=== PATIENT | female | born 1950 | race Caucasian/White ===

== ENCOUNTER 2016-11-12 10:01 | Emergency (ER) | payer MEDICARE, OTHER ==
[2016-11-12] MEDS ORDERED: ACETAMINOPHEN IV (For NPO) 1,000 MG in EMPTY BAG 1 BAG IVPB STA (10:56)
[2016-11-12] MEDS ORDERED: METOCLOPRAMIDE 5 MG/ML 2 ML VIAL IVP STA (10:56)
[2016-11-12] MEDS ORDERED: diphenhydrAMINE 50 MG/ML 1 ML VIAL IVP STA (10:56)
[2016-11-12 12:14] VITALS: RESP 18; TEMP 97.3
[2016-11-12] MEDS ORDERED: FLUCONAZOLE 150 MG TAB PO STA (12:43)
--- NOTE | 2016-11-12 12:43 | ED ---
General Adult HPI - General Chief complaint: Headache Stated complaint: Congestion Time Seen by Provider: 11/12/16 10:36 Source: patient Mode of arrival: ambulatory Limitations: no limitations - History of Present Illness Initial comments: 66-year-old female presenting for evaluation of sinus congestion and headache. She states that her symptoms started about 6 days ago and she was seen in an urgent care yesterday where she was prescribed Augmentin and discharged home. She states since then her symptoms have continued to worsen with a headache and her congestion has not improved. She denies any fevers chills nausea vomiting or change in vision although she does have light sensitivity. There is no neck rigidity or decreased range of motion. She further denies ataxia. - Related Data Home Medications Medication Instructions Recorded Confirmed Aspirin 81 mg PO DAILY 11/12/16 11/12/16 Atorvastatin [Lipitor] 20 mg PO HS 11/12/16 11/12/16 Cetirizine HCl [Zyrtec] 10 mg PO DAILY 11/12/16 11/12/16 Cholecalciferol [Vitamin D3] 400 unit PO DAILY@1200 11/12/16 11/12/16 Diazepam [Valium] 2 mg PO HS 11/12/16 11/12/16 Levothyroxine Sodium [Synthroid] 137 mcg PO MOTUWETHFR 11/12/16 11/12/16 Levothyroxine Sodium [Synthroid] 150 mcg PO SUSA 11/12/16 11/12/16 Previous Rx's Medication Instructions Recorded Azithromycin [Zithromax Z-pack] 0 mg PO DIRECTED #6 tab 11/12/16 Allergies Allergy/AdvReac Type Severity Reaction Status Date / Time ibuprofen [From Motrin] Allergy Anaphylaxis Verified 11/12/16 12:54 Sulfa (Sulfonamide Allergy Swelling Verified 11/12/16 12:54 Antibiotics) Tetracyclines AdvReac Nausea & Verified 11/12/16 12:54 Vomiting Review of Systems ROS Statement: Those systems with pertinent positive or pertinent negative responses have been documented in the HPI. ROS Other: All systems not noted in ROS Statement are negative. Constitutional: Denies: fever, chills, weakness, weight change Eyes: Reports: other (Light sensitivity). Denies: eye discharge, vision change ENT: Denies: ear pain, throat pain Respiratory: Denies: cough, dyspnea, wheezes, hemoptysis Cardiovascular: Denies: chest pain, palpitations Endocrine: Reports: fatigue. Denies: polydipsia, polyuria Gastrointestinal: Denies: abdominal pain, nausea, vomiting Genitourinary: Denies: urgency, dysuria Musculoskeletal: Denies: back pain, myalgia Skin: Denies: rash, lesions Neurological: Reports: headache. Denies: weakness, numbness, paresthesias, confusion Psychiatric: Denies: anxiety, depression Past Medical History Past Medical History: Cancer, COPD, Thyroid Disorder Additional Past Medical History / Comment(s): breast cancer History of Any Multi-Drug Resistant Organisms: None Reported Past Surgical History: Breast Surgery, Ear Surgery, Hysterectomy, Orthopedic Surgery, Tonsillectomy Additional Past Surgical History / Comment(s): left lumpectomy Past Psychological History: No Psychological Hx Reported Smoking Status: Former smoker Past Alcohol Use History: None Reported Past Drug Use History: None Reported General Exam Limitations: no limitations General appearance: alert, in no apparent distress Head exam: Present: atraumatic, normocephalic, normal inspection Eye exam: Present: normal appearance, PERRL, EOMI Pupils: Present: normal accommodation. Absent: irregular, unequal ENT exam: Present: normal exam, normal oropharynx, mucous membranes moist Neck exam: Present: normal inspection. Absent: tenderness, meningismus Respiratory exam: Present: normal lung sounds bilaterally. Absent: respiratory distress, wheezes, rales Cardiovascular Exam: Present: regular rate, normal rhythm. Absent: bradycardia , tachycardia, irregular rhythm GI/Abdominal exam: Present: soft. Absent: distended, tenderness, guarding Rectal exam: Present: deferred Extremities exam: Present: normal inspection, full ROM, normal capillary refill. Absent: tenderness, pedal edema, joint swelling, calf tenderness Neurological exam: Present: alert, oriented X3, CN II-XII intact, normal gait, reflexes normal. Absent: altered, abnormal gait, motor sensory deficit Psychiatric exam: Present: normal affect, normal mood Skin exam: Present: warm, dry, intact, normal color. Absent: rash Course Vital Signs 11/12/16 11/12/16 11/12/16 10:06 12:13 13:02 Temperature 98.4 F 97.3 F L 97.3 F L Pulse Rate 97 72 68 Respiratory 20 18 18 Rate Blood Pressure 126/79 131/80 139/76 O2 Sat by Pulse 98 95 95 Oximetry Medical Decision Making - Medical Decision Making 66-year-old female presented for evaluation of sinus congestion and pressure with associated headache. On physical examination she is exhibiting sensitivity to light but cranial nerves II through XII are intact with no focal neurologic deficits and she has normal gait and ambulation. Tenderness to palpation over the frontal maxillary sinuses. Patient given a headache cocktail of IV Tylenol, Reglan, and Benadryl with marked improvement in headache. She states that the Augmentin was giving her GI distress and this will be discontinued and she'll be started on a new antibiotic. Patient was advised to follow-up with primary care physician but to return if her symptoms should worsen or persist. She acknowledged an understanding of this information and agreed with this plan of care. Disposition Clinical Impression: Sinusitis, Headache Disposition: HOME SELF-CARE Condition: Stable Instructions: Acute Headache (ED) Additional Instructions: Please use medication as discussed. Please follow up with family doctor if symptoms have not improved over the next two days. Please return to the emergency room if your symptoms increase or worsen or for any other concerns. Prescriptions: Azithromycin [Zithromax Z-pack] 0 mg PO DIRECTED #6 tab Referrals: Jaciel Mathias MD [Primary Care Provider] - 1-2 days Time of Disposition: 12:45
[2016-11-12 13:09] VITALS: BP 139/76; PULSE 68
[2016-11-12] MEDS ORDERED: ACET/COD 300 MG/30 MG STARTER PACK 6 TAB BTL PO STA (13:09)
== END 2016-11-12 13:12 | disposition home or self-care (01) ==
LOC: EC 10:01
DX: J32.9 Chronic sinusitis, unspecified (principal); E07.9 Disorder of thyroid, unspecified; Z79.82 Long term (current) use of aspirin; Z79.899 Other long term (current) drug therapy; Z88.2 Allergy status to sulfonamides; Z88.6 Allergy status to analgesic agent; Z87.891 Personal history of nicotine dependence
CPT/HCPCS: 99283; 96374; 96375 ×2; J1200; J2765; J0131

== ENCOUNTER → 2017-05-15 | Outpatient (CLI) | payer MEDICARE, OTHER ==
--- NOTE | 2017-05-22 13:21 | MM ---
Reason for exam: additional evaluation requested from prior study. Last mammogram was performed 1 year ago. History: Patient is postmenopausal, has history of breast cancer at age 53, and history of high-risk lesion on a previous biopsy. Family history of breast cancer in sister at age 57. Malignant stereotactic core biopsy of the left breast, January 02, 2004. Cyst aspiration of the left breast. Core biopsy of the left breast. Lumpectomy of the left breast. Radiation therapy of the left breast. Took hormonal contraceptives for 3 years beginning at age 24. Took estrogen for 8 years beginning at age 43. Took tamoxifen for 5 years beginning at age 54. Physical Findings: A clinical breast exam by your physician is recommended on an annual basis and results should be correlated with mammographic findings. MG 3D Diag Mammo W/Cad XENIA Bilateral CC and MLO view(s) were taken. Prior study comparison: May 13, 2016, bilateral MG 3d diag mammo w/cad XENIA. March 20, 2015, bilateral MG diagnostic mammo w CAD XENIA. The breast tissue is heterogeneously dense. This may lower the sensitivity of mammography. There is chronic nodularity bilaterally. Stable post operative changes in the left breast. No significant new findings when compared with previous films. These results were verbally communicated with the patient and result sheet given to the patient on 05/15/17. ASSESSMENT: Benign, BI-RAD 2 RECOMMENDATION: Follow-up diagnostic mammogram of both breasts in 1 year. Manage patient on a clinical basis.
== END | disposition home or self-care (01) ==
LOC: RADMAMWWP 09:23
PROVIDERS: ATTEND Internal Medicine Hematology & Oncology
DX: Z08 Encounter for follow-up examination after completed treatment for malignant neoplasm (principal); Z85.3 Personal history of malignant neoplasm of breast
CPT/HCPCS: G0204; G0279

== ENCOUNTER → 2018-01-16 | Outpatient (CLI) | payer MEDICARE, OTHER ==
[2018-01-16 17:00] LABS: Basophils # (A) 0.1 k/uL (0-0.2); Basophils % (A) 1 %; Eosinophils # (A) 0.2 k/uL (0-0.7); Eosinophils % (A) 3 %; HCT 45.1 % (34.0-46.0); HGB 14.7 gm/dL (11.4-16.0); Lymphocytes # (A) 1.8 k/uL (1.0-4.8); Lymphocytes % (A) 29 %; MCH 28.5 pg (25.0-35.0); MCHC 32.6 g/dL (31.0-37.0); MCV 87.6 fL (80.0-100.0); Mean Platelet Volume 8.2; Monocytes # (A) 0.4 k/uL (0-1.0); Monocytes % (A) 7 %; Neutrophils # (A) 3.7 k/uL (1.3-7.7); Neutrophils % (A) 58 %; Platelet Count 234 k/uL (150-450); RBC 5.15 m/uL (3.80-5.40); RDW 13.7 % (11.5-15.5); WBC 6.3 k/uL (3.8-10.6)
[2018-01-16 17:04] LABS: Appearance,Urine Clear (Clear); Bilirubin,Urine Negative (Negative); Blood,Urine Negative (Negative); Color,Urine Yellow; Glucose,Urine (UA) Negative (Negative); Ketones,Urine Negative (Negative); Leukocyte Esterase,Urine Trace (Negative); Mucus,Urine Rare /hpf; Nitrite,Urine Negative (Negative); PH, Urine 6.5 (5.0-8.0); Protein,Urine Negative (Negative); RBC,Urine <1 /hpf (0-5); Specific Gravity,Urine 1.017 (1.001-1.035); Squamous Epithelial Cell,Urine <1 /hpf (0-4); Urobilinogen,Urine <2.0 mg/dL (<2.0); WBC,Urine 1 /hpf (0-5)
[2018-01-16 17:24] LABS: ALT 36 U/L (9-52); AST 22 U/L (14-36); Albumin 4.3 g/dL (3.5-5.0); Alkaline Phosphatase 148 U/L (38-126); Anion Gap 13 mmol/L; Blood Urea Nitrogen 17 mg/dL (7-17); C Reactive Protein <5.0 mg/L (<10.0); Calcium 9.8 mg/dL (8.4-10.2); Carbon Dioxide 27 mmol/L (22-30); Chloride 102 mmol/L (98-107); Glucose 110 mg/dL (74-99); Potassium 4.4 mmol/L (3.5-5.1); Sodium 142 mmol/L (137-145); Total Bilirubin 0.2 mg/dL (0.2-1.3)
[2018-01-16 18:12] LABS: Creatine Kinase 64 U/L (30-135)
[2018-01-16 18:27] LABS: T4, Free (Free Thyroxine) 1.94 ng/dL (0.78-2.19)
[2018-01-16 19:11] LABS: Erythrocyte Sedimentation Rate 20 mm/hr (0-20)
[2018-01-17 01:30] LABS: Cyclic Citrullinated Pep IgG NEGATIVE (NEGATIVE)
[2018-01-17 01:53] LABS: Rheumatoid Factor 11 IU/mL (0-15); Streptolysin O Ab(ASO) 104 IU/mL (0-200)
[2018-01-17 02:02] LABS: Vitamin D 25 Hydroxy 53.7 ng/mL (30.0-100.0)
[2018-01-17 04:46] LABS: Angiotensin-1 Converting Enz. 65 U/L (8-52)
[2018-01-17 12:53] LABS: HLA B27 NEGATIVE
== END | disposition home or self-care (01) ==
LOC: LABWHC1 16:25
PROVIDERS: ATTEND Orthopaedic Surgery
DX: M17.12 Unilateral primary osteoarthritis, left knee (principal); M21.162 Varus deformity, not elsewhere classified, left knee; S83.242A Other tear of medial meniscus, current injury, left knee, initial encounter; M79.641 Pain in right hand
CPT/HCPCS: 36415; 80053; 81001; 82164; 82306; 82550; 84439; 84443; 84550; 85025; 85652; 86038; 86060; 86140; 86200; 86431; 86618; 86812

== ENCOUNTER → 2018-02-15 | Outpatient (CLI) | payer MEDICARE, OTHER ==
[2018-02-15 09:40] LABS: Basophils # (A) 0.1 k/uL (0-0.2); Basophils % (A) 1 %; Eosinophils # (A) 0.2 k/uL (0-0.7); Eosinophils % (A) 5 %; HCT 40.9 % (34.0-46.0); HGB 13.8 gm/dL (11.4-16.0); Lymphocytes # (A) 1.5 k/uL (1.0-4.8); Lymphocytes % (A) 35 %; MCH 29.4 pg (25.0-35.0); MCHC 33.7 g/dL (31.0-37.0); MCV 87.3 fL (80.0-100.0); Mean Platelet Volume 7.6; Monocytes # (A) 0.3 k/uL (0-1.0); Monocytes % (A) 8 %; Neutrophils # (A) 2.1 k/uL (1.3-7.7); Neutrophils % (A) 48 %; Platelet Count 199 k/uL (150-450); RBC 4.68 m/uL (3.80-5.40); RDW 13.9 % (11.5-15.5); WBC 4.4 k/uL (3.8-10.6)
[2018-02-15 10:00] LABS: ALT 34 U/L (9-52); AST 20 U/L (14-36); Alkaline Phosphatase 118 U/L (38-126); Anion Gap 9 mmol/L; Blood Urea Nitrogen 16 mg/dL (7-17); C Reactive Protein 7.9 mg/L (<10.0); Calcium 9.9 mg/dL (8.4-10.2); Carbon Dioxide 28 mmol/L (22-30); Chloride 103 mmol/L (98-107); Cholesterol 140 mg/dL (<200); Glucose 110 mg/dL (74-99); HDL Cholesterol 63 mg/dL (40-60); LDL Cholesterol,Calculated 45 mg/dL (0-99); Potassium 4.9 mmol/L (3.5-5.1); Sodium 140 mmol/L (137-145); Total Bilirubin 0.4 mg/dL (0.2-1.3); Total Protein 6.5 g/dL (6.3-8.2); Triglycerides 160 mg/dL (<150)
[2018-02-15 12:51] LABS: Erythrocyte Sedimentation Rate 23 mm/hr (0-20)
[2018-02-15 16:15] LABS: Rheumatoid Factor 10 IU/mL (0-15)
[2018-02-15 16:19] LABS: Vitamin D 25 Hydroxy 62.6 ng/mL (30.0-100.0)
[2018-02-15 16:39] LABS: Folate, Serum 18.8 ng/mL
[2018-02-15 16:57] LABS: Anti-DNA, DS unit <1.0 IU/mL; Cyclic Citrullinated Pep IgG NEGATIVE (NEGATIVE); DNA Double-Stranded NEGATIVE (NEGATIVE); RNP <0.2 AI
[2018-02-15 18:08] LABS: Hepatitis B Core IgM Non-Reactive (Non-Reactive); Hepatitis B Surface AB- Quant 3.5 mIU/mL; Hepatitis C IgG Antibody Non-Reactive (Non-Reactive)
== END | disposition home or self-care (01) ==
LOC: LABWHC1 08:58
PROVIDERS: ATTEND Internal Medicine Interventional Cardiology
DX: M25.50 Pain in unspecified joint (principal)
CPT/HCPCS: 36415; 80053; 80061; 82306; 82607; 82746; 84165; 85025; 85652; 86038; 86140; 86160; 86200; 86225; 86235; 86431; 86705; 86706; 86803; 87340

== ENCOUNTER → 2018-05-10 | Outpatient (CLI) | payer MEDICARE, OTHER ==
[2018-05-10 09:53] LABS: ALT 24 U/L (9-52); AST 23 U/L (14-36); Cholesterol 170 mg/dL (<200); HDL Cholesterol 68 mg/dL (40-60); LDL Cholesterol,Calculated 71 mg/dL (0-99); Triglycerides 154 mg/dL (<150)
== END | disposition home or self-care (01) ==
LOC: LABWHC1 08:37
PROVIDERS: ATTEND Internal Medicine Interventional Cardiology
DX: E78.2 Mixed hyperlipidemia (principal)
CPT/HCPCS: 36415; 80061; 84450; 84460

== ENCOUNTER → 2018-06-11 | Outpatient (CLI) | payer MEDICARE, OTHER ==
--- NOTE | 2018-06-11 14:32 | MM ---
Reason for exam: additional evaluation requested from prior study. Last mammogram was performed 1 year and 1 month ago. History: Patient is postmenopausal, has history of breast cancer at age 53, and history of high-risk lesion on a previous biopsy. Family history of breast cancer in sister at age 57. Malignant stereotactic core biopsy of the left breast, January 02, 2004. Cyst aspiration of the left breast. Core biopsy of the left breast. Lumpectomy of the left breast. Radiation therapy of the left breast. Took hormonal contraceptives for 3 years beginning at age 24. Took estrogen for 8 years beginning at age 43. Took tamoxifen for 5 years beginning at age 54. Physical Findings: Nurse did not find any significant physical abnormalities on exam. MG 3D Diag Mammo W/Cad XENIA Bilateral CC and MLO view(s) were taken. Prior study comparison: May 15, 2017, bilateral MG 3d diag mammo w/cad XENIA. May 13, 2016, bilateral MG 3d diag mammo w/cad XENIA. The breast tissue is heterogeneously dense. This may lower the sensitivity of mammography. Stable benign calcifications. There is chronic nodularity bilaterally. There is no dominant lesion. Stable post operative changes left breast. No significant new findings when compared with previous films. These results were verbally communicated with the patient and result sheet given to the patient on 06/11/18. ASSESSMENT: Benign, BI-RAD 2 RECOMMENDATION: Follow-up diagnostic mammogram of both breasts in 1 year.
--- NOTE | 2018-06-11 15:35 | BD ---
EXAMINATION TYPE: Axial Bone Density DATE OF EXAM: 06/11/2018 COMPARISON: 06/08/2016 CLINICAL HISTORY: Height: 65.5 IN Weight: 185 LBS FRAX RISK QUESTIONS: Family History (Parent hip fracture): YES MOTHER Secondary Osteoporosis: 3. Menopause before 45: YES AGE 43 RISK FACTORS HISTORY OF: Family History of Osteoporosis: YES MOTHER Active: YES Postmenopausal woman: AGE 43 MEDICATIONS: Thyroid Medications: YES Which medication: Levothyroxine How Lon+ YEARS Additional Medications: VIT D, LEVOTHYROXINE, LISINOPRIL,ZYRTEC, DIAZEPAM, KRILL OIL, ASPIRIN 81 MG Additional History: BREAST CANCER WITH RADIATION EXAM MEASUREMENTS: Bone mineral densitometry was performed using the [employer] Mobile System. Bone mineral density as measured about the Lumbar spine is: ----- L1-L4(G/cm2): 1.074 T Score Values are as follows: ----- L2: -1.4 ----- L3: -1.1 ----- L4: -0.1 ----- L1-L4: -1.2 Bone mineral density has: Increased 2.1% since study of: 06/08/2016 Bone mineral density about the R hip (g/cm2): 0.739 Bone mineral density about the L hip (g/cm2): 0.782 T Score values are as follows: -----R Neck: -2.1 -----L Neck: -1.8 -----R Total: -1.9 -----L Total: -1.5 Bone mineral density has: Decreased -4.0% since study of: 06/08/2016 IMPRESSION: Osteopenia and as such there is increased fracture risk. NOTE: T-SCORE=SD OF THE YOUNG ADULT MEAN.
== END ==
LOC: RADMAMWWP 13:23
PROVIDERS: ATTEND Internal Medicine Hematology & Oncology
DX: Z08 Encounter for follow-up examination after completed treatment for malignant neoplasm (principal); Z85.3 Personal history of malignant neoplasm of breast; M85.80 Other specified disorders of bone density and structure, unspecified site
CPT/HCPCS: 77080; 77066; G0279; 77062

== ENCOUNTER → 2018-07-17 | Outpatient (CLI) | payer MEDICARE, OTHER ==
[2018-07-17 11:38] LABS: HCT 44.1 % (34.0-46.0); HGB 14.2 gm/dL (11.4-16.0); MCH 28.8 pg (25.0-35.0); MCHC 32.2 g/dL (31.0-37.0); MCV 89.5 fL (80.0-100.0); Mean Platelet Volume 9.2; Platelet Count 247 k/uL (150-450); RBC 4.93 m/uL (3.80-5.40); RDW 14.2 % (11.5-15.5); WBC 4.3 k/uL (3.8-10.6)
[2018-07-17 11:49] LABS: ALT 32 U/L (9-52); AST 23 U/L (14-36); Albumin 4.3 g/dL (3.5-5.0); Alkaline Phosphatase 125 U/L (38-126); Anion Gap 10 mmol/L; Blood Urea Nitrogen 20 mg/dL (7-17); Calcium 10.1 mg/dL (8.4-10.2); Carbon Dioxide 24 mmol/L (22-30); Chloride 106 mmol/L (98-107); Glucose 112 mg/dL (74-99); Potassium 4.7 mmol/L (3.5-5.1); Sodium 140 mmol/L (137-145); Total Bilirubin 0.4 mg/dL (0.2-1.3); Total Protein 7.2 g/dL (6.3-8.2)
[2018-07-17 11:55] LABS: Appearance,Urine Cloudy (Clear); Bilirubin,Urine Negative (Negative); Blood,Urine Negative (Negative); Color,Urine Yellow; Glucose,Urine (UA) Negative (Negative); Ketones,Urine Negative (Negative); Leukocyte Esterase,Urine Moderate (Negative); Mucus,Urine Occasional /hpf; Nitrite,Urine Negative (Negative); PH, Urine 5.5 (5.0-8.0); Protein,Urine Negative (Negative); RBC,Urine 2 /hpf (0-5); Specific Gravity,Urine 1.022 (1.001-1.035); Squamous Epithelial Cell,Urine 4 /hpf (0-4); Urobilinogen,Urine <2.0 mg/dL (<2.0); WBC,Urine 3 /hpf (0-5)
[2018-07-17 12:49] LABS: Partial Thromboplastin Time 24.7 sec (22.0-30.0); Prothrombin Time 9.6 sec (9.0-12.0)
== END ==
LOC: LABPAT 10:19
PROVIDERS: ATTEND Orthopaedic Surgery
DX: Z01.812 Encounter for preprocedural laboratory examination (principal)
CPT/HCPCS: 36415; 80053; 81001; 85027; 85610; 85730; 87070

== ENCOUNTER 2018-08-03 10:50 | Inpatient (IN) | payer MEDICARE, OTHER ==
[2018-07-30 15:35] VITALS: BMI 29.9
[~2018-08-03 10:50] MED LIST: ACETAMINOPHEN TAB 500 MG TAB PO ONE; DEXAMETHASONE SOD PHOSPHATE 10 MG/ML 1 ML VIAL IV ONE; LIDOCAINE 1% 20 ML VIAL (10MG/ML) FOR IV START INTRADERMA PRN; MIDAZOLAM (PF) 2 MG/2 ML VIAL IV PRN; ONDANSETRON 4 MG/2 ML VIAL IVP ONE; TRANEXAMIC ACID 1,000 MG in SODIUM CHLORIDE 0.9% 50 ML IVPB ONE; ceFAZolin IN SWFI 2 GM/20 ML SYRINGE IVP ONE; fentaNYL (PF) 50 MCG/ML 2 ML AMP IV PRN
[2018-08-03] MEDS: LACTATED RINGERS 1,000 ML IV SCH ×4 (11:58→21:29)
[2018-08-03] MEDS ORDERED: ROPIVACAINE 246.25 MG, EPINEPHrine 0.5 MG, cloNIDine HCL/PF 80 MCG, WATER FOR INJECTION... MISCELLANE ONE ×4 (12:03)
[2018-08-03] MEDS ORDERED: TRANEXAMIC ACID 1,000 MG/10 ML VIAL ONE (12:22)
[2018-08-03] MEDS ORDERED: SUCCINYLCHOLINE CHLORIDE 100 MG/5 ML SYR IV ONE (12:22)
[2018-08-03] MEDS ORDERED: PHENYLEPHRINE-0.9% NACL SYG 1 MG/10 ML SYRINGE ONE (12:22)
[2018-08-03] MEDS ORDERED: LIDOCAINE 1% INJ 10MG/ML (20 ML MDV) ONE (12:22)
[2018-08-03] MEDS ORDERED: GLYCOPYRROLATE 0.2 MG/ML 2 ML VIAL ONE (12:22)
[2018-08-03] MEDS ORDERED: PROPOFOL 10 MG/ML 20 ML VIAL IV ONE (12:22)
[2018-08-03] MEDS ORDERED: SODIUM CHLORIDE 0.9% 100 ML BAG ONE (12:22)
[2018-08-03] MEDS ORDERED: HYDROmorphone (PF) 1 MG/ML ONE (12:22)
[2018-08-03] MEDS ORDERED: NEOSTIGMINE 1 MG/ML 10 ML VIAL ONE (12:22)
[2018-08-03] MEDS ORDERED: fentaNYL (PF) 50 MCG/ML 2 ML AMP ONE (12:22)
[2018-08-03] MEDS ORDERED: ROCURONIUM BROMIDE 10 MG/ML 10 ML VIAL IV ONE (12:22)
[2018-08-03] MEDS ORDERED: MIDAZOLAM 2 MG/2 ML VIAL ONE (12:22)
[2018-08-03] MEDS ORDERED: ceFAZolin 3,000 MG in SODIUM CHLORIDE 0.9% IRRIGATIO 3,000 ML IRRIGATION ONE (13:06)
[2018-08-03] MEDS ORDERED: LACTATED RINGERS 1,000 ML IV ONE ×2 (14:23)
[2018-08-03] MEDS ORDERED: NA PHOS,M-B/NA PHOS,DI-BA 133 ML ENEMA RECTAL PRN (14:59)
[2018-08-03] MEDS ORDERED: HYDROmorphone 1 MG/ML 1 ML SYRINGE IVP PRN (14:59)
[2018-08-03] MEDS ORDERED: MAGNESIUM HYDROXIDE 2,400 MG/10 ML CUP PO PRN (14:59)
[2018-08-03] MEDS ORDERED: HYDROcodone/APAP 5-325MG 1 EACH TAB PO PRN (14:59)
[2018-08-03] MEDS ORDERED: NALOXONE 0.4 MG/ML 1 ML VIAL IV PRN (14:59)
[2018-08-03] MEDS ORDERED: HYDROmorphone 0.5 MG/0.5 ML SYRINGE IVP PRN (14:59)
[2018-08-03] MEDS: HYDROmorphone 1 MG/ML 1 ML SYRINGE IVP PRN ×4 (15:14→15:25)
--- NOTE | 2018-08-03 15:45 | XR ---
EXAMINATION TYPE: XR knee limited LT DATE OF EXAM: 08/03/2018 COMPARISON: NONE TECHNIQUE: Two views submitted HISTORY: Post op FINDINGS: There is a prosthetic knee in near anatomic alignment. There is soft tissue edema and emphysema. IMPRESSION: 1. Postoperative change. Appears in near-anatomic alignment
[2018-08-03] MEDS: HYDROcodone/APAP 5-325MG 1 EACH TAB PO PRN (17:11)
[2018-08-03] MEDS: DIAZEPAM 2 MG TAB PO SCH (21:27)
[2018-08-03] MEDS: SENNOSIDES-DOCUSATE SODIUM 1 EACH TAB PO SCH (21:27)
[2018-08-03] MEDS: ATORVASTATIN 20 MG TAB PO SCH (21:27)
[2018-08-03] MEDS: HYDROmorphone 0.5 MG/0.5 ML SYRINGE IVP PRN (21:27)
[2018-08-03] MEDS: ceFAZolin IN SWFI 2 GM/20 ML SYRINGE IVP SCH (21:31)
[2018-08-03] MEDS ORDERED: TEMAZEPAM 15 MG CAP PO PRN (22:00)
--- NOTE | 2018-08-03 23:15 | CONS ---
CONSULTATION DATE OF CONSULTATION: August 03, 2018. REASON FOR CONSULTATION: Medical management requested by Dr. Wright. CONSULTATION: This is a pleasant 68-year-old patient of Dr. Mathias. Has undergone left total knee arthroplasty. Postprocedure pain is controlled. No nausea, vomiting. Did tolerate her supper. No chest pain. 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 REVIEW OF SYSTEMS: CONSTITUTIONAL: None. HEENT decreased hearing. RESPIRATORY: None. CARDIOVASCULAR: None. GASTROINTESTINAL: None. GENITOURINARY: None. MUSCULOSKELETAL: Arthritic pain in many joints. DERMATOLOGICAL, HEMATOLOGIC, LYMPHATIC: none. PSYCHIATRY none. NEUROLOGICAL: None. PAST MEDICAL HISTORY: Of asthma, hyperlipidemia, hypertension, osteoarthritis in the hips, hands, etc. 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 PAST SURGICAL HISTORY: Breast surgery, ear surgery, hysterectomy, tonsillectomy, left breast lumpectomy, left eardrum repair, multiple eye surgeries. SOCIAL HISTORY: The patient smoked for about 8 years, stopped in 1999. Alcohol occasionally. . FAMILY HISTORY: Stomach cancer. HOME MEDICATIONS: 1. Zestril 5 mg p.o. daily. 2. Synthroid 150 mcg on Monday and Monday and 137 mcg on other days. 3. Krill oil 350 mg daily. 4. [place] 10 t.i.d. p.r.n. 5. Valium 2 mg q.h.s. 6. Vitamin D3 5000 units p.o. daily. 7. Zyrtec 10 mg p.o. daily. 8. Lipitor 20 mg q.h.s. 9. Aspirin 81 mg p.o. daily. 10.Senokot S 1 tablet p.o. b.i.d. 11.Xarelto 10 mg daily for surgery. ALLERGIES: TO IBUPROFEN, SULFA, TETRACYCLINE. PHYSICAL EXAMINATION: VITAL SIGNS: Temperature 97.5, pulse 58, respiratory rate 19, blood pressure 124/67, pulse ox 99 percent on 3 L. GENERAL APPEARANCE: Well built, BMI 30. Sitting up comfortable. EYES: Pupils equal. Conjunctivae normal. HEENT: External appearance of nose and ears normal. Oral cavity normal. NECK: JVD not raised. Mass not palpable. RESPIRATORY: Effort normal. LUNGS: Fair entry. CARDIOVASCULAR: 1st and 2nd sounds normal. No edema. ABDOMEN: Soft, nontender. Liver and spleen not palpable. LYMPHATICS: No lymph nodes palpable in the neck or axilla. PSYCHIATRY: Alert and oriented times three. Mood and affect normal. NEUROLOGICAL: Pupils equal. Cranial nerves grossly intact. Power and sensation grossly intact. MUSCULOSKELETAL: Evidence of osteoarthritis especially in the hands. Dressing over the left knee. INVESTIGATIONS: Blood work from July 17, 2018 shows a white count 4.3, hemoglobin 14.2, potassium 4.7, BUN 20, creatinine 0.74. ASSESSMENT: 1. Left total knee arthroplasty. 2. Primary osteoarthritis in multiple joints. 3. Hypertension. 4. Hyperlipidemia. 5. Mild intermittent asthma. 6. Hypothyroid. 7. Obesity; BMI 30. PLAN: Home medications to be resumed. Patient getting Xarelto for DVT prophylaxis. Pain control is in place. Also getting IV fluids. Care was discussed with the patient. Questions were answered. Home medications are resumed. Thank you Dr. Wright. Copy to Dr. Mathias. MMODL / ANGELIAN: [id number] /
[2018-08-04] MEDS: HYDROmorphone 0.5 MG/0.5 ML SYRINGE IVP PRN ×5 (02:27→22:33)
[2018-08-04] MEDS: ceFAZolin IN SWFI 2 GM/20 ML SYRINGE IVP SCH (04:31)
[2018-08-04] MEDS: LEVOTHYROXINE 75 MCG TAB PO SCH (05:45)
[2018-08-04 07:50] LABS: Basophils % (A) 0 %; Eosinophils % (A) 0 %; HGB 12.6 gm/dL (11.4-16.0); Lymphocytes # (A) 1.4 k/uL (1.0-4.8); Lymphocytes % (A) 12 %; MCH 28.7 pg (25.0-35.0); MCHC 32.2 g/dL (31.0-37.0); MCV 89.2 fL (80.0-100.0); Mean Platelet Volume 7.8; Monocytes # (A) 0.7 k/uL (0-1.0); Monocytes % (A) 5 %; Neutrophils # (A) 10.1 k/uL (1.3-7.7); Neutrophils % (A) 82 %; Platelet Count 234 k/uL (150-450); RBC 4.37 m/uL (3.80-5.40); RDW 13.8 % (11.5-15.5); WBC 12.3 k/uL (3.8-10.6)
[2018-08-04] MEDS: HYDROcodone/APAP 5-325MG 1 EACH TAB PO PRN ×3 (07:59→20:03)
[2018-08-04] MEDS: LORATADINE 10 MG TAB PO SCH (08:00)
[2018-08-04] MEDS: LISINOPRIL 5 MG TAB PO SCH (08:00)
[2018-08-04] MEDS: RIVAROXABAN 10 MG TAB PO SCH (08:00)
[2018-08-04] MEDS ORDERED: MELOXICAM 7.5 MG TAB PO SCH (09:00)
--- NOTE | 2018-08-04 09:07 | P.DS ---
Providers Date of admission: 08/03/18 10:50 Expected date of discharge: 08/04/18 Attending physician: Lincoln Wright Consults: 08/03/18 14:59 Consult Physician Routine Consulting Provider: Jaciel Mathias Consult Reason/Comments: medical management Do you want consulting provider notified?: Yes 08/03/18 16:13 Consult Physician Routine Consulting Provider: Chaka Jeff Consult Reason/Comments: medical management Do you want consulting provider notified?: Already Contacted Primary care physician: Jaciel Mathias - Discharge Diagnosis(es) (1) Primary osteoarthritis of left knee Current Visit: Yes Status: Acute (2) Status post total left knee replacement Current Visit: Yes Status: Acute Hospital Course: This is a 68-year-old female with known history of degenerative arthritis of the left knee. The patient presents for evaluation. After discussion and consideration patient elects to proceed with total knee arthroplasty. The patient is seen preoperatively by Dr. Wright and medically cleared for surgery by their primary care physician. Patient is admitted to [facility] on 08/03/2018 for total knee arthroplasty. The procedures performed without complication or sequelae. The patient is doing well postoperatively. Labs and vital signs are stable on day of discharge. On day of discharge patient's knee incision is healing well. There is minimal erythema. There is no drainage noted at this time. There is minimal soft tissue swelling to the knee. Patient has full foot and ankle motion without difficulty or pain. Neurovascular status to the left lower extremity is intact. Patient is discharged home in good condition. Please see med rec for accurate list of home medications. Plan - Discharge Summary Discharge Rx Participant: No New Discharge Prescriptions: New Rivaroxaban [Xarelto] 10 mg PO DAILY #5 tab Sennosides-Docusate Sodium [Senokot-S] 1 tab PO BID #60 tablet No Action Levothyroxine Sodium [Synthroid] 150 mcg PO SUSA Levothyroxine Sodium [Synthroid] 137 mcg PO MOTUWETHFR Cetirizine HCl [Zyrtec] 10 mg PO DAILY Aspirin 81 mg PO DAILY Diazepam [Valium] 2 mg PO HS Atorvastatin [Lipitor] 20 mg PO HS HYDROcodone/APAP 10-325MG [[place] 10-325] 1 tab PO TID PRN PRN Reason: Pain Lisinopril [Zestril] 5 mg PO DAILY Cholecalciferol [Vitamin D3] 5,000 unit PO DAILY Krill/[place]-3/Dha/Epa/Lipids [Krill Oil 350 mg Softgel] 1 each PO DAILY Discharge Medication List Aspirin 81 mg PO DAILY 11/12/16 [History] Atorvastatin [Lipitor] 20 mg PO HS 11/12/16 [History] Cetirizine HCl [Zyrtec] 10 mg PO DAILY 11/12/16 [History] Diazepam [Valium] 2 mg PO HS 11/12/16 [History] Levothyroxine Sodium [Synthroid] 137 mcg PO MOTUWETHFR 11/12/16 [History] Levothyroxine Sodium [Synthroid] 150 mcg PO SUSA 11/12/16 [History] Cholecalciferol [Vitamin D3] 5,000 unit PO DAILY 07/30/18 [History] HYDROcodone/APAP 10-325MG [[place] 10-325] 1 tab PO TID PRN 07/30/18 [History] Krill/[place]-3/Dha/Epa/Lipids [Krill Oil 350 mg Softgel] 1 each PO DAILY [History] Lisinopril [Zestril] 5 mg PO DAILY 07/30/18 [History] Rivaroxaban [Xarelto] 10 mg PO DAILY #5 tab 08/03/18 [Rx] Sennosides-Docusate Sodium [Senokot-S] 1 tab PO BID #60 tablet 08/03/18 [Rx] Follow up Appointment(s)/Referral(s): Linda Brush, PAC [[employer]YSICIAN [employer]] - 2 Weeks Activity/Diet/Wound Care/Special Instructions: Hinged knee brace when up. [facility] to deliver knee brace tonight or early tomorrow - [phone] May shower if no drainage from incision. May bear wt as tolerated w walker. Pain management per patient's primary care physician. Discharge Disposition: HOME WITH HOME HEALTH SERVICES
[2018-08-04] MEDS: traMADol 50 MG TAB PO PRN ×2 (11:25→21:43)
[2018-08-04] MEDS: MULTIVITAMINS, THERA 1 EACH TAB PO SCH (13:24)
[2018-08-04] MEDS: LACTATED RINGERS 1,000 ML IV SCH (13:31)
--- NOTE | 2018-08-04 18:47 | PN ---
PROGRESS NOTE DATE OF SERVICE: 08/04/2018 PRESENTING COMPLAINT: Left knee arthroplasty. INTERVAL HISTORY: Patient is status post left knee arthroplasty, having significant pain. Being followed by Orthopedics. Did tolerate a diet. Has been out of bed to work with therapy. at the bedside. Has slight nausea. No chest pain. REVIEW OF SYSTEMS: Done for constitutional, cardiovascular, GI, pulmonary; relevant findings as above. CURRENT MEDICATIONS: Reviewed. PHYSICAL EXAMINATION: Temperature 98.2 pulse 90, respirations 16, blood pressure 124/71, pulse ox 87% on room air. GENERAL APPEARANCE: Laying in bed, comfortable. EYES: Pupils equal. Conjunctivae normal. NECK: JVD not raised. Mass not palpable. Respiratory effort increased. CARDIOVASCULAR: First and second sounds. No edema. ABDOMEN: Soft, nontender. Liver and spleen not palpable. PSYCHIATRY: Alert and oriented x3. Mood and affect normal. INVESTIGATIONS: White count 12.3, hemoglobin 12.6. ASSESSMENT: 1. Left total knee arthroplasty. 2. Primary osteoarthritis in multiple joints. 3. Hypertension. 4. Hyperlipidemia. 5. Mild intermittent asthma. 6. Hypothyroid. 7. Obesity; BMI 30. PLAN: Continue current medication and treatment plan. Will have the patient use the inspiratory spirometry. Encouraged to be out of bed and sit up. MMODL / IJN: [id number] /
[2018-08-04] MEDS: ATORVASTATIN 20 MG TAB PO SCH (20:03)
[2018-08-04] MEDS: SENNOSIDES-DOCUSATE SODIUM 1 EACH TAB PO SCH (20:04)
[2018-08-04] MEDS: DIAZEPAM 2 MG TAB PO SCH (20:04)
[2018-08-05] MEDS: LACTATED RINGERS 1,000 ML IV SCH ×3 (00:22→08:13)
[2018-08-05] MEDS: HYDROmorphone 0.5 MG/0.5 ML SYRINGE IVP PRN (01:34)
[2018-08-05] MEDS: HYDROcodone/APAP 5-325MG 1 EACH TAB PO PRN ×3 (05:36→15:28)
[2018-08-05] MEDS: LEVOTHYROXINE 75 MCG TAB PO SCH (05:36)
[2018-08-05 07:42] LABS: Glucose,Whole Blood 124 mg/dL (75-99)
[2018-08-05] MEDS: LISINOPRIL 5 MG TAB PO SCH (08:09)
[2018-08-05] MEDS: LORATADINE 10 MG TAB PO SCH (08:10)
[2018-08-05] MEDS: RIVAROXABAN 10 MG TAB PO SCH (08:10)
--- NOTE | 2018-08-05 08:43 | P.PN ---
Subjective Progress Note Date: 08/05/18 This is a 68-year-old female who is status post left total knee arthroplasty. This is postoperative day #2. Patient's discharge was postponed due to pain control. Per nursing, the patient was dizzy this morning when walking to the bathroom. Patient also complains of left calf pain this morning. Patient denies any fever/chills, numbness, weakness, tingling, abdominal pain, shortness of breath or chest pain. Objective - Vital Signs Vital signs: Vital Signs Temp 97.3 F L 08/05/18 07:10 Pulse 84 08/05/18 07:10 Resp 16 08/05/18 07:10 BP 108/68 08/05/18 07:10 Pulse Ox 96 08/05/18 07:10 Intake & Output 08/04/18 08/05/18 08/05/18 18:59 06:59 18:59 Intake Total 400 240 Balance 400 240 Intake: Oral 400 240 Other: # Voids 1 0 1 - Exam Vital signs are stable. Patient is in no acute distress and is alert and oriented 3. Calf is soft and mildly tender to palpation. Dressing is clean, dry, and intact. Patient has full foot and ankle motion without pain or difficulty. Neurovascular status and circulatory status are intact. - Labs CBC & Chem 7: 08/04/18 06:57 Labs: Abnormal Lab Results - Last 24 Hours (Table) 08/05/18 Range/Units 07:26 POC Glucose (mg/dL) 124 H (75-99) mg/dL Assessment and Plan (1) Primary osteoarthritis of left knee Current Visit: Yes Status: Acute Code(s): M17.12 - UNILATERAL PRIMARY OSTEOARTHRITIS, LEFT KNEE SNOMED Code(s): 919874806369527 (2) Status post total left knee replacement Current Visit: Yes Status: Acute Code(s): Z96.652 - PRESENCE OF LEFT ARTIFICIAL KNEE JOINT SNOMED Code(s): 2676941858017 Plan: #1 Continue with routine postoperative care and daily dressing changes. #2 Anticoagulation with Xarelto. #3 Physical therapy today. #4 Appreciate input from medicine. #5 Doppler US of the left lower extremity is pending. #6.Anticipate discharge home with home care today if cleared medically.
[2018-08-05] MEDS ORDERED: HYDROcodone/APAP 5-325MG 1 EACH TAB PO PRN (08:46)
--- NOTE | 2018-08-05 09:22 | US ---
EXAMINATION TYPE: US venous doppler duplex LE LT DATE OF EXAM: 08/05/2018 9:06 AM COMPARISON: NONE CLINICAL HISTORY: pain. Left knee replacement 2 days ago, left leg pain, muscle spasms, patient on bl ood thinners SIDE PERFORMED: Left TECHNIQUE: The lower extremity deep venous system is examined utilizing real time linear array sonog elsy with graded compression, doppler sonography and color-flow sonography. VESSELS IMAGED: External Iliac Vein (EIV) Common Femoral Vein Deep Femoral Vein Greater Saphenous Vein * Femoral Vein Popliteal Vein Small Saphenous Vein * Proximal Calf Veins (* superficial vessels) Limited visualization of popliteal vein due to knee swelling and patient's limited range of motion with her knee due to pain. Left Leg: Appears negative for DVT No popliteal fossa lesion was identified. IMPRESSION: THIS EXAMINATION IS NEGATIVE FOR DVT WITHIN THE LEFT LEG.
[2018-08-05] MEDS: traMADol 50 MG TAB PO PRN (10:52)
[2018-08-05] MEDS: MULTIVITAMINS, THERA 1 EACH TAB PO SCH (10:52)
[2018-08-05 14:23] VITALS: RESP 18; TEMP 98.1
[2018-08-05 15:13] VITALS: BP 123/79; PULSE 92
--- NOTE | 2018-08-05 23:18 | PN ---
PROGRESS NOTE DATE OF SERVICE: 08/05/2018 PRESENT COMPLAINT: Left knee arthroplasty. INTERVAL HISTORY: Patient is status post left knee arthroplasty. Pain is much better controlled today. Has been out of bed. Feeling well. at the bedside. No new issues. Did tolerate her meal. REVIEW OF SYSTEMS: Done for constitutional, cardiovascular, GI, pulmonary, musculoskeletal and findings as above. CURRENT MEDICATIONS: Reviewed. PHYSICAL EXAMINATION: VITAL SIGNS: Temperature 97.3, pulse 84, respirations 16, blood pressure 108/68, pulse ox 96 percent on room air. GENERAL APPEARANCE: Lying in bed. Feeling well. EYES: Pupils equal. Conjunctivae normal. NECK: JVD not raised. Mass not palpable. RESPIRATORY: Effort normal. LUNGS are clear. CARDIOVASCULAR: 1st and 2nd sounds normal. No edema. ABDOMEN: Soft, nontender. Liver and spleen not palpable. PSYCHIATRY: Alert and oriented times three. Mood and affect normal. MUSCULOSKELETAL: Dressing of the left knee. INVESTIGATIONS: Accu-Cheks was 124. ASSESSMENT: 1. Left total knee arthroplasty. 2. Primary osteoarthritis multiple joints. 3. Hypertension. 4. Hyperlipidemia. 5. Mild intermittent asthma. 6. Hypothyroid. 7. Obesity; BMI 30. I did check patient's orthostatics. No orthostatics. Patient is otherwise doing well. If discharged, should follow up with the family doctor. MMODL / IJN: [id number] /
[2018-08-06] MEDS ORDERED: LEVOTHYROXINE 137 MCG TAB PO SCH (06:30)
--- NOTE | 2018-08-27 13:07 | P.OP ---
Date of Procedure: 08/03/18 Procedure(s) Performed: PREOPERATIVE DIAGNOSIS: Left knee severe osteoarthritis with genu varum POSTOPERATIVE DIAGNOSIS: Left knee severe osteoarthritis with genu varum OPERATION: Left knee cemented total replacement arthroplasty. ANESTHESIA: Spinal ESTIMATED BLOOD LOSS: 100 ml. CONCRETE MIXER TRUCK DRIVER: Linda Brush PA-C (assistance with: patient positioning, retraction, exposure, hemostasis, leg positioning, implantation, irrigation, closure, dressing) COMPLICATIONS: None apparent. COMPONENTS IMPLANTED: Persona system from [employer] INDICATIONS: Ramya is a 68-year-old female with a history of left knee osteoarthritis. Conservative treatment has been tried and has been unsuccessful in controlling symptoms adequately. The operation of knee replacement has been discussed at length in the office, as well as potential risks and complications. These are inclusive of, but not limited to: bleeding, infection, scarring, discomfort, blood vessel and nerve damage, need for further surgery, failure to relieve symptoms, persistence, recurrence, or worsening of problems, loosening, dislocation, wear, blood clot, pulmonary embolism, , gait dysfunction, stiffness, and other risks as discussed in the office. The patient elects to proceed and the consent form has been signed. PROCEDURE: The patient was taken to the operating room and positioned on the operating room table in the supine position. Anesthesia was initiated. Care was taken to make sure that all pressure points were adequately padded. The operative lower extremity was prepped and draped in the usual aseptic fashion using ChloraPrep. Ioban drape was used for the case and the patient received intravenous antibiotics within one hour of the incision. A pneumotourniquet and leg tong were used for the case. The limb was exsanguinated with an Esmarch bandage and the tourniquet was inflated to 350 mmHg. Time-out was called confirming the patient's identity, side, procedure and administration of antibiotics and tranexamic acid, 1 g IV. The incision was then created midline directly over the knee, carried down through skin and into the subcutaneous tissues and down to fascia. Full thickness subcutaneous medial flap was developed. Medial parapatellar arthrotomy was performed and the interior of the knee was inspected. There was end-stage osteoarthritis of the knee with a mild to moderate genu varum type deformity. The fat pad was excised and proximal medial release on the tibia was completed using meticulous dissection and a curved osteotome. The anterior cruciate ligament was taken down. Note was made of significant attrition of the anterior and significant degenerative appearance of the posterior cruciate ligaments. The exposure was excellent. The knee was flexed 90 degrees and the patella was everted. A spot was chosen on the femur approximately 1 cm anterior to the posterior cruciate ligament insertion and an intramedullary hole was created within the femur. The intramedullary guide was then set to 5 degrees of valgus. The distal cutting block was attached and pinned into position. An appropriate amount of distal femoral resection was set. The oscillating saw was then used to make the distal femoral cut. This cut was confirmed to be flat with the flat end of an osteotome. The retractors were placed around the tibia and the tibial surface was addressed. The angle and depth of resection was adjusted using an extramedullary cutting guide. The guide had a built-in 3 degree posterior slope cut. Once the cutting guide was adjusted appropriately and in line with the axis of the tibia and confirmed to be in good position in relation to the second metatarsal and transmalleolar axis, the tibial cut was then created with protection of the posterior neurovascular structures and the collateral ligaments. The tibial cut surface was removed and sized. Femoral sizing was then accomplished using anterior referencing. Care was taken to analyze the posterior condyles for signs of deficiency or severe wear, and adjustments to the guide were made, as appropriate. 3 degree external rotation pins were placed. The cutting jig for the femur was applied to these pins. The planned cuts were further analyzed prior to performing them with the oscillating saw. No femoral notching was produced. Bone fragments were removed and the cut surfaces were finished, as necessary, with a reciprocating saw. Spacer block technique was then used to confirm that the flexion and extension gaps were equal. Soft tissue releases and adjustment of the tibial and/or femoral cuts were made, as necessary, until the gaps were equal. This included release of the posterior cruciate ligament, which was tight in this patient. The femur was then further finished for a posterior cruciate ligament substituting component. Patellar resurfacing was performed using a reamer. The size of the required patellar component was estimated and the patellar surface was then reamed down to a residual thickness which would recreate the wilton thickness with the component. The exact placement of the patellar component was adjusted for position based on preoperative x-rays and intraoperative findings. Prior to placing trial components, anesthetic solution consisting of ropivicaine with epinephrine, ketorolac, and clonidine was injected carefully and methodically in a grid pattern using aspiration technique into the soft tissue around the knee circumferentially, starting with the deeper tissues first and progressing to fascia, and then finally the skin/subcutaneous tissue. Particular care was taken when injecting the posterior capsule. The trial components were inserted. The tibial tray was allowed to self center and the patella was noted to track very well. The position of the tibial component was marked and the tibia was then finished for a stemmed tibial component. Cement was mixed on the back table and applied to the final components. Trial components were removed and the cut surfaces of the bone were pulse lavaged thoroughly and dried. Cement was then applied to the tibial surface and pressurized into the surface using finger pressurization technique. The tibial component was then applied and excess cement was removed after it was impacted securely and noted to be flush with the cut surface. In similar fashion, the cement was applied to the cut femoral surface, pressurized in using finger pressurization and the component was impacted into place. Excess cement was removed. The polyethylene spacer was then implanted and locked into position. The patellar component was then applied in similar technique and a patellar clamp was used to hold the patella in place as the cement hardened. Once the cement had fully hardened, the knee was reinspected. Any other cement extrusion was removed and final kinematic testing showed range of motion from 0 to 130 degrees with excellent stability, both medially and laterally and appropriate alignment of the leg. Patellar tracking was excellent. The knee was then thoroughly pulse lavaged with normal saline. The tourniquet was deflated and hemostasis was obtained with electrocautery and IV tranexamic acid, 1 g given prior to inflation of the tourniquet and another gram given at the time of closure. Closure was with #2 Ethibond in the fascia and supplemented with #2 Quill, 2-0 Vicryl suture was used for the subcutaneous tissues and 3-0 Quill for the skin. Dermabond/Steri-Strips were then applied. A lightly compressive dressing was applied using Webril and an Carroll wrap. The patient was then transferred to stretcher and taken to the recovery room in stable condition. Sponge and needle counts were correct.
== END 2018-08-05 17:11 | disposition home health service (06) | DRG 470 ==
LOC: 2ORMAIN 10:50 → 4SSUR 15:02
PROVIDERS: ADMIT Orthopaedic Surgery; ATTEND Orthopaedic Surgery
PROC: 0SRD0J9 Replacement of Left Knee Joint with Synthetic Substitute, Cemented, Open Approach (ICD-10-PCS; principal; 2018-08-03 12:30)
DX: M17.0 Bilateral primary osteoarthritis of knee (principal); J43.9 Emphysema, unspecified; M21.162 Varus deformity, not elsewhere classified, left knee; E05.00 Thyrotoxicosis with diffuse goiter without thyrotoxic crisis or storm; E03.9 Hypothyroidism, unspecified; J45.20 Mild intermittent asthma, uncomplicated; E78.5 Hyperlipidemia, unspecified; I10 Essential (primary) hypertension; H91.90 Unspecified hearing loss, unspecified ear; M16.0 Bilateral primary osteoarthritis of hip; M19.042 Primary osteoarthritis, left hand; M19.041 Primary osteoarthritis, right hand; E66.9 Obesity, unspecified; Z68.30 Body mass index [BMI] 30.0-30.9, adult; Z79.82 Long term (current) use of aspirin; Z79.890 Hormone replacement therapy; Z79.899 Other long term (current) drug therapy; Z87.891 Personal history of nicotine dependence; Z85.3 Personal history of malignant neoplasm of breast; Z90.710 Acquired absence of both cervix and uterus; Z92.3 Personal history of irradiation; Z88.1 Allergy status to other antibiotic agents; Z88.2 Allergy status to sulfonamides; Z88.8 Allergy status to other drugs, medicaments and biological substances; Z80.0 Family history of malignant neoplasm of digestive organs
CPT/HCPCS: 85025; 88300

== ENCOUNTER 2018-08-29 12:07 | Emergency (ER) | payer MEDICARE, OTHER ==
[2018-08-29 12:17] VITALS: TEMP 98.1
[2018-08-29] MEDS ORDERED: SODIUM CHLORIDE 0.9% 1,000 ML IV STA (12:52)
--- NOTE | 2018-08-29 12:54 | ED ---
Syncope HPI - General Chief Complaint: Syncope Stated Complaint: Hypertensive/Dizziness Time Seen by Provider: 08/29/18 12:32 Source: patient, RN notes reviewed, old records reviewed Mode of arrival: ambulatory Limitations: no limitations - History of Present Illness Initial Comments: This is a 68-year-old female the ER for evaluation. Patient presents today for evaluation regards to near syncopal event while working out at rehabilitation. Patient's going to rehab for left knee surgery. Patient has been doing well with rehab. Denying chest pain or shortness of breath. Patient initially will not and their concern for blood sugar. Patient to give her some juice and was in hydration and patient did have improvement. MD Complaint: almost passed out -: hour(s) Prodromal Symptoms: lightheaded Description of Event: other (none) -: second(s) Witnessed: yes - by bystander Injuries Sustained Associated with Event: None Current Symptoms: back to baseline Context: during exertion Treatments Prior to Arrival: none - Related Data Home Medications Medication Instructions Recorded Confirmed Aspirin 81 mg PO DAILY 11/12/16 08/29/18 Atorvastatin [Lipitor] 20 mg PO HS 11/12/16 08/29/18 Cetirizine HCl [Zyrtec] 10 mg PO DAILY 11/12/16 08/29/18 Diazepam [Valium] 2 mg PO HS 11/12/16 08/29/18 Levothyroxine Sodium [Synthroid] 137 mcg PO MOTUWETHFR 11/12/16 08/29/18 Levothyroxine Sodium [Synthroid] 150 mcg PO SUSA 11/12/16 08/29/18 Cholecalciferol [Vitamin D3] 5,000 unit PO DAILY 07/30/18 08/29/18 HYDROcodone/APAP 10-325MG [[place] 0.5 - 1 tab PO TID PRN 07/30/18 08/29/18 10-325] Lisinopril [Zestril] 5 mg PO DAILY 07/30/18 08/29/18 Previous Rx's Medication Instructions Recorded Sennosides-Docusate Sodium 1 tab PO BID #60 tablet 08/03/18 [Senokot-S] Allergies Allergy/AdvReac Type Severity Reaction Status Date / Time ibuprofen [From Motrin] Allergy Anaphylaxis Verified 08/29/18 12:52 Sulfa (Sulfonamide Allergy Swelling Verified 08/29/18 12:52 Antibiotics) Tetracyclines AdvReac Nausea & Verified 08/29/18 12:52 Vomiting PET SCAN DYE Allergy Rash/Hives Uncoded 08/29/18 12:55 Review of Systems ROS Statement: Those systems with pertinent positive or pertinent negative responses have been documented in the HPI. ROS Other: All systems not noted in ROS Statement are negative. Past Medical History Past Medical History: Asthma, Cancer, COPD, Hyperlipidemia, Hypertension, Osteoarthritis (OA), Thyroid Disorder Additional Past Medical History / Comment(s): Breast Cancer 2003, HAD RADIATION. LT EAR CADDO. GRAVES DISEASE. HX VERTIGO. LT KNEE PAIN. GETS MUSCLE SPASMS IN LEGS IN NOC. AB CAUSES YEAST INFECTIONS. History of Any Multi-Drug Resistant Organisms: None Reported Past Surgical History: Breast Surgery, Ear Surgery, Hysterectomy, Orthopedic Surgery, Tonsillectomy Additional Past Surgical History / Comment(s): Left Lumpectomy X2. LT EAR DRUM REPAIR. RT KNEE SCOPE. MULT EYE SURGERIES. EMERGENCY D&C.. L knee surgery Past Anesthesia/Blood Transfusion Reactions: Postoperative Nausea & Vomiting ( PONV) Past Psychological History: No Psychological Hx Reported Smoking Status: Former smoker Past Alcohol Use History: None Reported Past Drug Use History: None Reported - Past Family History Mother Family Medical History: Cancer Additional Family Medical History / Comment(s): STOMACH CA Sister(s) Family Medical History: Cancer Father Family Medical History: Unable to Obtain General Exam Limitations: no limitations General appearance: alert, in no apparent distress Head exam: Present: atraumatic, normocephalic, normal inspection Eye exam: Present: normal appearance, PERRL, EOMI. Absent: scleral icterus, conjunctival injection, periorbital swelling ENT exam: Present: normal exam, mucous membranes moist Neck exam: Present: normal inspection. Absent: tenderness, meningismus, lymphadenopathy Respiratory exam: Present: normal lung sounds bilaterally. Absent: respiratory distress, wheezes, rales, rhonchi, stridor Cardiovascular Exam: Present: regular rate, normal rhythm, normal heart sounds. Absent: systolic murmur, diastolic murmur, rubs, gallop, clicks GI/Abdominal exam: Present: soft, normal bowel sounds. Absent: distended, tenderness, guarding, rebound, rigid Extremities exam: Present: normal inspection, full ROM, normal capillary refill. Absent: tenderness, pedal edema, joint swelling, calf tenderness Back exam: Present: normal inspection Neurological exam: Present: alert, oriented X3, CN II-XII intact Psychiatric exam: Present: normal affect, normal mood Skin exam: Present: warm, dry, intact, normal color. Absent: rash Course Vital Signs 08/29/18 08/29/18 12:13 15:51 Temperature 98.1 F Pulse Rate 80 81 Respiratory 18 17 Rate Blood Pressure 148/83 138/78 O2 Sat by Pulse 100 96 Oximetry - Reevaluation(s) Reevaluation #1: 08/29/18 15:55 Medical record is reviewed Reevaluation #2: 08/29/18 15:55 Patient is completely asymptomatic Medical Decision Making - Medical Decision Making 68 female the ER for evaluation. Patient resents today for evaluation regards to near syncopal event while working out. Patient feels completely normal now. After hydration. Labwork is normal EKG negative. Patient will be discharged To continue physical therapy - Lab Data Result diagrams: 08/29/18 13:21 08/29/18 13:21 Lab Results 08/29/18 08/29/18 08/29/18 Range/Units 13:21 13:21 13:21 WBC 7.7 (3.8-10.6) k/uL RBC 4.52 (3.80-5.40) m/uL Hgb 13.7 (11.4-16.0) gm/dL Hct 39.5 (34.0-46.0) % MCV 87.3 (80.0-100.0) fL MCH 30.2 (25.0-35.0) pg MCHC 34.6 (31.0-37.0) g/dL RDW 14.1 (11.5-15.5) % Plt Count 324 (150-450) k/uL Neutrophils % 52 % Lymphocytes % 32 % Monocytes % 8 % Eosinophils % 6 % Basophils % 1 % Neutrophils # 4.0 (1.3-7.7) k/uL Lymphocytes # 2.4 (1.0-4.8) k/uL Monocytes # 0.6 (0-1.0) k/uL Eosinophils # 0.5 (0-0.7) k/uL Basophils # 0.1 (0-0.2) k/uL PT (9.0-12.0) sec INR (<1.2) APTT (22.0-30.0) sec Sodium 140 (137-145) mmol/L Potassium 4.3 (3.5-5.1) mmol/L Chloride 106 (98-107) mmol/L Carbon Dioxide 25 (22-30) mmol/L Anion Gap 9 mmol/L BUN 21 H (7-17) mg/dL Creatinine 0.69 (0.52-1.04) mg/dL Est GFR (CKD-EPI)AfAm >90 (>60 ml/min/1.73 sqM) Est GFR (CKD-EPI)NonAf 90 (>60 ml/min/1.73 sqM) Glucose 98 (74-99) mg/dL Plasma Lactic Acid [place] (0.7-2.0) mmol/L Calcium 10.1 (8.4-10.2) mg/dL Phosphorus 3.5 (2.5-4.5) mg/dL Magnesium 1.9 (1.6-2.3) mg/dL Total Bilirubin 0.4 (0.2-1.3) mg/dL AST 20 (14-36) U/L ALT 28 (9-52) U/L Alkaline Phosphatase 138 H (38-126) U/L Total Creatine Kinase 43 (30-135) U/L CK-MB (CK-2) <0.2 (0.0-2.4) ng/mL CK-MB (CK-2) Rel Index Troponin I <0.012 (0.000-0.034) ng/mL Total Protein 7.2 (6.3-8.2) g/dL Albumin 4.3 (3.5-5.0) g/dL Urine Color Urine Appearance (Clear) Urine pH (5.0-8.0) Ur Specific [place] (1.001-1.035) Urine Protein (Negative) Urine Glucose (UA) (Negative) Urine Ketones (Negative) Urine Blood (Negative) Urine Nitrite (Negative) Urine Bilirubin (Negative) Urine Urobilinogen (<2.0) mg/dL Ur Leukocyte Esterase (Negative) 08/29/18 08/29/18 08/29/18 Range/Units 13:21 13:21 13:21 WBC (3.8-10.6) k/uL RBC (3.80-5.40) m/uL Hgb (11.4-16.0) gm/dL Hct (34.0-46.0) % MCV (80.0-100.0) fL MCH (25.0-35.0) pg MCHC (31.0-37.0) g/dL RDW (11.5-15.5) % Plt Count (150-450) k/uL Neutrophils % % Lymphocytes % % Monocytes % % Eosinophils % % Basophils % % Neutrophils # (1.3-7.7) k/uL Lymphocytes # (1.0-4.8) k/uL Monocytes # (0-1.0) k/uL Eosinophils # (0-0.7) k/uL Basophils # (0-0.2) k/uL PT 10.1 (9.0-12.0) sec INR 0.9 (<1.2) APTT 24.3 (22.0-30.0) sec Sodium (137-145) mmol/L Potassium (3.5-5.1) mmol/L Chloride (98-107) mmol/L Carbon Dioxide (22-30) mmol/L Anion Gap mmol/L BUN (7-17) mg/dL Creatinine (0.52-1.04) mg/dL Est GFR (CKD-EPI)AfAm (>60 ml/min/1.73 sqM) Est GFR (CKD-EPI)NonAf (>60 ml/min/1.73 sqM) Glucose (74-99) mg/dL Plasma Lactic Acid [place] 1.4 (0.7-2.0) mmol/L Calcium (8.4-10.2) mg/dL Phosphorus (2.5-4.5) mg/dL Magnesium (1.6-2.3) mg/dL Total Bilirubin (0.2-1.3) mg/dL AST (14-36) U/L ALT (9-52) U/L Alkaline Phosphatase (38-126) U/L Total Creatine Kinase (30-135) U/L CK-MB (CK-2) (0.0-2.4) ng/mL CK-MB (CK-2) Rel Index Troponin I (0.000-0.034) ng/mL Total Protein (6.3-8.2) g/dL Albumin (3.5-5.0) g/dL Urine Color Yellow Urine Appearance Clear (Clear) Urine pH 8.0 (5.0-8.0) Ur Specific [place] 1.011 (1.001-1.035) Urine Protein Negative (Negative) Urine Glucose (UA) Negative (Negative) Urine Ketones Negative (Negative) Urine Blood Negative (Negative) Urine Nitrite Negative (Negative) Urine Bilirubin Negative (Negative) Urine Urobilinogen <2.0 (<2.0) mg/dL Ur Leukocyte Esterase Negative (Negative) - EKG Data -: EKG Interpreted by Me (EKG shows sinus rhythm rate of 79, W[place] 150, QRS 80, QTC 451) Disposition Clinical Impression: Near syncope, Vasovagal syncope Disposition: HOME SELF-CARE Condition: Good Instructions: Near Syncope (ED) Is patient prescribed a controlled substance at d/c from ED?: No Referrals: Jaciel Mathias MD [Primary Care Provider] - 1-2 days
[2018-08-29 13:52] LABS: Basophils # (A) 0.1 k/uL (0-0.2); Basophils % (A) 1 %; Eosinophils # (A) 0.5 k/uL (0-0.7); Eosinophils % (A) 6 %; HCT 39.5 % (34.0-46.0); HGB 13.7 gm/dL (11.4-16.0); Lymphocytes # (A) 2.4 k/uL (1.0-4.8); Lymphocytes % (A) 32 %; MCH 30.2 pg (25.0-35.0); MCHC 34.6 g/dL (31.0-37.0); MCV 87.3 fL (80.0-100.0); Monocytes # (A) 0.6 k/uL (0-1.0); Monocytes % (A) 8 %; Neutrophils % (A) 52 %; Platelet Count 324 k/uL (150-450); RBC 4.52 m/uL (3.80-5.40); RDW 14.1 % (11.5-15.5); WBC 7.7 k/uL (3.8-10.6)
[2018-08-29 13:55] LABS: Appearance,Urine Clear (Clear); Bilirubin,Urine Negative (Negative); Blood,Urine Negative (Negative); Color,Urine Yellow; Glucose,Urine (UA) Negative (Negative); Ketones,Urine Negative (Negative); Leukocyte Esterase,Urine Negative (Negative); Nitrite,Urine Negative (Negative); Protein,Urine Negative (Negative); Specific Gravity,Urine 1.011 (1.001-1.035); Urobilinogen,Urine <2.0 mg/dL (<2.0)
[2018-08-29 14:01] LABS: INR 0.9 (<1.2)
[2018-08-29 14:02] LABS: Partial Thromboplastin Time 24.3 sec (22.0-30.0); Prothrombin Time 10.1 sec (9.0-12.0)
[2018-08-29 14:08] LABS: Anion Gap 9 mmol/L; Carbon Dioxide 25 mmol/L (22-30); Chloride 106 mmol/L (98-107); Glucose 98 mg/dL (74-99); Potassium 4.3 mmol/L (3.5-5.1); Sodium 140 mmol/L (137-145)
[2018-08-29 14:09] LABS: ALT 28 U/L (9-52); AST 20 U/L (14-36); Albumin 4.3 g/dL (3.5-5.0); Alkaline Phosphatase 138 U/L (38-126); Blood Urea Nitrogen 21 mg/dL (7-17); Calcium 10.1 mg/dL (8.4-10.2); Magnesium 1.9 mg/dL (1.6-2.3); Phosphorus 3.5 mg/dL (2.5-4.5); Total Bilirubin 0.4 mg/dL (0.2-1.3); Total Protein 7.2 g/dL (6.3-8.2)
[2018-08-29 14:14] LABS: Creatine Kinase 43 U/L (30-135)
[2018-08-29 14:27] LABS: Creatine Kinase MB <0.2 ng/mL (0.0-2.4); Troponin I <0.012 ng/mL (0.000-0.034)
[2018-08-29 15:52] VITALS: BP 138/78; PULSE 81; RESP 17
== END 2018-08-29 15:55 | disposition home or self-care (01) ==
LOC: EC 12:07
DX: R55 Syncope and collapse (principal); R42 Dizziness and giddiness; E78.5 Hyperlipidemia, unspecified; I10 Essential (primary) hypertension; E07.9 Disorder of thyroid, unspecified; Z85.3 Personal history of malignant neoplasm of breast; Z87.891 Personal history of nicotine dependence; Z79.82 Long term (current) use of aspirin; Z79.890 Hormone replacement therapy; Z79.899 Other long term (current) drug therapy; Z88.6 Allergy status to analgesic agent; Z88.2 Allergy status to sulfonamides; Z88.1 Allergy status to other antibiotic agents; Z91.048 Other nonmedicinal substance allergy status
CPT/HCPCS: 36415; 80053; 81003; 82550; 82553; 83605; 83735; 84100; 84484; 85025; 85610; 85730; 87086; 93005; 96360; 99284

== ENCOUNTER → 2018-11-06 | Outpatient (CLI) | payer MEDICARE, OTHER ==
[2018-11-06 17:51] LABS: Albumin 4.6 g/dL (3.80-4.90); Albumin/Globulin Ratio 2.19 (1.60-3.17); Calcium 10.4 mg/dL (8.7-10.3); Globulin 2.1 g/dL (1.6-3.3); LDL Cholesterol,Calculated 70.2 mg/dL (0.0-131.0); Potassium 4.9 mmol/L (3.5-5.5); Total Bilirubin 0.4 mg/dL (0.2-1.2); Total Protein 6.7 g/dL (6.2-8.2); Uric Acid 4.7 mg/dL (2.9-7.7); VLDL Calculation 11.8 mg/dL (5.00-40.00)
== END | disposition home or self-care (01) ==
LOC: LABWHC1 08:12
PROVIDERS: ATTEND Internal Medicine Interventional Cardiology
DX: M10.9 Gout, unspecified (principal); E78.2 Mixed hyperlipidemia
CPT/HCPCS: 36415; 80053; 80061; 84550

== ENCOUNTER → 2019-04-29 | Outpatient (CLI) | payer MEDICARE, OTHER ==
[2019-04-29 11:14] LABS: Chol/HDL Ratio 2.56; LDL Cholesterol,Calculated 63.6 mg/dL (0.0-131.0); VLDL Calculation 31.4 mg/dL (5.00-40.00)
== END | disposition home or self-care (01) ==
LOC: LABWHC1 07:17
PROVIDERS: ATTEND Internal Medicine Interventional Cardiology
DX: E78.2 Mixed hyperlipidemia (principal)
CPT/HCPCS: 36415; 80061; 84450; 84460

== ENCOUNTER → 2019-07-04 | Outpatient (CLI) | payer MEDICARE, OTHER ==
--- NOTE | 2019-07-04 14:21 | MM ---
Reason for exam: additional evaluation requested from prior study. Last mammogram was performed 1 year and 1 month ago. History: Patient is postmenopausal, has history of breast cancer at age 53, and history of high-risk lesion on a previous biopsy. Family history of breast cancer in sister at age 57. Malignant stereotactic core biopsy of the left breast, January 02, 2004. Cyst aspiration of the left breast. Core biopsy of the left breast. Lumpectomy of the left breast. Radiation therapy of the left breast. Took hormonal contraceptives for 3 years beginning at age 24. Took estrogen for 8 years beginning at age 43. Took tamoxifen for 5 years beginning at age 54. Physical Findings: Nurse did not find any significant physical abnormalities on exam. MG 3D Diag Mammo W/Cad XENIA Bilateral CC and MLO view(s) were taken. Prior study comparison: June 11, 2018, bilateral MG 3d diag mammo w/cad XENIA. May 15, 2017, bilateral MG 3d diag mammo w/cad XENIA. The breast tissue is heterogeneously dense. This may lower the sensitivity of mammography. Stable benign calcifications and chronic nodularity. Stable lumpectomy changes left breast. No significant new findings when compared with previous films. These results were verbally communicated with the patient and result sheet given to the patient on 07/04/19. ASSESSMENT: Benign, BI-RAD 2 RECOMMENDATION: Follow-up diagnostic mammogram of both breasts in 1 year.
== END | disposition home or self-care (01) ==
LOC: RADMAMWWP 13:31
PROVIDERS: ATTEND Internal Medicine Hematology & Oncology
DX: Z08 Encounter for follow-up examination after completed treatment for malignant neoplasm (principal); Z85.3 Personal history of malignant neoplasm of breast
CPT/HCPCS: 77066; G0279; 77062

== ENCOUNTER → 2020-02-14 | Outpatient (CLI) | payer MEDICARE ==
[2020-02-14 15:35] LABS: African American GFR (CKD) 101.7 (60.0-200.0); Albumin 4.5 g/dL (3.80-4.90); Albumin/Globulin Ratio 1.96 (1.60-3.17); Anion Gap 5.3 mmol/L (4.00-12.00); BUN/Creat Ratio 25.71 Ratio (12.00-20.00); Calcium 9.7 mg/dL (8.7-10.3); Carbon Dioxide 26.7 mmol/L (21.6-31.8); Chol/HDL Ratio 2.38; Globulin 2.3 g/dL (1.6-3.3); LDL Cholesterol,Calculated 53.2 mg/dL (0.0-131.0); Non-African American GFR(CKD) 87.8 (60.0-200.0); Potassium 4.5 mmol/L (3.5-5.5); Total Bilirubin 0.6 mg/dL (0.3-1.2); Total Protein 6.8 g/dL (6.2-8.2); VLDL Calculation 18.8 mg/dL (5.00-40.00)
== END | disposition home or self-care (01) ==
LOC: LABWHC1 07:14
PROVIDERS: ATTEND Internal Medicine Interventional Cardiology
DX: E78.2 Mixed hyperlipidemia (principal)
CPT/HCPCS: 36415; 80053; 80061

== ENCOUNTER → 2020-07-02 | Outpatient (CLI) | payer MEDICARE ==
--- NOTE | 2020-07-02 14:23 | BD ---
EXAMINATION TYPE: Axial Bone Density DATE OF EXAM: 07/02/2020 COMPARISON: 06/11/2018 CLINICAL HISTORY: M 85.88 Height: 5 FT 6 1/2 IN Weight: 152 FRAX RISK QUESTIONS: Alcohol (3 or more units per day): NO Family History (Parent hip fracture): NO Glucocorticoids (More than 3mos): NO (Ex: prednisone, prednisolone, methylprednisolone, dexamethasone, and hydrocortisone). History of Fracture in Adulthood: YES Secondary Osteoporosis: 1. Type 1 Diabetes: NO 2. Hyperthyroidism: NO 3. Menopause before 45: YES 4. Malnutrition: NO 5. Chronic liver disease: NO Rheumatoid Arthritis: NO Current Tobacco Use: NO RISK FACTORS HISTORY OF: Family History of Osteoporosis: YES Active: YES Diet low in dairy products/other sources of calcium: NO Postmenopausal woman: TOTAL HYST AGE 43 Take estrogen and/or progesterone medications: TOOK HRT AGE 43 -51 NO LONGER TAKES Lost more than 2 inches in height since high school: NO MEDICATIONS: Thyroid Medications: YES Which medication: LEVOTHYROXINE How Lon PLUS YEARS Additional Medications: LEVOTHYROXINE, LISINOPRIL, ZYRTEC, DIAZAPAM, ATORVASTATIN Additional History: BREAST CANCER 2003 RADIATION EXAM MEASUREMENTS: Bone mineral densitometry was performed using the [employer]. Bone mineral density as measured about the Lumbar spine is: ----- L1-L4(G/cm2): 1.075 T Score Values are as follows: ----- L2: -1.0 ----- L3: -0.6 ----- L4: -0.5 ----- L1-L4: -0.9 Bone mineral density has: INCREASED 1.3 % since study of: 2017 Bone mineral density about the R hip (g/cm2): 0.710 Bone mineral density about the L hip (g/cm2): 0.703 T Score values are as follows: -----R Neck: -2.4 -----L Neck: -2.4 -----R Total: -2.3 -----L Total: -2.4 Bone mineral density has: DECREASED -9.6 % since study of: 2018 IMPRESSION: Osteopenia (T Score between -2.5 and -1). There is slightly increased risk of fracture and the patient may be considered for treatment. Re-Screen 2-5 years. NOTE: T-SCORE=SD OF THE YOUNG ADULT MEAN.
== END | disposition home or self-care (01) ==
LOC: RADBDWWP 10:31
PROVIDERS: ATTEND Internal Medicine Hematology & Oncology
DX: M85.80 Other specified disorders of bone density and structure, unspecified site (principal); D05.92 Unspecified type of carcinoma in situ of left breast; I10 Essential (primary) hypertension; J45.21 Mild intermittent asthma with (acute) exacerbation
CPT/HCPCS: 77080

== ENCOUNTER → 2020-07-06 | Outpatient (CLI) | payer MEDICARE ==
--- NOTE | 2020-07-06 11:42 | MM ---
Reason for exam: additional evaluation requested from prior study. Last mammogram was performed 1 year ago. History: Patient is postmenopausal, has history of breast cancer at age 53, and history of high-risk lesion on a previous biopsy. Family history of breast cancer in sister at age 57. Malignant stereotactic core biopsy of the left breast, January 02, 2004. Cyst aspiration of the left breast. Core biopsy of the left breast. Lumpectomy of the left breast. Radiation therapy of the left breast. Took hormonal contraceptives for 3 years beginning at age 24. Took estrogen for 8 years beginning at age 43. Took tamoxifen for 5 years beginning at age 54. Physical Findings: Nurse did not find any significant physical abnormalities on exam. MG 3D Diag Mammo W/Cad XENIA Bilateral CC and MLO view(s) were taken. Prior study comparison: July 04, 2019, bilateral MG 3d diag mammo w/cad XENIA. June 11, 2018, bilateral MG 3d diag mammo w/cad XENIA. The breast tissue is heterogeneously dense. This may lower the sensitivity of mammography. Finding #1: Skin thickening architectural distortion in the left breast. Finding #2: There are stable typically benign calcifications in both breasts. There is a chronic nodularity in the right breast. These results were verbally communicated with the patient and result sheet given to the patient on 07/06/20. ASSESSMENT: Benign, BI-RAD 2 RECOMMENDATION: Routine screening mammogram of both breasts in 1 year.
== END | disposition home or self-care (01) ==
LOC: RADMAMWWP 10:18
PROVIDERS: ATTEND Internal Medicine Hematology & Oncology
DX: Z08 Encounter for follow-up examination after completed treatment for malignant neoplasm (principal); Z85.3 Personal history of malignant neoplasm of breast
CPT/HCPCS: 77066; G0279; 77062

== ENCOUNTER → 2020-07-20 | Outpatient (CLI) | payer MEDICARE ==
[2020-07-20 08:39] VITALS: BP 143/84; PULSE 89; RESP 16; TEMP 97.5
--- NOTE | 2020-07-20 08:50 | P.PAINCN ---
History of Present Illness - Reason for Consult Consult date: 07/20/20 - History of Present Illness This is a 70-year-old patient referred by Dr. Wright with a chief complaint of chronic pain in neck into her left upper extremity. The pain started about 6 months ago with no inciting incident She complains of pain numbness and tingling that radiates from her neck into her left shoulder and left forearm. Notes that she is having worsening weakness in her left arm is having issues even moving her arm in general. Occasionally makes the pain better or any physical movement makes pain worse. Describes the pain is currently a 5 out of 10. Patient has been taking medications from primary care physician including [place] 10 TID and diazepam 2 mg BID with some relief. Has done PT in the past with no relief. She is allergic to NSAIDs. Notes she had some type of neck injection in the past about 78 years ago it helped significantly with her neck pain. Patient denies adverse drug effects from medications. Patient also denies new- onset weakness, bowel/bladder incontinence, or any other signs or symptoms of cauda equina syndrome. There are no signs of acute intoxication, and no indications of medication diversion or overuse. Patient notes that pain worsens significantly with [], and improves with [] In addition to above, 13-point review of systems is also negative for chest pain, shortness of breath, changes in vision, changes in hearing, new onset wea kness, abdominal pain, diarrhea, extreme fatigue, malaise, fever, skin changes, homicidal or suicidal ideation, or bowel or bladder incontinence. Physical exam: Vital Signs: Reviewed in EMR GENERAL: Well appearing, in no acute distress PSYCH: Mood and affect is appropriate. Awake, alert, and oriented SKIN: Skin color, texture, turgor normal, no rashes or lesions HEENT: Normocephalic, atraumatic. EOM intact CV: No pedal edema RESP: Respirations are unlabored, no audible wheezing GI: Abdomen non-distended MUSCULOSKELETAL: Decreased upper extremity strength on the left side with 3/5 shoulder abduction, shoulder adduction, elbow flexion. No atrophy or tone abnormalities are noted. Neck: pain to palpation over the cervical paraspinous muscles with multiple tender points present over the left rhomboid and levator scapulae area. Spurling positive left side, Axial Loading Test positive left side, Phelan's sign negative. Pain with neck extension. No obvious deformity or signs of trauma. Normal cervical lordotic curve and normal cervical spine range of motion She has significantly decreased shoulder ROM due to pain, only around 30 degrees forward flexion and 60 degrees abduction. rest of exam was limited due to pain. Gait: Gait is normal NEUR: Bilateral upper and lower extremity coordination and muscle stretch reflexes are physiologic and symmetric. Negative clonus. No loss of sensation is noted. Cranial nerves are grossly intact. Imaging: Cervical MRI C2-C3: No evidence for disc desiccation no stenosis and no foraminal stenosis. C3-C4: Posterior disc bulge is mild effacement of ventral thecal sac. No central canal stenosis or disc herniation. Foraminal are patent bilaterally C4-C5: Mild decreased signal and loss was compatible with degenerative disc disease. Posterior disc bulge and mild effacement of the ventral thecal sac. No evidence of stenosis or herniation C5-C6: Posterior disc bulge and mild effacement of the ventral thecal sac. No evidence of central canal stenosis or disc herniation. C6-C7: Posterior disc bulge with mild effacement of the ventral thecal sac. No evidence of canal stenosis or disc herniation. Mild bilateral neural foraminal encroachment. C7-T1. Patent overall. MRI of the left shoulder done [facility] dated 06/09/2020 shows degenerative changes of the labrum, glenohumeral and before meals joints. No significant subacromial bursitis. Rotator cuff shows age-appropriate degenerative changes. No fractures. Normal first medicine supraspinatus. Labrum normal. Muscle bulk is normal. Assessment: 1. Cervical radiculopathy Plan: 1. Explanation: Diagnoses, prognoses, and multiple treatment options including but not limited to physical therapy, interventional therapies, medication management and surgery were discussed with the patient and all questions were answered to the patient's satisfaction. 2. Investigations: None, consider EMG in the future if patient does not get benefit from epidural steroid injection 3. Counseling: The patient was counseled for 3 minutes on SMOKING CESSATION, BODY MASS INDEX, EXERCISE. Specifically, the patient was instructed regarding the importance of smoking cessation, weight control, and exercise in the context of both chronic pain and overall health. 4. Procedures: Proceed with left paramedian approach C7-T1 epidural steroid injection. These do not help, can consider trigger point injections in the cervical paraspinal/rhomboid area. 5. Consultations: Continue PT 6. Medications: from PCP, taking [place] 10 TID PRN and Diazepam 2 mg 7. Disposition: For procedure Past Medical History Past Medical History: Asthma, Cancer, COPD, Hearing Disorder / Deafness, Hyperlipidemia, Hypertension, Osteoarthritis (OA), Thyroid Disorder Additional Past Medical History / Comment(s): Breast Cancer 2003, HAD RADIATION. LT EAR CHEVAK. GRAVES DISEASE. HX VERTIGO. LT KNEE PAIN. GETS MUSCLE SPASMS IN LEGS IN NOC. AB CAUSES YEAST INFECTIONS. History of Any Multi-Drug Resistant Organisms: None Reported Past Surgical History: Breast Surgery, Ear Surgery, Hysterectomy, Joint Replacement, Orthopedic Surgery, Tonsillectomy Additional Past Surgical History / Comment(s): Left Lumpectomy X2. LT EAR DRUM REPAIR. RT KNEE SCOPE. MULT EYE SURGERIES. EMERGENCY D&C.. LT TKA, BILAT EYE SURGERIES R/T GRAVES DISEASE-HAS STENT IN RT EYE Past Anesthesia/Blood Transfusion Reactions: Postoperative Nausea & Vomiting (PONV) Smoking Status: Former smoker - Past Family History Mother Family Medical History: Cancer Additional Family Medical History / Comment(s): STOMACH CA Sister(s) Family Medical History: Cancer Father Family Medical History: Unable to Obtain Medications and Allergies Home Medications Medication Instructions Recorded Confirmed Type Aspirin 81 mg PO DAILY 11/12/16 07/20/20 History Atorvastatin [Lipitor] 20 mg PO HS 11/12/16 07/20/20 History Levothyroxine Sodium [Synthroid] 137 mcg PO MOTUWETHFR 11/12/16 07/20/20 History Levothyroxine Sodium [Synthroid] 150 mcg PO SUSA 11/12/16 07/20/20 History diazePAM [Valium] 2 mg PO HS 11/12/16 07/20/20 History HYDROcodone/APAP 10-325MG [[place] 0.5 - 1 tab PO TID PRN 07/30/18 07/20/20 History 10-325] lisinopriL [Zestril] 5 mg PO DAILY 07/30/18 07/20/20 History Sennosides-Docusate Sodium 1 tab PO BID #60 tablet 08/03/18 07/20/20 Rx [Senokot-S] Loratadine [Claritin] 10 mg PO DAILY 07/15/20 07/20/20 History Meclizine [Antivert] 25 mg PO BID 07/15/20 07/20/20 History Allergies Allergy/AdvReac Type Severity Reaction Status Date / Time ibuprofen [From Motrin] Allergy Anaphylaxis Verified 07/15/20 10:52 Sulfa (Sulfonamide Allergy Swelling Verified 07/15/20 10:52 Antibiotics) Tetracyclines AdvReac Nausea & Verified 07/15/20 10:52 Vomiting PET SCAN DYE Allergy Rash/Hives Uncoded 07/15/20 10:52 PQRS Measure Charge Sheet PQRS Narrative: Smoking Status Former smoker Pain Intensity [Neck] 3 Scale Used Numeric (1 - 10) Hx Alcohol Use (MH) No Home Medications: Ambulatory Orders Aspirin 81 mg PO DAILY 11/12/16 Atorvastatin [Lipitor] 20 mg PO HS 11/12/16 Levothyroxine Sodium [Synthroid] 137 mcg PO MOTUWETHFR 11/12/16 Levothyroxine Sodium [Synthroid] 150 mcg PO SUSA 11/12/16 diazePAM [Valium] 2 mg PO HS 11/12/16 HYDROcodone/APAP 10-325MG [[place] 10-325] 0.5 - 1 tab PO TID PRN 07/30/18 lisinopriL [Zestril] 5 mg PO DAILY 07/30/18 Sennosides-Docusate Sodium [Senokot-S] 1 tab PO BID #60 tablet 08/03/18 Loratadine [Claritin] 10 mg PO DAILY 07/15/20 Meclizine [Antivert] 25 mg PO BID 07/15/20
== END | disposition home or self-care (01) ==
LOC: PNWHC3 08:16
PROVIDERS: ATTEND Anesthesiology
DX: M54.12 Radiculopathy, cervical region (principal); J45.909 Unspecified asthma, uncomplicated; E78.5 Hyperlipidemia, unspecified; I10 Essential (primary) hypertension; M19.90 Unspecified osteoarthritis, unspecified site; E07.9 Disorder of thyroid, unspecified; Z79.891 Long term (current) use of opiate analgesic; Z79.899 Other long term (current) drug therapy; Z79.82 Long term (current) use of aspirin; Z79.890 Hormone replacement therapy; Z88.2 Allergy status to sulfonamides; Z88.5 Allergy status to narcotic agent; Z88.1 Allergy status to other antibiotic agents
CPT/HCPCS: 99211

== ENCOUNTER → 2020-08-04 | Day surgery (SDC) | payer MEDICARE ==
[2020-07-31 16:21] VITALS: BMI 24.5
[~2020-08-04] MED LIST changes: -ACETAMINOPHEN TAB 500 MG TAB PO ONE; -DEXAMETHASONE SOD PHOSPHATE 10 MG/ML 1 ML VIAL IV ONE; +DEXAMETHASONE SOD PHOSPHATE 10 MG/ML 1 ML VIAL ONE; +IV FLUID CONTINUATION 1,000 ML IV ONE; -LIDOCAINE 1% 20 ML VIAL (10MG/ML) FOR IV START INTRADERMA PRN; -MIDAZOLAM (PF) 2 MG/2 ML VIAL IV PRN; +MIDAZOLAM 2 MG/2 ML VIAL ONE; -ONDANSETRON 4 MG/2 ML VIAL IVP ONE; -TRANEXAMIC ACID 1,000 MG in SODIUM CHLORIDE 0.9% 50 ML IVPB ONE; -ceFAZolin IN SWFI 2 GM/20 ML SYRINGE IVP ONE; -fentaNYL (PF) 50 MCG/ML 2 ML AMP IV PRN; +fentaNYL (PF) 50 MCG/ML 2 ML AMP ONE
[2020-08-04 09:52] VITALS: RESP 16; TEMP 97.8
[2020-08-04] MEDS: LACTATED RINGERS 1,000 ML IV SCH ×2 (10:02→10:07)
--- NOTE | 2020-08-04 10:22 | P.PCN ---
Date of Procedure: 08/04/20 Surgeon: Iron Rodriguez Pathology: none sent Condition: stable Disposition: PACU Description of Procedure: PROCEDURE 1. Cervical epidural steroid injection under fluoroscopic guidance, C7-T1 left paramedian approach. PREOPERATIVE DIAGNOSIS: Cervical radiculopathy, cervical spondylosis without myelopathy POSTOPERATIVE DIAGNOSIS: : Same as above ANESTHESIA: Local anesthesia with 1% lidocaine and IV moderate conscious sedation with Versed and Fentanyl . Isovue was not used today due to the patient's severe ALLERGY to IVP contrast dye. EBL 0 PROCEDURE INDICATION: The patient with neck pain and radiculopathy unresponsive to conservative treatment consents for procedure. PROCEDURE DESCRIPTION / TECHNIQUE: The patient was seen and identified in the preoperative area. Risks, benefits, complications, including but not limited to infections ,bleeding , allergic reactions to the medications ,and not complete pain relief, and alternatives were discussed with the patient, the patient agreed to proceed with the procedure and signed the consent. Patient was taken to the OR and time out was completed. The patient was placed in the prone position on the procedure table. A pillow was placed under the patients chest to increase the flexion of the cervical spine . The cervical area was prepped and draped in the usual sterile fashion. Vital signs were closely monitored during the procedure. Conscious sedation was used during the procedure to decrease patients anxiety. Using anterior-posterior fluoroscopy, the C7-T1 interlaminar space was i dentified and the skin over this site was marked and then infiltrated with 1% lidocaine subcutaneously. Subsequently, a 20-gauge 3-1/2-inch Tuohy epidural needle was inserted and advanced toward the epidural space by means of loss of resistance to air technique and guided by AP and lateral fluoroscopy. The needle tip contacted the lamina of T1 vertebra first, then it was walked off bone and into the epidural space using the loss of resistance to air and fluoroscopic guidance to identify the epidural space. , after negative aspiration for blood and CSF and in the absence of paresthesias. Again after negative aspiration, 20 mg of Decadron was injected . Needle was withdrawn intact, skin was cleansed, and bandages were applied. A copy of the needle placement picture was saved to the fluoroscopy machine.
--- NOTE | 2020-08-04 10:33 | FL ---
EXAMINATION TYPE: FL guided pain mgmt statistic DATE OF EXAM: 08/04/2020 HISTORY: Fluoroscopy time 3 seconds of fluoroscopy provided. IMPRESSION: 1. Fluoroscopy time.
[2020-08-04 10:44] VITALS: BP 151/74; PULSE 70
== END ==
LOC: ORPAIN 09:23
PROVIDERS: ATTEND Anesthesiology
DX: M47.22 Other spondylosis with radiculopathy, cervical region (principal); Z91.041 Radiographic dye allergy status; Z79.82 Long term (current) use of aspirin; Z88.2 Allergy status to sulfonamides; Z88.1 Allergy status to other antibiotic agents; Z88.6 Allergy status to analgesic agent
CPT/HCPCS: 62321; J2250; J1100; J3010

== ENCOUNTER → 2020-09-07 | Outpatient (CLI) | payer MEDICARE ==
[2020-09-07 12:43] VITALS: BP 138/84; PULSE 78; RESP 18; TEMP 97.7
--- NOTE | 2020-09-07 13:12 | P.PAINPG ---
Subjective Progress Note Date: 09/07/20 This is a 70-year-old patient returning for follow-up visit status post cervical epidural steroid injection at the C7-T1 level. She had at good relief with the initial injection reducing pain down her left arm she still has complaints of muscular skeletal pain in her trapezius and cervical paraspinal muscles bilaterally. She is requesting repeat epidural steroid injection as well as trigger point injections. VAS today ranged from 2-6 out of 10 in severity depending on activity level. Scars as a throbbing aching pain in her trapezius muscles and along her cervical paraspinal muscles. She also complaining of pain radiating into her left shoulder and into the medial aspect of her arm on the left. Denies any balance or gait abnormalities. Patient has been taking medications from primary care physician including [place] 10 TID and diazepam 2 mg BID with some relief. Has done PT in the past with no relief. She is allergic to NSAIDs. Patient denies adverse drug effects from medications. Patient also denies new-onset weakness, bowel/bladder incontinence, or any other signs or symptoms of cauda equina syndrome. There are no signs of acute intoxication, and no indications of medication diversion or overuse. Past medical, surgical, social histories are unchanged. In addition to above, 13-point review of systems is also negative for chest pain, shortness of breath, changes in vision, changes in hearing, new onset weakness, abdominal pain, diarrhea, extreme fatigue, malaise, fever, skin changes, homicidal or suicidal ideation, or bowel or bladder incontinence. Physical exam: Vital Signs: Reviewed in EMR GENERAL: Well appearing, in no acute distress PSYCH: Mood and affect is appropriate. Awake, alert, and oriented SKIN: Skin color, texture, turgor normal, no rashes or lesions HEENT: Normocephalic, atraumatic. EOM intact CV: No pedal edema RESP: Respirations are unlabored, no audible wheezing GI: Abdomen non-distended MUSCULOSKELETAL: Decreased upper extremity strength on the left side with 3/5 shoulder abduction, shoulder adduction, elbow flexion. No atrophy or tone abnormalities are noted. Neck: pain to palpation over the cervical paraspinous muscles with multiple tender points present over the left rhomboid and levator scapulae area, and tr apezius. Spurling positive left side, Axial Loading Test positive left side, Phelan's sign negative. Pain with neck extension. No obvious deformity or signs of trauma. Normal cervical lordotic curve and normal cervical spine range of motion She has significantly decreased shoulder ROM due to pain, only around 30 degrees forward flexion and 60 degrees abduction. rest of exam was limited due to pain. Gait: Gait is normal NEUR: Bilateral upper and lower extremity coordination and muscle stretch reflexes are physiologic and symmetric. Negative clonus. No loss of sensation is noted. Cranial nerves are grossly intact. Imaging: Cervical MRI C2-C3: No evidence for disc desiccation no stenosis and no foraminal stenosis. C3-C4: Posterior disc bulge is mild effacement of ventral thecal sac. No central canal stenosis or disc herniation. Foraminal are patent bilaterally C4-C5: Mild decreased signal and loss was compatible with degenerative disc disease. Posterior disc bulge and mild effacement of the ventral thecal sac. No evidence of stenosis or herniation C5-C6: Posterior disc bulge and mild effacement of the ventral thecal sac. No evidence of central canal stenosis or disc herniation. C6-C7: Posterior disc bulge with mild effacement of the ventral thecal sac. No evidence of canal stenosis or disc herniation. Mild bilateral neural foraminal encroachment. C7-T1. Patent overall. MRI of the left shoulder done [facility] dated 06/09/2020 shows degenerative changes of the labrum, glenohumeral and before meals joints. No significant subacromial bursitis. Rotator cuff shows age-appropriate degenerative changes. No fractures. Normal first medicine supraspinatus. Labrum normal. Muscle bulk is normal. Assessment: 1. Cervical radiculopathy 2. Myofascial pain of the cervical paraspinal muscles Plan: 1. Explanation: Diagnoses, prognoses, and multiple treatment options including but not limited to physical therapy, interventional therapies, medication management and surgery were discussed with the patient and all questions were answered to the patient's satisfaction. 2. Investigations: None at the moment 3. Counseling: The patient was counseled for 3 minutes on SMOKING CESSATION, BODY MASS INDEX, EXERCISE. Specifically, the patient was instructed regarding the importance of smoking cessation, weight control, and exercise in the context of both chronic pain and overall health. 4. Procedures: Proceed with left paramedian approach C7-T1 epidural steroid injection as well as trigger point injections as indicated on the day of the procedure.. 5. Consultations: Continue PT 6. Medications: from PCP, taking [place] 10 TID PRN and Diazepam 2 mg 7. Disposition: For procedure Objective - Vital Signs Vital signs: Vital Signs Temp 97.7 F 09/07/20 12:40 Pulse 78 09/07/20 12:40 Resp 18 09/07/20 12:40 BP 138/84 09/07/20 12:40 Pulse Ox 99 09/07/20 12:40 PQRS Measure Charge Sheet PQRS Narrative: Smoking Status Former smoker Blood Pressure 138/84 Pain Intensity [Neck] 2 Scale Used Numeric (1 - 10) Hx Alcohol Use (MH) No Home Medications: Ambulatory Orders Aspirin 81 mg PO DAILY 11/12/16 Atorvastatin [Lipitor] 20 mg PO HS 11/12/16 Levothyroxine Sodium [Synthroid] 137 mcg PO MOTUWETHFR 11/12/16 Levothyroxine Sodium [Synthroid] 150 mcg PO SUSA 11/12/16 diazePAM [Valium] 2 mg PO HS 11/12/16 HYDROcodone/APAP 10-325MG [[place] 10-325] 0.5 - 1 tab PO TID PRN 07/30/18 lisinopriL [Zestril] 5 mg PO DAILY 07/30/18 Loratadine [Claritin] 10 mg PO DAILY 07/15/20 Meclizine [Antivert] 25 mg PO DAILY 07/15/20 Sennosides-Docusate Sodium [Senokot-S] 1 tab PO DAILY 07/31/20 Cholecalciferol (Vitamin D3) [Vitamin D3 (5000 units)] 125 mcg PO DAILY 09/01/20 Controlled Substance Measures - Controlled Substance Measures Is patient prescribed a controlled substance at discharge?: No
== END | disposition home or self-care (01) ==
LOC: PNWHC3 12:29
PROVIDERS: ATTEND Anesthesiology
DX: M54.12 Radiculopathy, cervical region (principal); M79.18 Myalgia, other site; Z79.82 Long term (current) use of aspirin; Z79.899 Other long term (current) drug therapy; Z79.890 Hormone replacement therapy
CPT/HCPCS: 99211

== ENCOUNTER → 2020-09-17 | Outpatient (CLI) | payer MEDICARE ==
[2020-09-17 16:56] LABS: African American GFR (CKD) 101.7 (60.0-200.0); Albumin 4.5 g/dL (3.80-4.90); Albumin/Globulin Ratio 2.65 (1.60-3.17); Anion Gap 7.3 mmol/L (4.00-12.00); BUN/Creat Ratio 34.29 Ratio (12.00-20.00); Calcium 9.6 mg/dL (8.7-10.3); Carbon Dioxide 27.7 mmol/L (21.6-31.8); Chol/HDL Ratio 2.15; Globulin 1.7 g/dL (1.6-3.3); LDL Cholesterol,Calculated 55.6 mg/dL (0.0-131.0); Non-African American GFR(CKD) 87.8 (60.0-200.0); Total Bilirubin 0.5 mg/dL (0.2-1.2); Total Protein 6.2 g/dL (6.2-8.2); VLDL Calculation 22.4 mg/dL (5.00-40.00)
== END | disposition home or self-care (01) ==
LOC: LABWHC1 07:41
PROVIDERS: ATTEND Nurse Practitioner Adult Health
DX: I10 Essential (primary) hypertension (principal); E78.2 Mixed hyperlipidemia
CPT/HCPCS: 36415; 80053; 80061

== ENCOUNTER 2020-09-29 08:43 | Day surgery (SDC) | payer MEDICARE ==
[2020-09-25 14:51] VITALS: BMI 24.2
[~2020-09-29 08:43] MED LIST changes: -DEXAMETHASONE SOD PHOSPHATE 10 MG/ML 1 ML VIAL ONE; -IV FLUID CONTINUATION 1,000 ML IV ONE; +LACTATED RINGERS 1,000 ML IV SCH; -MIDAZOLAM 2 MG/2 ML VIAL ONE; -fentaNYL (PF) 50 MCG/ML 2 ML AMP ONE
[2020-09-29] MEDS ORDERED: LIDOCAINE 1% (10MG/ML) FOR IV START INTRADERMA ONE (09:34)
[2020-09-29 09:37] VITALS: RESP 16; TEMP 97.2
[2020-09-29] MEDS ORDERED: fentaNYL (PF) 50 MCG/ML 2 ML AMP ONE (09:40)
[2020-09-29] MEDS ORDERED: MIDAZOLAM 2 MG/2 ML VIAL ONE (09:40)
[2020-09-29] MEDS ORDERED: ROPIVACAINE 5MG/ML 20ML VIAL ONE (09:40)
[2020-09-29] MEDS ORDERED: DEXAMETHASONE SOD PHOSPHATE 10 MG/ML 1 ML VIAL ONE (09:40)
--- NOTE | 2020-09-29 10:02 | P.PCN ---
Date of Procedure: 09/29/20 Procedure(s) Performed: . PROCEDURE 1. Cervical epidural steroid injection under fluoroscopic guidance, C7-T1 (fluoroscopy images available in the radiology department ) 2. Trigger point injections cervical paraspinal muscles, trapezius muscles , rhomboid muscles , bilaterally, total of 6 trigger point injected, 3 on the right side and 3 on the left side. PREOPERATIVE DIAGNOSIS: 1- Cervical Degenerative Disc Diseases 2- Cervical radiculopathy., 3-myofascial pain syndrome and cervical area POSTOPERATIVE DIAGNOSIS: : 1- Cervical Degenerative Disc Diseases , 2- Cervical radiculopathy. 3-myofascial pain syndrome and cervical area ANESTHESIA: Local anesthesia with lidocaine 1 % , and moderate sedation, with Versed 2 mg, and Fentanyl 50 mcg. EBL 0 PROCEDURE INDICATION: The patient with neck pain and radiculitis unresponsive to conservative treatment consents for procedure. PROCEDURE DESCRIPTION / TECHNIQUE: The patient was seen and identified in the preoperative area. Risks, benefits, complications, including but not limited to infections ,bleeding , allergic reactions to the medications ,and not complete pain releife, and alternatives were discussed with the patient, the patient agreed to proceed with the procedure and signed the consent. Patient was taken to the OR and time out was completed. The patient was placed in the prone position on the procedure table. A pillow was placed under the patients chest to increase the cervical interlaminar space. The cervical area was prepped and draped in the usual sterile fashion. Vital signs were closely monitored during the procedure. Conscious sedation was used during the procedure to decrease patients anxiety. Using anterior-posterior fluoroscopy, the C7-T1 interlaminar space was identified and the skin over this site was marked and then infiltrated with 1% lidocaine subcutaneously. Subsequently, a 20-gauge 3-1/2-inch Tuohy epidural needle was inserted and advanced toward the epidural space by means of the ``hanging-drop technique and guided by AP and lateral fluoroscopy. The correct needle position in the epidural space then , after negative aspiration for blood and CSF and in the absence of paresthesias. Again after negative aspiration, mixture containing 20 mg Dexamethasone and 2 ml of preservative-free normal saline . Needle was withdrawn intact, Then the trigger point injection done under sterile technique, using 25-gauge needle, total of 6 trigger point identified in the cervical paraspinal muscles ,and rhomboid muscles and trapezius muscles ,bilaterally, 3 on the right side and 3 on the left side each one of them injected with ropivacaine 0.5% 2 mL dictated at each trigger point after negative aspiration, and there was no paresthesia during the injections, Complications= none. Disposition= patient was placed in supine position and transferred to the [facility] room area in stable condition and there was no evidence of upper or lower extremity motor or sensory deficit after the procedure patient was discharged from recovery room after discharge criteria met and home discharge instructions was given by the staff and patient will follow with the pain clinic in 2-4 weeks note = Isovue was not injected because patient had ALLERGY to IVP dye
[2020-09-29] MEDS ORDERED: IV FLUID CONTINUATION 600 ML IV ONE (10:05)
[2020-09-29 10:51] VITALS: BP 131/82; PULSE 69
--- NOTE | 2020-09-29 14:22 | FL ---
EXAMINATION TYPE: FL guided pain mgmt statistic DATE OF EXAM: 09/29/2020 HISTORY: Fluoroscopy time 4 seconds of fluoroscopy provided. IMPRESSION: 1. Fluoroscopy time.
== END 2020-09-29 10:55 | disposition home or self-care (01) ==
LOC: ORPAIN 08:43
PROVIDERS: ATTEND Specialist
DX: M50.10 Cervical disc disorder with radiculopathy, unspecified cervical region (principal); M79.18 Myalgia, other site; Z91.041 Radiographic dye allergy status; Z79.82 Long term (current) use of aspirin
CPT/HCPCS: 20553; 62321; J2250; J1100; J3010; J2795

== ENCOUNTER → 2020-10-21 | Outpatient (CLI) | payer MEDICARE ==
--- NOTE | 2020-10-21 13:27 | P.PAINPG ---
Subjective Progress Note Date: 10/21/20 This is a 70-year-old patient returning for follow-up visit status post cervical epidural steroid injection at the C7-T1 level and bilateral TP injections in the cervical paraspinal area. With her last BRIAN she had good relief in terms of her left arm pain but was complaining of musculoskeletal pain in her muscles in the back. With this repeat injection she no longer has pain in her right side however she is now having pain in the middle of her shoulder blades that started 3 weeks ago. She also has some pain in one specific spot over her left neck area. Currently doing physical therapy. Patient has been taking medications from primary care physician including Hildebran 10 TID and diazepam 2 mg BID with some relief. She is allergic to NSAIDs. Patient denies adverse drug effects from medications. Patient also denies new- onset weakness, bowel/bladder incontinence, or any other signs or symptoms of cauda equina syndrome. There are no signs of acute intoxication, and no indications of medication diversion or overuse. Past medical, surgical, social histories are unchanged. In addition to above, 13-point review of systems is also negative for chest pain, shortness of breath, changes in vision, changes in hearing, new onset weakness, abdominal pain, diarrhea, extreme fatigue, malaise, fever, skin changes, homicidal or suicidal ideation, or bowel or bladder incontinence. Physical exam: Vital Signs: Reviewed in EMR GENERAL: Well appearing, in no acute distress PSYCH: Mood and affect is appropriate. Awake, alert, and oriented SKIN: Skin color, texture, turgor normal, no rashes or lesions HEENT: Normocephalic, atraumatic. EOM intact CV: No pedal edema RESP: Respirations are unlabored, no audible wheezing GI: Abdomen non-distended MUSCULOSKELETAL: Decreased upper extremity strength on the left side with 3/5 shoulder abduction, shoulder adduction, elbow flexion. No atrophy or tone abnormalities are noted. Neck: pain to palpation over the cervical paraspinous muscles with multiple tender points present over the left rhomboid and levator scapulae area, and trapezius. Spurling positive left side, Axial Loading Test positive left side, Phelan's sign negative. Pain with neck extension. No obvious deformity or signs of trauma. Normal cervical lordotic curve and normal cervical spine range of motion trigger point present over mid right shoulder blade in region of scapulothoracic bursa She has significantly decreased shoulder ROM due to pain, only around 30 degrees forward flexion and 60 degrees abduction. rest of exam was limited due to pain. Gait: Gait is normal NEUR: Bilateral upper and lower extremity coordination and muscle stretch reflexes are physiologic and symmetric. Negative clonus. No loss of sensation is noted. Cranial nerves are grossly intact. Imaging: Cervical MRI C2-C3: No evidence for disc desiccation no stenosis and no foraminal stenosis. C3-C4: Posterior disc bulge is mild effacement of ventral thecal sac. No central canal stenosis or disc herniation. Foraminal are patent bilaterally C4-C5: Mild decreased signal and loss was compatible with degenerative disc disease. Posterior disc bulge and mild effacement of the ventral thecal sac. No evidence of stenosis or herniation C5-C6: Posterior disc bulge and mild effacement of the ventral thecal sac. No evidence of central canal stenosis or disc herniation. C6-C7: Posterior disc bulge with mild effacement of the ventral thecal sac. No evidence of canal stenosis or disc herniation. Mild bilateral neural foraminal encroachment. C7-T1. Patent overall. MRI of the left shoulder done [facility] dated 06/09/2020 shows degenerative changes of the labrum, glenohumeral and before meals joints. No significant subacromial bursitis. Rotator cuff shows age-appropriate degenerative changes. No fractures. Normal first medicine supraspinatus. Labrum normal. Muscle bulk is normal. Assessment: 1. Cervical radiculopathy 2. Myofascial pain of the cervical paraspinal muscles and thoracic paraspinal muscles Plan: 1. Explanation: Diagnoses, prognoses, and multiple treatment options including but not limited to physical therapy, interventional therapies, medication management and surgery were discussed with the patient and all questions were answered to the patient's satisfaction. 2. Investigations: I'll order a thoracic MRI without contrast for her. It does seem like she is having myofascial pain of the thoracic area. However she does note that occasionally her pain radiates from her back to her flank and breast area. Possibility is she has some type of thoracic disc herniation and we can explore this further with MRI 3. Counseling: The patient was counseled for 3 minutes on SMOKING CESSATION, BODY MASS INDEX, EXERCISE. Specifically, the patient was instructed regarding the importance of smoking cessation, weight control, and exercise in the context of both chronic pain and overall health. 4. Procedures: We will do right thoracic parapsinal muscle TP (focus on right scapulothoracic bursa) and left cervical paraspinal and rhomboid TP injections 5. Consultations: Continue PT 6. Medications: from PCP, taking Hildebran 10 TID PRN and Diazepam 2 mg 7. Disposition: For procedure Objective - Vital Signs Vital signs: Intake & Output 10/19/20 10/20/20 10/20/20 18:59 06:59 18:59 Weight 68.039 kg PQRS Measure Charge Sheet PQRS Narrative: Smoking Status Former smoker Pain Intensity [Left Neck] 2 Scale Used Numeric (1 - 10) Hx Alcohol Use (MH) No Home Medications: Ambulatory Orders Aspirin 81 mg PO DAILY 11/12/16 Atorvastatin [Lipitor] 20 mg PO HS 11/12/16 Levothyroxine Sodium [Synthroid] 137 mcg PO MOTUWETHFR 11/12/16 Levothyroxine Sodium [Synthroid] 150 mcg PO SUSA 11/12/16 diazePAM [Valium] 2 mg PO HS 11/12/16 HYDROcodone/APAP 10-325MG [Hildebran 10-325] 0.5 - 1 tab PO TID PRN 07/30/18 lisinopriL [Zestril] 5 mg PO DAILY 07/30/18 Loratadine [Claritin] 10 mg PO DAILY 07/15/20 Meclizine [Antivert] 25 mg PO DAILY 07/15/20 Sennosides-Docusate Sodium [Senokot-S] 1 tab PO DAILY 07/31/20 Cholecalciferol (Vitamin D3) [Vitamin D3 (5000 units)] 125 mcg PO DAILY 09/01/20 Controlled Substance Measures - Controlled Substance Measures Is patient prescribed a controlled substance at discharge?: No
== END ==
CPT/HCPCS: 99211

== ENCOUNTER → 2020-11-05 | Outpatient (CLI) | payer MEDICARE ==
--- NOTE | 2020-11-06 06:56 | MR ---
EXAMINATION TYPE: MR thoracic spine wo con DATE OF EXAM: 11/05/2020 COMPARISON: NONE HISTORY: Thoracic pain radiating to back for a few months. TECHNIQUE: Multiplanar, multisequence imaging of thoracic spine is performed without contrast FINDINGS: Spinal cord shows normal course, caliber, and signal as it courses the thoracic spine. Pascual tebral body heights and alignment are satisfactory. Bone marrow signal intensity is fairly well maint ained. Mild multilevel anterior spurring. Scattered hemangiomas, largest involves the T2 vertebra sag ittal image for reference. Review of the axial images shows tiny central disc protrusion minimally effacing anterior thecal sac at T6-T7 level correlating with sagittal image 8, some heterogeneous Modic type I endplate changes an teriorly are present at this level. There is additional tiny right paracentral disc protrusion minim ally effacing the anterior thecal sac at T11-T12 level axial image 5 corresponding to sagittal image 8. Visualized upper abdomen and thorax appear unremarkable. IMPRESSION: Mild multilevel degenerative changes as detailed above.
== END ==
LOC: RADMRIMAIN 16:24
PROVIDERS: ATTEND Anesthesiology
DX: M51.14 Intervertebral disc disorders with radiculopathy, thoracic region (principal)
CPT/HCPCS: 72146

== ENCOUNTER → 2020-11-17 | Day surgery (SDC) | payer MEDICARE ==
[2020-11-13 12:16] VITALS: BMI 24.5
[~2020-11-17] MED LIST changes: +ROPIVACAINE 5MG/ML 20ML VIAL ONE; +TRIAMCINOLONE ACETONIDE 40 MG/ML 1 ML VIAL ONE
[2020-11-17 09:02] VITALS: RESP 16; TEMP 96.7
--- NOTE | 2020-11-17 09:39 | P.PCN ---
Date of Procedure: 11/17/20 Anesthesia: none Surgeon: Iron Rodriguez Pathology: none sent Condition: stable Disposition: PACU Description of Procedure: Postoperative diagnosis: Myofascial pain Procedure trigger point injection in the right trapezius muscle, right rhomboid, and left trapezius muscle Procedure the patient was brought into the procedure room and placed in the sitting position. Skin was prepped with ChloraPrep at the previously marked trigger points. I then used 25-gauge 1-1/2 inch needle to go through the skin and into the muscles mentioned above I injected 1 mL of a solution made up of 3 MLS of ropivacaine 0.5% +20 mg of Kenalog. The patient tolerated procedure well. She was discharged home in stable condition. The patient will follow up with our clinic as needed.
[2020-11-17 09:45] VITALS: BP 116/71; PULSE 73
== END ==
LOC: ORPAIN 08:52
PROVIDERS: ATTEND Anesthesiology
DX: M79.18 Myalgia, other site (principal); I10 Essential (primary) hypertension; Z79.82 Long term (current) use of aspirin
CPT/HCPCS: 20553; J3301; J2795

== ENCOUNTER → 2021-02-12 | Outpatient (CLI) | payer MEDICARE ==
[2021-02-12 20:18] LABS: C Reactive Protein 1.5 mg/dL (0.0-0.8); Non-African American GFR(CKD) 74.2 (60.0-200.0); Uric Acid 4.8 mg/dL (2.9-7.7)
== END | disposition home or self-care (01) ==
LOC: LABWHC1 10:41
PROVIDERS: ATTEND Podiatrist
DX: D49.9 Neoplasm of unspecified behavior of unspecified site (principal); M10.9 Gout, unspecified
CPT/HCPCS: 36415; 82565; 84075; 84100; 84450; 84460; 84520; 84550; 85652; 86140

== ENCOUNTER → 2021-03-01 | Outpatient (CLI) | payer MEDICARE ==
[2021-03-01 14:42] LABS: Albumin 4.5 g/dL (3.80-4.90); Albumin/Globulin Ratio 1.88 (1.60-3.17); BUN/Creat Ratio 25.71 Ratio (12.00-20.00); Calcium 9.5 mg/dL (8.7-10.3); Chol/HDL Ratio 2.52; Globulin 2.4 g/dL (1.6-3.3); LDL Cholesterol,Calculated 65.4 mg/dL (0.0-131.0); Non-African American GFR(CKD) 87.2 (60.0-200.0); Potassium 4.3 mmol/L (3.5-5.5); Total Bilirubin 0.7 mg/dL (0.2-1.2); Total Protein 6.9 g/dL (6.2-8.2); VLDL Calculation 27.6 mg/dL (5.00-40.00)
== END | disposition home or self-care (01) ==
LOC: LABWHC1 08:32
PROVIDERS: ATTEND Internal Medicine Interventional Cardiology
DX: E78.2 Mixed hyperlipidemia (principal)
CPT/HCPCS: 36415; 80053; 80061

== ENCOUNTER → 2021-03-04 | Outpatient (CLI) | payer MEDICARE ==
[2021-03-05 04:31] LABS: Non-African American GFR(CKD) 87.2 (60.0-200.0); Uric Acid 2.6 mg/dL (2.9-7.7)
== END | disposition home or self-care (01) ==
LOC: LABWHC1 10:45
PROVIDERS: ATTEND Podiatrist
DX: M10.9 Gout, unspecified (principal)
CPT/HCPCS: 36415; 82565; 84450; 84460; 84520; 84550

== ENCOUNTER → 2021-03-23 | Outpatient (CLI) | payer MEDICARE ==
[2021-03-23 22:35] LABS: Non-African American GFR(CKD) 87.2 (60.0-200.0); Uric Acid 4.2 mg/dL (2.9-7.7)
== END | disposition home or self-care (01) ==
LOC: LABWHC1 11:54
PROVIDERS: ATTEND Podiatrist
DX: M10.9 Gout, unspecified (principal)
CPT/HCPCS: 36415; 82565; 84450; 84460; 84520; 84550

== ENCOUNTER → 2021-04-21 | Outpatient (CLI) | payer MEDICARE ==
[2021-04-22 08:40] LABS: Non-African American GFR(CKD) 87.2 (60.0-200.0)
== END | disposition home or self-care (01) ==
LOC: LABWHC1 12:32
PROVIDERS: ATTEND Podiatrist
DX: M10.9 Gout, unspecified (principal)
CPT/HCPCS: 36415; 82565; 84450; 84460; 84520; 84550

== ENCOUNTER → 2021-06-23 | Outpatient (CLI) | payer MEDICARE ==
[2021-06-23 18:46] LABS: Non-African American GFR(CKD) 87.2 (60.0-200.0); Uric Acid 3.4 mg/dL (2.9-7.7)
== END | disposition home or self-care (01) ==
LOC: LABWHC1 09:44
PROVIDERS: ATTEND Podiatrist
DX: M10.9 Gout, unspecified (principal)
CPT/HCPCS: 36415; 82565; 84450; 84460; 84520; 84550

== ENCOUNTER → 2021-07-07 | Outpatient (CLI) | payer MEDICARE ==
--- NOTE | 2021-07-08 11:54 | MM ---
Reason for exam: screening (asymptomatic). Last mammogram was performed 1 year ago. History: Patient is postmenopausal, has history of breast cancer at age 53, and history of high-risk lesion on a previous biopsy. Family history of breast cancer in sister at age 57. Malignant stereotactic core biopsy of the left breast, January 02, 2004. Cyst aspiration of the left breast. Core biopsy of the left breast. Lumpectomy of the left breast. Radiation therapy of the left breast. Took hormonal contraceptives for 3 years beginning at age 24. Took estrogen for 8 years beginning at age 43. Took tamoxifen for 5 years beginning at age 54. Physical Findings: A clinical breast exam by your physician is recommended on an annual basis and results should be correlated with mammographic findings. MG 3D Screening Mammo W/Cad Bilateral CC and MLO view(s) were taken. Prior study comparison: July 06, 2020, bilateral MG 3d diag mammo w/cad [facility]ENIA. July 04, 2019, bilateral MG 3d diag mammo w/cad [facility]. Asymmetric breast tissue greater in the left breast. Post surgical changes left breast. No significant changes when compared with prior studies. ASSESSMENT: Benign, BI-RAD 2 RECOMMENDATION: Routine screening mammogram of both breasts in 1 year.
== END ==
LOC: RADMAMWWP 09:47
PROVIDERS: ATTEND Internal Medicine Hematology & Oncology
DX: Z12.31 Encounter for screening mammogram for malignant neoplasm of breast (principal); Z80.3 Family history of malignant neoplasm of breast; Z85.3 Personal history of malignant neoplasm of breast
CPT/HCPCS: 77063; 77067

== ENCOUNTER 2021-07-13 20:50 | Emergency (ER) | payer MEDICARE ==
[2021-07-13 21:07] VITALS: TEMP 97
[2021-07-13] MEDS ORDERED: SODIUM CHLORIDE 0.9% 500 ML 500 ML IV STA (21:41)
--- NOTE | 2021-07-13 21:41 | ED ---
Abdominal Pain HPI - General Chief Complaint: Abdominal Pain Stated Complaint: Abd Pain Time Seen by Provider: 07/13/21 21:40 Source: patient Mode of arrival: wheelchair Limitations: no limitations - History of Present Illness Initial Comments: The patient is a pleasant 71-year-old female who presents to the ER today for evaluation of right upper quadrant abdominal pain. Patient reports that pain began this evening, did not occur after eating. Pain is located in the right upper quadrant radiates to the right shoulder associated with nausea but no v omiting. No change in bowel or bladder habits. - Related Data Home Medications Medication Instructions Recorded Confirmed Aspirin 81 mg PO DAILY 11/12/16 07/13/21 Atorvastatin [Lipitor] 20 mg PO HS 11/12/16 07/13/21 Levothyroxine Sodium [Synthroid] 137 mcg PO MOTUWETHFR 11/12/16 07/13/21 Levothyroxine Sodium [Synthroid] 150 mcg PO SUSA 11/12/16 07/13/21 diazePAM [Valium] 2 mg PO BID PRN 11/12/16 07/13/21 HYDROcodone/APAP 10-325MG [[place] 1 tab PO TID PRN 07/30/18 07/13/21 10-325] lisinopriL [Zestril] 5 mg PO DAILY 07/30/18 07/13/21 Loratadine [Claritin] 10 mg PO DAILY PRN 07/15/20 07/13/21 Meclizine [Antivert] 25 mg PO TID PRN 07/15/20 07/13/21 Allergies Allergy/AdvReac Type Severity Reaction Status Date / Time ibuprofen [From Motrin] Allergy Anaphylaxis Verified 07/13/21 22:42 Sulfa (Sulfonamide Allergy Swelling Verified 07/13/21 22:42 Antibiotics) neomycin AdvReac Unknown eye Verified 07/13/21 22:42 ointment caused itching, burning red eyes Tetracyclines AdvReac Nausea & Verified 07/13/21 22:42 Vomiting PET SCAN DYE Allergy Rash/Hives Uncoded 07/13/21 21:07 Review of Systems ROS Statement: Those systems with pertinent positive or pertinent negative responses have been documented in the HPI. ROS Other: All systems not noted in ROS Statement are negative. Past Medical History Past Medical History: Asthma, Cancer, COPD, Hearing Disorder / Deafness, Hyperlipidemia, Hypertension, Osteoarthritis (OA), Thyroid Disorder Additional Past Medical History / Comment(s): Breast Cancer 2003, HAD RADIATION. LT EAR BIG [place]. GRAVES DISEASE. HX VERTIGO. LT KNEE PAIN. GETS MUSCLE SPASMS IN LEGS IN NOC. AB CAUSES YEAST INFECTIONS. Had 1st Covid vaccine, fatigue only side effect, resolved now. History of Any Multi-Drug Resistant Organisms: None Reported Past Surgical History: Breast Surgery, Ear Surgery, Hysterectomy, Joint Replacement, Orthopedic Surgery, Tonsillectomy Additional Past Surgical History / Comment(s): Left Lumpectomy X2. LT EAR DRUM REPAIR. RT KNEE SCOPE. MULT EYE SURGERIES. EMERGENCY D&C. LT TKA, BILAT EYE SURGERIES R/T GRAVES DISEASE-HAS STENT IN RT EYE, PAIN CLINIC PROCEDURE. Past Anesthesia/Blood Transfusion Reactions: Postoperative Nausea & Vomiting (PONV) Past Psychological History: Anxiety Smoking Status: Former smoker - Past Family History Mother Family Medical History: Cancer Additional Family Medical History / Comment(s): STOMACH CANCER. Sister(s) Family Medical History: Cancer Father Family Medical History: Unable to Obtain General Exam - General Exam Comments Initial Comments: Physical Exam GENERAL: Appears uncomfortable HENT: Normocephalic, Atraumatic. EYES: PERRL, EOMI PULMONARY: Unlabored respirations. CARDIOVASCULAR: RRR Warm and well perfused extremities ABDOMEN: Tenderness to RUQ, positive mchugh sign SKIN: No rashes or bruising : Deferred NEUROLOGIC: Alert and oriented Normal speech Normal gait MUSCULOSKELETAL: Moving all extremities with no apparent injury PSYCHIATRIC: No SI/HI Limitations: no limitations Course Vital Signs 07/13/21 07/14/21 21:03 01:12 Temperature 97.0 F L Pulse Rate 111 H 77 Respiratory 20 18 Rate Blood Pressure 189/88 144/57 O2 Sat by Pulse 97 97 Oximetry Medical Decision Making - Medical Decision Making Patient was seen and evaluated patient with right upper quadrant abdominal pain labs and ultrasound were ordered. Initial labs have hemolysis with hyperkalemia, repeat labs with improvement. Ultrasound with a large gallbladder but no signs of acute cholecystitis. Patient's pain was managed patient was comfortable with plan for discharge home and outpatient follow-up. Patient understood dietary modifications and the need for follow-up for HIDA scan and surgical evaluation. - Lab Data Result diagrams: 07/13/21 21:53 07/13/21 22:39 Lab Results 07/13/21 07/13/21 07/13/21 Range/Units 21:53 21:53 21:59 WBC 6.6 (3.8-10.6) k/uL RBC 4.54 (3.80-5.40) m/uL Hgb 13.3 (11.4-16.0) gm/dL Hct 40.3 (34.0-46.0) % MCV 88.6 (80.0-100.0) fL MCH 29.4 (25.0-35.0) pg MCHC 33.1 (31.0-37.0) g/dL RDW 12.8 (11.5-15.5) % Plt Count 209 (150-450) k/uL MPV 9.4 Neutrophils % 50 % Lymphocytes % 34 % Monocytes % 7 % Eosinophils % 5 % Basophils % 1 % Neutrophils # 3.3 (1.3-7.7) k/uL Lymphocytes # 2.3 (1.0-4.8) k/uL Monocytes # 0.5 (0-1.0) k/uL Eosinophils # 0.4 (0-0.7) k/uL Basophils # 0.1 (0-0.2) k/uL Sodium 134 L (137-145) mmol/L Potassium 6.4 H* (3.5-5.1) mmol/L Chloride 104 (98-107) mmol/L Carbon Dioxide 24 (22-30) mmol/L Anion Gap 6 mmol/L BUN 24 H (7-17) mg/dL Creatinine 0.66 (0.52-1.04) mg/dL Est GFR (CKD-EPI)AfAm >90 (>60 ml/min/1.73 sqM) Est GFR (CKD-EPI)NonAf 89 (>60 ml/min/1.73 sqM) Glucose 116 H (74-99) mg/dL Calcium 9.5 (8.4-10.2) mg/dL Total Bilirubin 1.4 H (0.2-1.3) mg/dL AST 53 H (14-36) U/L ALT 19 (4-34) U/L Alkaline Phosphatase 85 (38-126) U/L Total Protein 7.5 (6.3-8.2) g/dL Albumin 4.3 (3.5-5.0) g/dL Lipase 42 (23-300) U/L Urine Color Light Yellow Urine Appearance Clear (Clear) Urine pH 7.5 (5.0-8.0) Ur Specific [place] 1.013 (1.001-1.035) Urine Protein Negative (Negative) Urine Glucose (UA) Negative (Negative) Urine Ketones Negative (Negative) Urine Blood Negative (Negative) Urine Nitrite Negative (Negative) Urine Bilirubin Negative (Negative) Urine Urobilinogen <2.0 (<2.0) mg/dL Ur Leukocyte Esterase Large H (Negative) Urine RBC 1 (0-5) /hpf Urine WBC 48 H (0-5) /hpf Urine WBC Clumps Rare H (None) /hpf Urine Bacteria Rare H (None) /hpf 07/13/21 Range/Units 22:39 WBC (3.8-10.6) k/uL RBC (3.80-5.40) m/uL Hgb (11.4-16.0) gm/dL Hct (34.0-46.0) % MCV (80.0-100.0) fL MCH (25.0-35.0) pg MCHC (31.0-37.0) g/dL RDW (11.5-15.5) % Plt Count (150-450) k/uL MPV Neutrophils % % Lymphocytes % % Monocytes % % Eosinophils % % Basophils % % Neutrophils # (1.3-7.7) k/uL Lymphocytes # (1.0-4.8) k/uL Monocytes # (0-1.0) k/uL Eosinophils # (0-0.7) k/uL Basophils # (0-0.2) k/uL Sodium 135 L (137-145) mmol/L Potassium 5.8 H (3.5-5.1) mmol/L Chloride 107 (98-107) mmol/L Carbon Dioxide 23 (22-30) mmol/L Anion Gap 5 mmol/L BUN 23 H (7-17) mg/dL Creatinine 0.65 (0.52-1.04) mg/dL Est GFR (CKD-EPI)AfAm >90 (>60 ml/min/1.73 sqM) Est GFR (CKD-EPI)NonAf 90 (>60 ml/min/1.73 sqM) Glucose 108 H (74-99) mg/dL Calcium 8.8 (8.4-10.2) mg/dL Total Bilirubin 1.2 (0.2-1.3) mg/dL AST 46 H (14-36) U/L ALT 17 (4-34) U/L Alkaline Phosphatase 78 (38-126) U/L Total Protein 6.6 (6.3-8.2) g/dL Albumin 3.7 (3.5-5.0) g/dL Lipase (23-300) U/L Urine Color Urine Appearance (Clear) Urine pH (5.0-8.0) Ur Specific [place] (1.001-1.035) Urine Protein (Negative) Urine Glucose (UA) (Negative) Urine Ketones (Negative) Urine Blood (Negative) Urine Nitrite (Negative) Urine Bilirubin (Negative) Urine Urobilinogen (<2.0) mg/dL Ur Leukocyte Esterase (Negative) Urine RBC (0-5) /hpf Urine WBC (0-5) /hpf Urine WBC Clumps (None) /hpf Urine Bacteria (None) /hpf Disposition Clinical Impression: RUQ abdominal pain Disposition: HOME SELF-CARE Condition: Stable Additional Instructions: You need to follow up with your primary care doctor and a surgeon, you likely need s HIDA scan to evaluate for gallbladder dysfunction Avoid fatty foods or fluids that contain oils including things like peanut butter. Is patient prescribed a controlled substance at d/c from ED?: No Referrals: Jaciel Mathias MD [Primary Care Provider] - 1-2 days Zana Yen MD [STAFF PHYSICIAN] - 1-2 days Radhika Hennessy MD [STAFF PHYSICIAN] - 1-2 days Pablito Gibbs MD [Medical Doctor] - 1-2 days
[2021-07-13] MEDS ORDERED: ONDANSETRON 4 MG/2 ML VIAL IVP STA (21:53)
[2021-07-13] MEDS ORDERED: MORPHINE SULFATE 4 MG/ML SYRINGE IVP STA (21:53)
[2021-07-13 22:21] LABS: ALT 19 U/L (4-34); AST 53 U/L (14-36); African American GFR (CKD) >90 (>60 ml/min/1.73 sqM); Albumin 4.3 g/dL (3.5-5.0); Alkaline Phosphatase 85 U/L (38-126); Anion Gap 6 mmol/L; Blood Urea Nitrogen 24 mg/dL (7-17); Calcium 9.5 mg/dL (8.4-10.2); Carbon Dioxide 24 mmol/L (22-30); Chloride 104 mmol/L (98-107); Glucose 116 mg/dL (74-99); Lipase 42 U/L (23-300); Non-African American GFR(CKD) 89 (>60 ml/min/1.73 sqM); Sodium 134 mmol/L (137-145); Total Bilirubin 1.4 mg/dL (0.2-1.3); Total Protein 7.5 g/dL (6.3-8.2)
[2021-07-13 22:26] LABS: Basophils # (A) 0.1 k/uL (0-0.2); Basophils % (A) 1 %; Eosinophils # (A) 0.4 k/uL (0-0.7); Eosinophils % (A) 5 %; HCT 40.3 % (34.0-46.0); HGB 13.3 gm/dL (11.4-16.0); Lymphocytes # (A) 2.3 k/uL (1.0-4.8); Lymphocytes % (A) 34 %; MCH 29.4 pg (25.0-35.0); MCHC 33.1 g/dL (31.0-37.0); MCV 88.6 fL (80.0-100.0); Mean Platelet Volume 9.4; Monocytes # (A) 0.5 k/uL (0-1.0); Monocytes % (A) 7 %; Neutrophils # (A) 3.3 k/uL (1.3-7.7); Neutrophils % (A) 50 %; Platelet Count 209 k/uL (150-450); RBC 4.54 m/uL (3.80-5.40); RDW 12.8 % (11.5-15.5); WBC 6.6 k/uL (3.8-10.6)
[2021-07-13 22:35] LABS: Potassium 6.4 mmol/L (3.5-5.1)
[2021-07-13 22:53] LABS: Appearance,Urine Clear (Clear); Bacteria,Urine Rare /hpf; Bilirubin,Urine Negative (Negative); Blood,Urine Negative (Negative); Color,Urine Light Yellow; Glucose,Urine (UA) Negative (Negative); Ketones,Urine Negative (Negative); Leukocyte Esterase,Urine Large (Negative); Nitrite,Urine Negative (Negative); PH, Urine 7.5 (5.0-8.0); Protein,Urine Negative (Negative); RBC,Urine 1 /hpf (0-5); Specific Gravity,Urine 1.013 (1.001-1.035); Urobilinogen,Urine <2.0 mg/dL (<2.0); WBC,Urine 48 /hpf (0-5)
[2021-07-13 23:02] LABS: ALT 17 U/L (4-34); AST 46 U/L (14-36); African American GFR (CKD) >90 (>60 ml/min/1.73 sqM); Albumin 3.7 g/dL (3.5-5.0); Alkaline Phosphatase 78 U/L (38-126); Anion Gap 5 mmol/L; Blood Urea Nitrogen 23 mg/dL (7-17); Calcium 8.8 mg/dL (8.4-10.2); Carbon Dioxide 23 mmol/L (22-30); Chloride 107 mmol/L (98-107); Glucose 108 mg/dL (74-99); Non-African American GFR(CKD) 90 (>60 ml/min/1.73 sqM); Sodium 135 mmol/L (137-145); Total Bilirubin 1.2 mg/dL (0.2-1.3); Total Protein 6.6 g/dL (6.3-8.2)
[2021-07-13 23:13] LABS: Potassium 5.8 mmol/L (3.5-5.1)
--- NOTE | 2021-07-13 23:52 | US ---
EXAMINATION TYPE: US gallbladder DATE OF EXAM: 07/13/2021 COMPARISON: NONE CLINICAL HISTORY: RUQ pain radiating to shoulder. Pain. EXAM MEASUREMENTS: Liver Length: 13.5 cm Gallbladder Wall: 0.21 cm CBD: 0.44 cm Right Kidney: 10.6 x 5.2 x 4.9 cm Limited exam due to overlying bowel gas. Pancreas: Limited visibility. Liver: No abnormalities seen, limited. Gallbladder: Minimal internal echoes seen versus artifact. Fold seen within neck. Evidence for sonographic Dhaliwal's sign: No. CBD: Portions seen appear wnl. Right Kidney: No hydronephrosis or masses seen IMPRESSION: Gallbladder is large. Gallbladder measures 3.8 cm in diameter. No dilated ducts. No definite gallston es.
[2021-07-14 01:14] VITALS: BP 144/57; PULSE 77; RESP 18
== END 2021-07-14 01:14 | disposition home or self-care (01) ==
LOC: EC 20:50
DX: R10.11 Right upper quadrant pain (principal); I10 Essential (primary) hypertension; E78.5 Hyperlipidemia, unspecified; J44.9 Chronic obstructive pulmonary disease, unspecified; M19.90 Unspecified osteoarthritis, unspecified site; F41.9 Anxiety disorder, unspecified; Z79.890 Hormone replacement therapy; Z79.82 Long term (current) use of aspirin; Z79.899 Other long term (current) drug therapy; Z87.891 Personal history of nicotine dependence; Z88.2 Allergy status to sulfonamides; Z88.1 Allergy status to other antibiotic agents; Z88.6 Allergy status to analgesic agent
CPT/HCPCS: 36415; 80053; 83690; 85025; 81001; 87086; 76705; 99284; 96374; 96375; J2270; J2405

== ENCOUNTER → 2021-07-21 | Outpatient (CLI) | payer MEDICARE ==
[2021-07-21 16:38] LABS: Blood Urea Nitrogen 15.7 mg/dL (9.0-27.0); Non-African American GFR(CKD) 85.4 (60.0-200.0); Uric Acid 3.9 mg/dL (2.9-7.7)
== END | disposition home or self-care (01) ==
LOC: LABWHC1 09:35
PROVIDERS: ATTEND Podiatrist
DX: M10.9 Gout, unspecified (principal)
CPT/HCPCS: 36415; 82565; 84450; 84460; 84520; 84550

== ENCOUNTER → 2021-08-10 | Outpatient (CLI) | payer MEDICARE ==
--- NOTE | 2021-08-10 09:37 | NM ---
Nuclear medicine hepatobiliary scan. HISTORY: Pain. DOSAGE: The patient received 8 ounces and sure plus and 4.7 mCi of Technetium 99m Choletec. FINDINGS: There is normal hepatic extraction. The gallbladder is seen by 20 minutes. Ejection frac tion is 28%. IMPRESSION: 1. Correlate for biliary dyskinesia.
== END | disposition home or self-care (01) ==
LOC: RADNMMAIN 06:51
PROVIDERS: ATTEND Family Medicine
DX: R10.9 Unspecified abdominal pain (principal)
CPT/HCPCS: 78226; A9537

== ENCOUNTER → 2021-09-24 | Outpatient (CLI) | payer MEDICARE ==
[2021-09-24 11:11] LABS: ALT 15 U/L (8-44); AST 17 U/L (13-35); Chol/HDL Ratio 2.18 Ratio; LDL Cholesterol,Calculated 56.1 mg/dL (0.0-131.0)
== END | disposition home or self-care (01) ==
LOC: LABWHC1 07:14
PROVIDERS: ATTEND Family Medicine
DX: E78.2 Mixed hyperlipidemia (principal)
CPT/HCPCS: 36415; 80061; 84450; 84460

== ENCOUNTER 2021-10-15 08:41 | Day surgery (SDC) | payer MEDICARE ==
[2021-10-13 14:17] VITALS: BMI 25.7
[~2021-10-15 08:41] MED LIST changes: +ACETAMINOPHEN TAB 500 MG TAB PO PRN; +DEXAMETHASONE SOD PHOSPHATE 4 MG/ML 1 ML VIAL IV ONE; +HEPARIN SODIUM,PORCINE/PF 5,000 UNIT/0.5 ML SYRINGE SQ PRN; +HYDROmorphone 0.5 MG/0.5 ML SYRINGE IVP PRN; +MIDAZOLAM 2 MG/2 ML VIAL IV PRN; +ONDANSETRON 4 MG/2 ML VIAL IVP ONE; -ROPIVACAINE 5MG/ML 20ML VIAL ONE; -TRIAMCINOLONE ACETONIDE 40 MG/ML 1 ML VIAL ONE
[2021-10-15] MEDS ORDERED: SCOPOLAMINE 1.5MG/72HR PATCH TRANSDERM ONE (10:18)
[2021-10-15] MEDS ORDERED: GLYCOPYRROLATE 0.2 MG/ML 2 ML VIAL ONE (10:20)
[2021-10-15] MEDS ORDERED: SUCCINYLCHOLINE CHLORIDE 100 MG/5 ML SYR IV ONE (10:20)
[2021-10-15] MEDS ORDERED: HYDROmorphone (PF) 1 MG/ML ONE (10:20)
[2021-10-15] MEDS ORDERED: fentaNYL (PF) 50 MCG/ML 2 ML AMP ONE (10:20)
[2021-10-15] MEDS ORDERED: LIDOCAINE 1% INJ 10MG/ML (20 ML MDV) ONE (10:20)
[2021-10-15] MEDS ORDERED: MIDAZOLAM 2 MG/2 ML VIAL ONE (10:20)
[2021-10-15] MEDS ORDERED: ePHEDrine 50 MG/ML 1 ML VIAL ONE (10:20)
[2021-10-15] MEDS ORDERED: ROCURONIUM 10 MG/ML (5 ML VIAL) IV ONE (10:20)
[2021-10-15] MEDS ORDERED: NEOSTIGMINE 1 MG/ML 10 ML VIAL ONE (10:20)
[2021-10-15] MEDS ORDERED: PROPOFOL 10 MG/ML 20 ML VIAL IV ONE (10:20)
[2021-10-15] MEDS ORDERED: BUPIVACAINE (PF) 0.25% 30 ML VIAL SQ ONE ×3 (10:32→10:52)
--- NOTE | 2021-10-15 11:09 | P.OP ---
Date of Procedure: 10/15/21 Procedure(s) Performed: PREOPERATIVE DIAGNOSIS: Chronic cholecystitis POSTOPERATIVE DIAGNOSIS: Same PROCEDURE: Laparoscopic cholecystectomy SURGEON: Sai EBL: Minimal see anesthesia record ANESTHESIA: Gen. COMPLICATIONS: None OPERATIVE PROCEDURE: The patient was brought and placed on the operating room table in the supine position. The patient was placed under general anesthesia at that time. The abdomen was prepped and draped in the usual sterile fashion. A small vertical infraumbilical incision was made. The fascia was grasped with the Jennifer forceps. The fascia was retracted anteriorly. The Veress needle was advanced into the peritoneal cavity. The saline drop test was normal. Insufflation took place up to 15 mmHg. A 5 mm optical trocar was advanced and the peritoneal cavity. 2 additional 5 mm trochars were placed in the right upper quadrant under direct visualization. A 12 mm trocar was advanced into the epigastric incision site. The gallbladder was retracted superiorly and laterally. The peritoneum overlying the infundibulum was bluntly dissected. The patient's cystic duct was visualized. The junction between the cystic duct common and hepatic duct was identified. The critical view of safety was achieved after blunt dissection. The cystic duct was then divided after placement of 3 12 mm clips on the patient's side and one on the specimen side. The cystic artery was identified and clipped as well. A small vessel was seen along the gallbladder fossa and clipped as well. The gallbladder was then removed from the liver bed using electrocautery. The gallbladder was then removed from the epigastric trocar site with an Endo Catch bag. The gallbladder fossa was irrigated with saline. There was no evidence of any bleeding or biliary drainage seen. The fascia at the 12 millimeter site was closed using a Shayan-Pati 0 Vicryl stitch. The trochars were then removed. The skin at all 4 sites was closed using a 4-0 Monocryl stitch. Skin glue was utilized on the incision sites. At the end of this procedure the sponge and needle counts were correct. DISPOSITION: Stable to the recovery room
[2021-10-15 11:14] VITALS: TEMP 97
[2021-10-15] MEDS ORDERED: LACTATED RINGERS 1,000 ML IV ONE ×2 (11:25)
[2021-10-15] MEDS ORDERED: ACETAMINOPHEN TAB 325 MG TAB PO SCH (12:00)
[2021-10-15] MEDS: fentaNYL (PF) 50 MCG/ML 2 ML AMP ONE ×2 (12:50→12:59)
[2021-10-15 12:55] VITALS: BP 137/81; PULSE 71; RESP 16
[2021-10-15] MEDS ORDERED: HYDROcodone/APAP 10-325MG 1 EACH TAB PO ONE ×2 (13:03→13:25)
[2021-10-15] MEDS ORDERED: ONDANSETRON 4 MG/2 ML VIAL ONE (13:20)
[2021-10-15] MEDS ORDERED: HYDROcodone/APAP 10-325MG 1 EACH TAB ONE (13:20)
[2021-10-15] MEDS ORDERED: ONDANSETRON 4 MG/2 ML VIAL IVP ONE (13:29)
== END 2021-10-15 14:07 | disposition home or self-care (01) ==
LOC: OR 08:41
PROVIDERS: ATTEND Surgery
DX: K81.1 Chronic cholecystitis (principal); I10 Essential (primary) hypertension; K59.00 Constipation, unspecified; M10.9 Gout, unspecified; M19.90 Unspecified osteoarthritis, unspecified site; E07.9 Disorder of thyroid, unspecified; F17.210 Nicotine dependence, cigarettes, uncomplicated; E78.2 Mixed hyperlipidemia; R00.2 Palpitations; J44.9 Chronic obstructive pulmonary disease, unspecified; Z85.3 Personal history of malignant neoplasm of breast; Z79.890 Hormone replacement therapy; Z79.899 Other long term (current) drug therapy; Z79.82 Long term (current) use of aspirin; Z88.1 Allergy status to other antibiotic agents; Z88.2 Allergy status to sulfonamides; Z88.8 Allergy status to other drugs, medicaments and biological substances; Z98.890 Other specified postprocedural states; Z90.89 Acquired absence of other organs; Z90.710 Acquired absence of both cervix and uterus; Z80.3 Family history of malignant neoplasm of breast; Z82.61 Family history of arthritis; Z82.49 Family history of ischemic heart disease and other diseases of the circulatory system
CPT/HCPCS: 88304; 84132; 47562; J2250; J1100; J2710; J0690; J2405; J2001; J3010; J1170; J0330; J2704; J1644

== ENCOUNTER → 2022-01-14 | Outpatient (CLI) | payer MEDICARE ==
--- NOTE | 2022-01-14 15:59 | MR ---
EXAMINATION TYPE: MR brain/orbits wo/w con DATE OF EXAM: 01/14/2022 COMPARISON: HISTORY: Hx of graves disease, exophthalmos TECHNIQUE: Multiplanar, multisequence images of the brain and brainstem, orbits is performed without and with IV contrast, utilizing 7.5 mL intravenous Gadavist . FINDINGS: Diffusion weighted images demonstrate no evidence of a recent infarct or other diffusion ab normality. There is no extra-axial fluid collection. Scattered periventricular, subcortical hyperin tensities are present on inversion recovery T2-weighted sequences, approximately 5 lesions are presen t The ventricular system and cisternal spaces are normal in size and appearance. The brain volume is age appropriate. Midline structures demonstrate normal morphology, there is a partially empty sella. The craniocervic al junction appears within normal limits. Post contrast images demonstrate no abnormal enhancement. The dural venous sinuses appear patent. The visualized sinuses are remarkable for inflammatory change within the ethmoid air cells, mucosal thickening present within the right maxillary sinus, and the g lobes are intact. The orbits show exophthalmos consistent with patient's history, no evident intraorbital mass. No abno rmal enhancement following contrast administration. Extraocular musculature thought to be within norm al limits. Retroocular fat appears increased. Optic nerves are normal. IMPRESSION: Findings consistent with patient's history. Age-related changes of probable chronic small vessel ischemia and cortical atrophy. Sinus disease.
== END | disposition home or self-care (01) ==
LOC: RADMRIMAIN 09:03
PROVIDERS: ATTEND Ophthalmology
DX: J32.9 Chronic sinusitis, unspecified (principal)
CPT/HCPCS: 70543; 70553; A9585

== ENCOUNTER → 2022-03-08 | Outpatient (CLI) | payer MEDICARE ==
[2022-03-08 18:15] LABS: African American GFR (CKD) 85.4 (60.0-200.0); Non-African American GFR(CKD) 73.7 (60.0-200.0); Uric Acid 3.9 mg/dL (2.9-7.7)
== END | disposition home or self-care (01) ==
LOC: LABWHC1 11:16
PROVIDERS: ATTEND Podiatrist
DX: M10.9 Gout, unspecified (principal)
CPT/HCPCS: 36415; 82565; 84450; 84460; 84520; 84550

== ENCOUNTER → 2022-06-13 | Outpatient (CLI) | payer MEDICARE ==
[2022-06-13 15:27] LABS: African American GFR (CKD) 100.3 (60.0-200.0); Blood Urea Nitrogen 19.8 mg/dL (9.0-27.0); Non-African American GFR(CKD) 86.6 (60.0-200.0); Uric Acid 4.1 mg/dL (2.9-7.7)
== END | disposition home or self-care (01) ==
LOC: LABWHC1 10:32
PROVIDERS: ATTEND Podiatrist
DX: M10.9 Gout, unspecified (principal)
CPT/HCPCS: 36415; 82565; 84450; 84460; 84520; 84550

== ENCOUNTER → 2022-06-20 | Outpatient (CLI) | payer MEDICARE ==
--- NOTE | 2022-06-20 11:11 | XR ---
EXAMINATION TYPE: XR ribs bilat w pa chest xray DATE OF EXAM: 06/20/2022 COMPARISON: NONE HISTORY: Pain TECHNIQUE: Frontal view of the chest in 8 views of the bilateral ribs are submitted FINDINGS: Heart size is normal. No failure. Postsurgical change overlying the left breast. Arthropath y of the AC joints. Rib cage is intact. IMPRESSION: No acute displaced rib fracture. Surgical clips in the upper abdomen noted.
== END | disposition home or self-care (01) ==
LOC: RADXRMAIN 09:33
PROVIDERS: ATTEND Family Medicine
DX: R07.81 Pleurodynia (principal)
CPT/HCPCS: 71111

== ENCOUNTER → 2022-06-25 | Emergency (ER) | payer MEDICARE | LOC: EC 07:45 | DX: T85.328A Displacement of other ocular prosthetic devices, implants and grafts, initial encounter (principal) | CPT/HCPCS: 99282 ==

== ENCOUNTER 2022-07-03 10:31 | Emergency (ER) | payer MEDICARE ==
[2022-07-03] MEDS ORDERED: ONDANSETRON 4 MG/2 ML VIAL IVP STA (10:44)
[2022-07-03 10:45] VITALS: TEMP 97.5
--- NOTE | 2022-07-03 10:48 | ED ---
Syncope HPI - General Chief Complaint: Syncope Stated Complaint: Syncope Time Seen by Provider: 07/03/22 10:32 Source: patient, family, EMS, RN notes reviewed Mode of arrival: EMS Limitations: no limitations - History of Present Illness Initial Comments: This is a 72-year-old female who presents to the emergency department for a syncopal episode. She was shopping at [employer] earlier today when she proceeded to have a syncopal episode. States that she felt unwell prior to this episode and her laid her back gently so she did not hit her head. She does not remember the event itself, and she was believed to be unconscious for approximately 30 seconds. Afterwards she felt somewhat disoriented. EMS noted her to be diaphoretic on arrival with a low blood pressure of 80/60. She was however alert and oriented 4. Additionally, she was diagnosed with COVID one week ago. She was treated with steroids which she felt was beneficial, and she finished this yesterday. She does complain of shortness of breath and feeling winded very easily, denies any chest pain. Denies any history of similar symptoms in the past. Currently, she is feeling weak and unwell with associated nausea. Denies any fevers, chills, sore throat, cough, chest pain, palpitations, abdominal pain, vomiting, diarrhea, back pain, or headaches. MD Complaint: loss of consciousness, collapsed Prodromal Symptoms: lightheaded Duration of Episode: 30 -: second(s) Witnessed: yes - by bystander Injuries Sustained Associated with Event: None Current Symptoms: nausea, weakness Treatments Prior to Arrival: IV fluids - Related Data Home Medications Medication Instructions Recorded Confirmed Aspirin 81 mg PO DAILY 11/12/16 10/13/21 Atorvastatin [Lipitor] 20 mg PO HS 11/12/16 10/13/21 Levothyroxine Sodium [Synthroid] 137 mcg PO MOTUWETHFR 11/12/16 10/13/21 Levothyroxine Sodium [Synthroid] 150 mcg PO SUSA 11/12/16 10/13/21 diazePAM [Valium] 2 mg PO BID PRN 11/12/16 10/13/21 HYDROcodone/APAP 10-325MG [Watkins 1 tab PO TID PRN 07/30/18 10/13/21 10-325] lisinopriL [Zestril] 5 mg PO DAILY 07/30/18 10/13/21 Loratadine [Claritin] 10 mg PO DAILY 07/15/20 10/13/21 Meclizine [Antivert] 25 mg PO TID PRN 07/15/20 10/13/21 Allergies Allergy/AdvReac Type Severity Reaction Status Date / Time ibuprofen [From Motrin] Allergy Anaphylaxis Verified 07/03/22 10:41 Sulfa (Sulfonamide Allergy Swelling Verified 07/03/22 10:41 Antibiotics) neomycin AdvReac Unknown eye Verified 07/03/22 10:41 ointment caused itching, burning red eyes Tetracyclines AdvReac Nausea & Verified 07/03/22 10:41 Vomiting PET SCAN DYE Allergy Rash/Hives Uncoded 07/03/22 10:41 Review of Systems ROS Statement: Those systems with pertinent positive or pertinent negative responses have been documented in the HPI. ROS Other: All systems not noted in ROS Statement are negative. Past Medical History Past Medical History: Asthma, Cancer, COPD, Hearing Disorder / Deafness, Hyperlipidemia, Hypertension, Osteoarthritis (OA), Thyroid Disorder Additional Past Medical History / Comment(s): Breast Cancer 2003, HAD RADIATION. LT EAR MODOC. GRAVES DISEASE. HX VERTIGO. LT KNEE PAIN. GETS MUSCLE SPASMS IN LEGS IN NOC. AB CAUSES YEAST INFECTIONS. Had 1st Covid vaccine, fatigue only side effect, resolved now. History of Any Multi-Drug Resistant Organisms: None Reported Past Surgical History: Breast Surgery, Ear Surgery, Hysterectomy, Joint Replacement, Orthopedic Surgery, Tonsillectomy Additional Past Surgical History / Comment(s): Left Lumpectomy X2. LT EAR DRUM REPAIR. RT KNEE SCOPE. MULT EYE SURGERIES. EMERGENCY D&C. LT TKA, BILAT EYE SURGERIES R/T GRAVES DISEASE-HAS STENT IN RT EYE, PAIN CLINIC PROCEDURE. Past Anesthesia/Blood Transfusion Reactions: Postoperative Nausea & Vomiting (PONV) Past Psychological History: Anxiety Smoking Status: Former smoker - Past Family History Mother Family Medical History: Cancer Additional Family Medical History / Comment(s): STOMACH CANCER. Sister(s) Family Medical History: Cancer Father Family Medical History: Unable to Obtain General Exam Limitations: no limitations General appearance: alert, in no apparent distress Head exam: Present: atraumatic, normocephalic, normal inspection Eye exam: Present: normal appearance, PERRL, EOMI. Absent: scleral icterus, conjunctival injection, periorbital swelling Neck exam: Present: normal inspection. Absent: tenderness, meningismus, lymphadenopathy Respiratory exam: Present: normal lung sounds bilaterally. Absent: respiratory distress, wheezes, rales, rhonchi, stridor Cardiovascular Exam: Present: regular rate, normal rhythm, normal heart sounds. Absent: systolic murmur, diastolic murmur, rubs, gallop, clicks GI/Abdominal exam: Present: soft, normal bowel sounds. Absent: distended, tenderness, guarding, rebound, rigid Neurological exam: Present: alert, oriented X3, CN II-XII intact Psychiatric exam: Present: normal affect, normal mood Skin exam: Present: warm, dry, intact, normal color. Absent: rash Course Vital Signs 07/03/22 07/03/22 07/03/22 10:32 13:17 14:39 Temperature 97.5 F L Pulse Rate 70 75 75 Respiratory 20 18 18 Rate Blood Pressure 141/92 133/74 122/67 O2 Sat by Pulse 100 99 98 Oximetry EKG Findings - EKG Comments: EKG Findings:: Sinus rhythm. Normal axis. Ventricular rate 65 bpm, IL interval 138 ms, QRS duration 100 ms, QTC 415 milliseconds. - EKG Results: EKG: interpreted by ANITA Medical Decision Making - Medical Decision Making This is a 72-year-old female who presents to the emergency department for a syncopal episode. Lab work reveals mild leukocytosis and an elevated d-dimer. Chest x-ray obtained and my interpretation does not identify any consolidations or infiltrates. Given the elevated d-dimer, a CT angiogram of the chest was obtained. My interpretation of this again did not identify any consolidations or infiltrates. The radiologist did not identify any signs of a pulmonary embolus. She was given IV fluids and Zofran. She did start to improve during her time here and states that she eventually felt back to baseline. She and her believes that she overdid it while being in recovery from COVID. I did strongly recommend admission due to her age and the syncopal episode. Patient declined despite my strongest recommendation. She was willing to stay for a repeat troponin, which was negative. Her assured me that he will pay very close attention to her tonight and bring her back immediately if she exhibits any changes. Instructed her to get plenty of rest, drink plenty of fluids, and to slowly advance her activity level as tolerated. Return precautions reviewed in depth, the patient is instructed to return to the emergency department with any new, worsening, or concerning symptoms. Patient verbalized understanding. This case was discussed in detail with the attending ED physician. Presentation, findings, and treatment plan discussed in detail as well. - Lab Data Result diagrams: 07/03/22 10:47 07/03/22 10:47 Lab Results 07/03/22 07/03/22 07/03/22 Range/Units 10:47 10:47 10:47 WBC 12.6 H (3.8-10.6) k/uL RBC 4.85 (3.80-5.40) m/uL Hgb 14.5 (11.4-16.0) gm/dL Hct 41.0 (34.0-46.0) % MCV 84.5 (80.0-100.0) fL MCH 29.9 (25.0-35.0) pg MCHC 35.4 (31.0-37.0) g/dL RDW 13.0 (11.5-15.5) % Plt Count 262 (150-450) k/uL MPV 9.5 Neutrophils % 56 % Lymphocytes % 37 % Monocytes % 4 % Eosinophils % 1 % Basophils % 1 % Neutrophils # 7.0 (1.3-7.7) k/uL Lymphocytes # 4.7 (1.0-4.8) k/uL Monocytes # 0.6 (0-1.0) k/uL Eosinophils # 0.1 (0-0.7) k/uL Basophils # 0.1 (0-0.2) k/uL PT 9.9 (9.0-12.0) sec INR 0.9 (<1.2) APTT 19.5 L (22.0-30.0) sec D-Dimer 0.86 H (<0.60) mg/L FEU Sodium 137 (137-145) mmol/L Potassium 3.4 L (3.5-5.1) mmol/L Chloride 105 (98-107) mmol/L Carbon Dioxide 22 (22-30) mmol/L Anion Gap 10 mmol/L BUN 23 H (7-17) mg/dL Creatinine 0.73 (0.52-1.04) mg/dL Est GFR (CKD-EPI)AfAm >90 (>60 ml/min/1.73 sqM) Est GFR (CKD-EPI)NonAf 83 (>60 ml/min/1.73 sqM) Glucose 103 H (74-99) mg/dL Calcium 9.1 (8.4-10.2) mg/dL Magnesium 1.8 (1.6-2.3) mg/dL Total Bilirubin 0.4 (0.2-1.3) mg/dL AST 23 (14-36) U/L ALT 24 (4-34) U/L Alkaline Phosphatase 121 (38-126) U/L Troponin I (0.000-0.034) ng/mL Total Protein 6.7 (6.3-8.2) g/dL Albumin 4.1 (3.5-5.0) g/dL 07/03/22 07/03/22 Range/Units 10:47 13:25 WBC (3.8-10.6) k/uL RBC (3.80-5.40) m/uL Hgb (11.4-16.0) gm/dL Hct (34.0-46.0) % MCV (80.0-100.0) fL MCH (25.0-35.0) pg MCHC (31.0-37.0) g/dL RDW (11.5-15.5) % Plt Count (150-450) k/uL MPV Neutrophils % % Lymphocytes % % Monocytes % % Eosinophils % % Basophils % % Neutrophils # (1.3-7.7) k/uL Lymphocytes # (1.0-4.8) k/uL Monocytes # (0-1.0) k/uL Eosinophils # (0-0.7) k/uL Basophils # (0-0.2) k/uL PT (9.0-12.0) sec INR (<1.2) APTT (22.0-30.0) sec D-Dimer (<0.60) mg/L FEU Sodium (137-145) mmol/L Potassium (3.5-5.1) mmol/L Chloride (98-107) mmol/L Carbon Dioxide (22-30) mmol/L Anion Gap mmol/L BUN (7-17) mg/dL Creatinine (0.52-1.04) mg/dL Est GFR (CKD-EPI)AfAm (>60 ml/min/1.73 sqM) Est GFR (CKD-EPI)NonAf (>60 ml/min/1.73 sqM) Glucose (74-99) mg/dL Calcium (8.4-10.2) mg/dL Magnesium (1.6-2.3) mg/dL Total Bilirubin (0.2-1.3) mg/dL AST (14-36) U/L ALT (4-34) U/L Alkaline Phosphatase (38-126) U/L Troponin I <0.012 <0.012 (0.000-0.034) ng/mL Total Protein (6.3-8.2) g/dL Albumin (3.5-5.0) g/dL - Radiology Data Radiology results: report reviewed, image reviewed Disposition Clinical Impression: Syncope Disposition: HOME SELF-CARE Instructions (If sedation given, give patient instructions): Syncope (ED), Safely Care for Someone Who Has COVID-19 (ED), How to Recover from COVID-19 at Home (ED) Additional Instructions: Return to the emergency department with any new, worsening, or concerning symptoms. Make sure that you remain well-hydrated and get plenty of rest. You can take the Zofran up to every 8 hours as needed for any nausea or vomiting. Slowly advance your activity level as tolerated. Follow up with your primary care provider in 1-2 days. Is patient prescribed a controlled substance at d/c from ED?: No Referrals: Preston Barrow DO [Primary Care Provider] - 1-2 days
[2022-07-03 10:54] LABS: Basophils # (A) 0.1 k/uL (0-0.2); Basophils % (A) 1 %; Eosinophils # (A) 0.1 k/uL (0-0.7); Eosinophils % (A) 1 %; HGB 14.5 gm/dL (11.4-16.0); Lymphocytes # (A) 4.7 k/uL (1.0-4.8); Lymphocytes % (A) 37 %; MCH 29.9 pg (25.0-35.0); MCHC 35.4 g/dL (31.0-37.0); MCV 84.5 fL (80.0-100.0); Mean Platelet Volume 9.5; Monocytes # (A) 0.6 k/uL (0-1.0); Monocytes % (A) 4 %; Neutrophils % (A) 56 %; Platelet Count 262 k/uL (150-450); RBC 4.85 m/uL (3.80-5.40); WBC 12.6 k/uL (3.8-10.6)
[2022-07-03 11:03] LABS: ALT 24 U/L (4-34); AST 23 U/L (14-36); African American GFR (CKD) >90 (>60 ml/min/1.73 sqM); Albumin 4.1 g/dL (3.5-5.0); Alkaline Phosphatase 121 U/L (38-126); Anion Gap 10 mmol/L; Blood Urea Nitrogen 23 mg/dL (7-17); Calcium 9.1 mg/dL (8.4-10.2); Carbon Dioxide 22 mmol/L (22-30); Chloride 105 mmol/L (98-107); Glucose 103 mg/dL (74-99); Magnesium 1.8 mg/dL (1.6-2.3); Non-African American GFR(CKD) 83 (>60 ml/min/1.73 sqM); Potassium 3.4 mmol/L (3.5-5.1); Sodium 137 mmol/L (137-145); Total Bilirubin 0.4 mg/dL (0.2-1.3); Total Protein 6.7 g/dL (6.3-8.2)
--- NOTE | 2022-07-03 11:06 | XR ---
EXAMINATION TYPE: XR chest 2V DATE OF EXAM: 07/03/2022 COMPARISON: 06/20/22 HISTORY: Shortness of breath TECHNIQUE: Frontal and lateral views of the chest are obtained. FINDINGS: Scattered senescent parenchymal changes noted. Hyperinflation compatible with COPD. No evidence for infiltrate. No evidence for atelectasis. Heart size is stable. Mediastinal structures are stable and grossly unremarkable. No evidence for hilar prominence. Degenerative changes dorsal spine. IMPRESSION: 1. No evidence for acute pulmonary disease.
[2022-07-03 11:21] LABS: INR 0.9 (<1.2); Prothrombin Time 9.9 sec (9.0-12.0)
[2022-07-03 11:28] LABS: Partial Thromboplastin Time 19.5 sec (22.0-30.0)
--- NOTE | 2022-07-03 12:16 | CT ---
EXAMINATION TYPE: CT chest angio for PE DATE OF EXAM: 07/03/2022 COMPARISON: HISTORY: Elevated d-dimer, difficulty breathing, COVID X [address] DLP: 319.2 mGycm CONTRAST: CT chest with contrast and 3D reconstruction with MIP imaging is performed with IV Contrast, patient injected with 100, wasted 31 mL of Isovue 370. Contrast-enhanced CT of the chest was performed through the course of the pulmonary arteries with nigel g and mediastinal window settings submitted. 3D reconstruction with MIP imaging was also performed. PULMONARY ARTERIES: The pulmonary arteries and their major tributaries are patent. I do not see keke dence for sizable filling defect to suggest pulmonary embolic process. LUNGS: The lungs are clear and free of infiltrate. No evidence for atelectasis. No pulmonary nodule or mass is detected. No pleural effusion. MEDIASTINUM: Thoracic aorta is of normal caliber,however, evaluation is limited given timing of the contrast bolus. If there is concern for thoracic aortic pathology consider HILLARY. Correlate clinicall y . The heart is not enlarged. No evidence for mediastinal mass. No mediastinal lymph nodes greater than 1cm. HILAR STRUCTURES: No evidence for mass. No hilar lymph nodes greater than 1 cm. UPPER ABDOMEN: No significant abnormality is seen. IMPRESSION: 1. No evidence for Pulmonary embolism at this time.
[2022-07-03 13:18] VITALS: PULSE 75; RESP 18
[2022-07-03] MEDS ORDERED: ONDANSETRON 4 MG ODT STARTER PACK 2 TAB BTL PO STA (14:06)
[2022-07-03 14:40] VITALS: BP 122/67
== END 2022-07-03 14:39 | disposition home or self-care (01) ==
LOC: EC 10:31
DX: R55 Syncope and collapse (principal); J45.909 Unspecified asthma, uncomplicated; C80.1 Malignant (primary) neoplasm, unspecified; J44.9 Chronic obstructive pulmonary disease, unspecified; E78.5 Hyperlipidemia, unspecified; I10 Essential (primary) hypertension; F41.9 Anxiety disorder, unspecified; Z87.891 Personal history of nicotine dependence; M19.90 Unspecified osteoarthritis, unspecified site; E07.9 Disorder of thyroid, unspecified; Z79.02 Long term (current) use of antithrombotics/antiplatelets; Z79.01 Long term (current) use of anticoagulants; Z88.6 Allergy status to analgesic agent; Z88.1 Allergy status to other antibiotic agents; Z88.2 Allergy status to sulfonamides; Z79.899 Other long term (current) drug therapy
CPT/HCPCS: 93005; 85379; 80053; 83735; 84484; 85025; 85610; 85730; 71046; 71275; 99285; 96374; J2405; S0119; Q9967; 36415

== ENCOUNTER → 2022-07-11 | Outpatient (CLI) | payer MEDICARE ==
--- NOTE | 2022-07-11 12:39 | BD ---
EXAMINATION TYPE: Axial Bone Density DATE OF EXAM: 07/11/2022 COMPARISON: NONE CLINICAL HISTORY: 72 years year old Female. ICD-10 CODE: C50.919 Breast ca Height: 5 FT 5 IN Weight: 170 FRAX RISK QUESTIONS: Alcohol (3 or more units per day): NO Family History (Parent hip fracture): YES Glucocorticoids (More than 3mos): NO (Ex: prednisone, prednisolone, methylprednisolone, dexamethasone, and hydrocortisone). History of Fracture in Adulthood: YES Secondary Osteoporosis: 1. Type 1 Diabetes: NO 2. Hyperthyroidism: YES NOW HYPO 3. Menopause before 45: YES 4. Malnutrition: NO 5. Chronic liver disease: NO Rheumatoid Arthritis: NO Current Tobacco Use: NO RISK FACTORS HISTORY OF: Surgery to Spine/Hip(right/left)/Wrist (right/left): NO Family History of Osteoporosis: YES Active: YES Diet low in dairy products/other sources of calcium: NO Postmenopausal woman: YES Take estrogen and/or progesterone medications: NONE NOW Lost more than 2 inches in height since high school: NO Frequent falls: NO Poor Health: GOOD Hyperparathyroidism: NO Adrenal Insufficiency: NO MEDICATIONS: Thyroid Medications: YES Which medication: LEVOTHYROXINE How Long: SINCE AGE 25 Additional Medications: ATORVASTATIN, LEVOTHYROXINE , LISINOPRIL DIAZEPAM, Additional History: EXAM MEASUREMENTS: Bone mineral densitometry was performed using the [employer] System. Bone mineral density as measured about the Lumbar spine is: ----- L1-L4(G/cm2): 1.011 T Score Values are as follows: ----- L1: -1.7 ----- L2: -1.7 ----- L3: -1.2 ----- L4: -1.2 ----- L1-L4: -1.4 Bone mineral density has: DECREASED -7.5 % since study of: 2019 Bone mineral density about the R hip (g/cm2): 0.678 Bone mineral density about the L hip (g/cm2): 0.714 T Score values are as follows: -----R Neck: -2.6 -----L Neck: -2.3 -----R Total: -2.4 -----L Total: -2.5 Bone mineral density has: DECREASED -2.1 % since study of: 2020 FRAX%s: The graph provided illustrates a 13.0 % chance for a major osteoporotic fx and a 7.4 % chance for the hips probability for fx in 10 years time. IMPRESSION: Osteopenia (T Score between -2.5 and -1). There is slightly increased risk of fracture and the patient may be considered for treatment. Re-Screen 2-5 years. NOTE: T-SCORE=SD OF THE YOUNG ADULT MEAN.
--- NOTE | 2022-07-12 08:43 | MM ---
Reason for Exam: Screening (asymptomatic). Last screening mammogram was performed 12 month(s) ago. Patient History: Menarche at age 13. First Full-Term at age 23. Left ovary removed at age 43. Right ovary removed at age 43. Hysterectomy at age 43. Postmenopausal. Breast cancer, left, age 53. Previous chest radiation therapy at age 53. Estrogen for 8 years from age 43 until age 51. Hormonal Contraceptives for 3 years from age 24 until age 43. Tamoxifen, starting at age 54 for 5 years. Cyst Aspiration on the Left side. Lumpectomy on the Left side. Core Biopsy on the Left side. 01/02/2004, Malignant Stereotactic Core Biopsy on the left side. Radiation Therapy, left. Sister had breast cancer, age 57. Prior Study Comparison: 07/04/2019 Bilateral Diagnostic Mammogram, [facility]. 07/06/2020 Bilateral Diagnostic Mammogram, [facility]. 07/07/2021 Bilateral Screening Mammogram, [facility]. Tissue Density: The breast tissue is heterogeneously dense. This may lower the sensitivity of mammography. Findings: Analyzed By CAD. There is no suspicious group of microcalcifications or new suspicious mass in either breast. Postsurgical changes of the left breast. Benign-appearing calcifications within both breasts. No significant change from prior exams. Overall Assessment: Benign, BI-RAD 2 Management: Screening Mammogram of both breasts in 1 year. A clinical breast exam by your physician is recommended on an annual basis and results should be correlated with mammographic findings. Electronically signed and approved by: Jose Hardy D.O.
== END | disposition home or self-care (01) ==
LOC: RADMAMWWP 09:53
PROVIDERS: ATTEND Internal Medicine Hematology & Oncology
DX: Z12.31 Encounter for screening mammogram for malignant neoplasm of breast (principal); C50.919 Malignant neoplasm of unspecified site of unspecified female breast; M85.89 Other specified disorders of bone density and structure, multiple sites; Z78.0 Asymptomatic menopausal state; Z80.3 Family history of malignant neoplasm of breast
CPT/HCPCS: 77063; 77067; 77080

== ENCOUNTER → 2022-11-04 | Outpatient (CLI) | payer MEDICARE | END | disposition home or self-care (01) | LOC: LABWHC1 10:45 | PROVIDERS: ATTEND Nurse Practitioner Adult Health | DX: R06.02 Shortness of breath (principal) | CPT/HCPCS: 36415; 83880 ==

== ENCOUNTER → 2022-12-05 | Outpatient (CLI) | payer MEDICARE ==
--- NOTE | 2022-12-05 10:38 | FL ---
EXAMINATION TYPE: FL sniff test without CXR DATE OF EXAM: 12/05/2022 COMPARISON: NONE HISTORY: R06.09 OTHER FORMS OF DYSPNEA TECHNIQUE: Fluoroscopy. FINDINGS: Fluoroscopic guidance was provided during procedure performed by Dr. Enamorado. A total of 25 seconds of fluoroscopic time was utilized during the procedure and spot images was acquired. Tota l DAP 475.70. There is normal motion of the diaphragm at inspiration and expiration. Normal diaphragmatic motion th at sniffing. IMPRESSION: Normal sniff test
== END | disposition home or self-care (01) ==
LOC: RADUSWWP 09:51
PROVIDERS: ATTEND Internal Medicine Critical Care Medicine
DX: R06.09 Other forms of dyspnea (principal); R06.02 Shortness of breath
CPT/HCPCS: 76000

== ENCOUNTER → 2022-12-09 | Outpatient (CLI) | payer MEDICARE ==
[2022-12-09 19:27] LABS: African American GFR (CKD) 85.4 (60.0-200.0); Blood Urea Nitrogen 17.7 mg/dL (9.0-27.0); Non-African American GFR(CKD) 73.7 (60.0-200.0); Uric Acid 4.5 mg/dL (2.9-7.7)
== END | disposition home or self-care (01) ==
LOC: LABWHC1 11:16
PROVIDERS: ATTEND Podiatrist
DX: M10.9 Gout, unspecified (principal)
CPT/HCPCS: 36415; 82565; 84450; 84460; 84520; 84550

== ENCOUNTER → 2023-01-06 | Outpatient (CLI) | payer MEDICARE ==
--- NOTE | 2023-01-06 11:18 | CT ---
EXAMINATION TYPE: High-resolution CT chest DATE OF EXAM: 01/06/2023 COMPARISON: 06/27/2016 HISTORY: 72-year-old female [id number], Other forms of dyspnea. SOB since Covid June 2022 TECHNIQUE: High-resolution scanning of the chest with 1 mm slice thickness utilizing HRCT technique. Both supine and prone imaging was performed including expiratory view. CT DLP: 221 mGycm Automated exposure control for dose reduction was used. FINDINGS: Postsurgical changes left breast. Heart normal size without pericardial effusion. Convention arch vessel branching anatomy. Aorta normal caliber. No thoracic lymphadenopathy by CT size criteria. Scattered small mediastinal lymph nodes are noted. Mild apical pleural-parenchymal scarring. Some minimal groundglass and tree-in-bud change at the posterior right base is noted, axial image 34. This accentuates on the expiratory view and persists on the prone view. There is an associated 4 mm nodule, axial image 36. No honeycombing, consolidation, or pleural effusion. No bronchiectasis, perilymphatic nodularity, thi ckening of the bronchovascular bundles. Visualized upper abdomen shows cholecystectomy clips. Moderate stool. Bones: Anterior endplate spondylosis mid to lower thoracic spine. IMPRESSION: 1. SOME FOCAL GROUNDGLASS CHANGE AT THE POSTERIOR RIGHT BASE COULD REFLECT A SMALL INFECTIOUS/INFLAMM ATORY FOCUS. AN AREA OF ADENOMATOUS HYPERPLASIA IS ALSO POSSIBLE GIVEN AN ASSOCIATED 4 MM NODULE HERE . POSTINFECTIOUS SCARRING ALSO POSSIBLE. RECOMMEND 6 MONTH FOLLOW-UP CT CHEST TO REASSESS. 2. SOME BIAPICAL PLEURAL-PARENCHYMAL SCARRING. NO SPECIFIC HRCT FINDINGS OF INTERSTITIAL PNEUMONITIS. 3. POSTLUMPECTOMY CHANGES LEFT BREAST.
== END | disposition home or self-care (01) ==
LOC: RADCTMAIN 09:10
PROVIDERS: ATTEND Internal Medicine Critical Care Medicine
DX: J98.4 Other disorders of lung (principal); R06.09 Other forms of dyspnea
CPT/HCPCS: 71250

== ENCOUNTER → 2023-01-30 | Outpatient (CLI) | payer MEDICARE ==
--- NOTE | 2023-02-01 22:29 | MR ---
EXAMINATION TYPE: MR hip LT wo con DATE OF EXAM: 01/30/2023 COMPARISON: Outside radiographs 01/26/2023 HISTORY: 73-year-old female M25.552, Lt Hip pain, limited movement TECHNIQUE: Multiplanar, multisequence images of the left were obtained without IV contrast. FINDINGS: Mild degenerative change at the pubic symphysis. The sacrum and bilateral SI joints appear intact. The hips also appear symmetric and intact without evidence for fracture or AVN. However, there is mild to moderate bilateral joint space narrowing with marginal spurring. At the lef t hip in particular, there is more significant cartilage and joint space narrowing posteriorly. Cysti c change within the subchondral bone of the acetabulum measures up to 1.0 cm here. There are tears of the bilateral superior acetabular dayan with tears extending back into the posteri or superior quadrants. There are small intrasubstance tears at the origin of the right hamstrings. Larger intrasubstance tea rs at the left hamstrings origin measuring 1.3 cm and 0.8 cm. The bilateral rectus femoris origins as well as the iliopsoas and gluteal insertions appear intact. The sciatic nerves show symmetric course, caliber, and signal intensity. IMPRESSION: 1. Moderate left greater than right hip OA. Cartilage and joint space loss particularly along the pos terior aspect of the left hip with subchondral cystic change also present here. 2. Tears of the bilateral superior acetabular dayan extending back into the posterior superior quadra nts. 3. A couple large intrasubstance tears at the left hamstrings origin measuring 1.3 cm and 0.8 cm. Sma ller intrasubstance tears at the right hamstrings origin.
== END | disposition home or self-care (01) ==
LOC: RADMRIMAIN 20:45
PROVIDERS: ATTEND Orthopaedic Surgery
DX: M16.12 Unilateral primary osteoarthritis, left hip (principal)

== ENCOUNTER 2023-03-21 05:44 | Inpatient (IN) | payer MEDICARE ==
--- NOTE | 2023-03-20 08:15 | P.HPOR ---
History of Present Illness H&P Date: 03/20/23 Chief Complaint: Left hip pain The patient's a 73-year-old female presents with progressive left hip pain for the past 1-2 years worsening recently. She's having groin and thigh pain with weightbearing activities. This is causing her to limp. She tried medications without much relief. She notes daily pain that limits her significantly. Review of Systems As per HPI Past Medical History Past Medical History: Cancer, Hearing Disorder / Deafness, Hyperlipidemia, Hypertension, Osteoarthritis (OA), Thyroid Disorder Additional Past Medical History / Comment(s): Breast Cancer 2003, HAD RADIATION. LT EAR [place]. GRAVES DISEASE. HX VERTIGO. . GETS MUSCLE SPASMS IN LEGS IN NOC. AB CAUSES YEAST INFECTIONS. Had 1st Covid vaccine,long haul covid ,gout History of Any Multi-Drug Resistant Organisms: None Reported Past Surgical History: Breast Surgery, Cholecystectomy, Ear Surgery, Hysterectomy, Joint Replacement, Orthopedic Surgery, Tonsillectomy Additional Past Surgical History / Comment(s): Left Lumpectomy X2. LT EAR DRUM REPAIR. RT KNEE SCOPE. MULT EYE SURGERIES. EMERGENCY D&C. LT TKA, BILAT EYE SURGERIES R/T GRAVES DISEASE-HAS STENT IN RT EYE, PAIN CLINIC PROCEDURE. Past Anesthesia/Blood Transfusion Reactions: Postoperative Nausea & Vomiting (PONV) Smoking Status: Former smoker - Past Family History Mother Family Medical History: Cancer Additional Family Medical History / Comment(s): STOMACH CANCER. Sister(s) Family Medical History: Cancer Father Family Medical History: Unable to Obtain Medications and Allergies Home Medications Medication Instructions Recorded Confirmed Type Aspirin 81 mg PO DAILY 11/12/16 03/15/23 History Atorvastatin [Lipitor] 20 mg PO HS 11/12/16 03/15/23 History Levothyroxine Sodium [Synthroid] 137 mcg PO MOTUWETHFR 11/12/16 03/15/23 History Levothyroxine Sodium [Synthroid] 150 mcg PO SUSA 11/12/16 03/15/23 History diazePAM [Valium] 2 mg PO BID PRN 11/12/16 03/15/23 History HYDROcodone/APAP 10-325MG [[place] 1 tab PO TID PRN 07/30/18 03/15/23 History 10-325] lisinopriL [Zestril] 5 mg PO DAILY 07/30/18 03/15/23 History Loratadine [Claritin] 10 mg PO DAILY 07/15/20 03/15/23 History Meclizine [Antivert] 25 mg PO BID 07/15/20 03/15/23 History allopurinoL [Allopurinol] 100 mg PO Q48H 03/15/23 03/15/23 History Allergies Allergy/AdvReac Type Severity Reaction Status Date / Time ibuprofen [From Motrin] Allergy Anaphylaxis Verified 03/15/23 11:33 Sulfa (Sulfonamide Allergy Swelling Verified 03/15/23 11:33 Antibiotics) neomycin AdvReac Unknown eye Verified 03/15/23 11:33 ointment caused itching, burning red eyes Tetracyclines AdvReac Nausea & Verified 03/15/23 11:33 Vomiting PET SCAN DYE Allergy Rash/Hives Uncoded 03/15/23 11:33 Physical Examination - Hip left Gait: antalgic Tenderness with palpation: anterior Pain with motion: internal rotation and hip flexion ROM: flexion: 70 degrees ROM: internal rotation: 5 degrees (With pain) ROM: external rotation: 50 degrees Crepitus with motion: Yes Strength: extension: 5/5 Strength: flexion: 5/5 Strength: abduction: 5/5 Tests: impingement tests: positive Results The patient is a well-developed well-nourished female approximate 5 foot 2, 174 pounds of endomorphic habitus. HEENT exam is nonfocal, neck is supple. She has limited painful range of motion of the left hip. Straight leg raise is negative. Her distal neurovascular appears intact left lower extremity. - Diagnostic results Hip x-ray: image reviewed (AP of the pelvis obtain the office shows severe left hip osteoarthrosis.) Hip MRI: image reviewed (MRI of the left hip shows a labral tear along with degenerative changes.) Assessment and Plan Assessment: Left hip severe osteoarthrosis Plan: I talked to the patient at length regarding her condition along with treatment options. At this point she's quite symptomatic and limited because of pain related to her left hip osteoarthrosis despite previous conservative measures. After thorough discussion she opted to proceed with surgery. We'll plan to proceed with left total hip arthroplasty utilizing an anterior approach. Risks and benefits were discussed at length in layman's terms. We will institute DVT prophylaxis postoperatively.
[~2023-03-21 05:44] MED LIST changes: -DEXAMETHASONE SOD PHOSPHATE 4 MG/ML 1 ML VIAL IV ONE; -HEPARIN SODIUM,PORCINE/PF 5,000 UNIT/0.5 ML SYRINGE SQ PRN; -HYDROmorphone 0.5 MG/0.5 ML SYRINGE IVP PRN; -LACTATED RINGERS 1,000 ML IV SCH; -MIDAZOLAM 2 MG/2 ML VIAL IV PRN; -ONDANSETRON 4 MG/2 ML VIAL IVP ONE; +Pre Op ABX Message 1 EACH MISC MISCELLANE ONE; +TRANEXAMIC 1,000 MG/100ML-NACL 1,000 MG in SALINE 1 100ML.BAG IVPB PRN
[2023-03-21] MEDS ORDERED: MIDAZOLAM 2 MG/2 ML VIAL IV PRN (05:54)
[2023-03-21] MEDS: LACTATED RINGERS 1,000 ML IV SCH (06:49)
[2023-03-21] MEDS: ONDANSETRON 4 MG/2 ML VIAL IVP ONE ×2 (07:01→10:46)
[2023-03-21] MEDS: DEXAMETHASONE SOD PHOSPHATE 4 MG/ML 1 ML VIAL IV ONE ×2 (07:01→10:46)
[2023-03-21] MEDS ORDERED: SCOPOLAMINE 1 MG/72 HR PATCH TRANSDERM ONE (07:07)
[2023-03-21] MEDS ORDERED: SODIUM CHLORIDE 0.9% (PF) 10 ML VIAL ONE (07:41)
[2023-03-21] MEDS ORDERED: MIDAZOLAM 2 MG/2 ML VIAL ONE (07:41)
[2023-03-21] MEDS ORDERED: fentaNYL (PF) 50 MCG/ML 2 ML AMP ONE (07:41)
[2023-03-21] MEDS ORDERED: TRANEXAMIC 1,000 MG/100ML-NACL PREMIX BAG ONE (07:41)
[2023-03-21] MEDS ORDERED: ePHEDrine 50 MG/ML 1 ML VIAL ONE (07:41)
[2023-03-21] MEDS ORDERED: PHENYLEPHRINE-0.9% NACL SYG 1,000 MCG/10 ML SYRINGE ONE (07:41)
[2023-03-21] MEDS ORDERED: PROPOFOL 10 MG/ML 20 ML VIAL IV ONE (07:41)
--- NOTE | 2023-03-21 08:11 | P.ANPRN ---
Procedure Note - Anesthesia - Epidural/Spinal Spinal Time Out Performed: Yes Date of Procedure: 03/21/23 Procedure Start Time: 07:50 Procedure Stop Time: 07:58 Location of Patient: OR Indication: Requested by Surgeon Sedation Type: Sedate with meaningful contact maintained Position: Sitting Needle Guage: 22 Injectate: 1.2 ml 0.75%hyperbaric buiv, t 10 level obtained Blood Aspirated: No Pain Paresthesia on Injection Noted: No Events: Uneventful and Well Tolerated
[2023-03-21] MEDS ORDERED: HYDROcodone/APAP 5-325MG 1 EACH TAB PO PRN (09:47)
[2023-03-21] MEDS ORDERED: MAGNESIUM HYDROXIDE 2,400 MG/30 ML CUP PO PRN (09:47)
[2023-03-21] MEDS ORDERED: HYDROcodone/APAP 7.5-325MG 1 EACH TAB PO PRN (09:47)
[2023-03-21] MEDS ORDERED: NALOXONE 0.4 MG/ML 1 ML VIAL IV PRN (09:47)
[2023-03-21] MEDS ORDERED: HYDROmorphone 0.5 MG/0.5 ML SYRINGE IVP PRN ×2 (09:47)
[2023-03-21] MEDS ORDERED: oxyCODONE-APAP 10-325MG 1 EACH TAB PO PRN (09:51)
--- NOTE | 2023-03-21 09:58 | P.OP ---
Date of Procedure: 03/21/23 Preoperative Diagnosis: Left hip severe osteoarthrosis Postoperative Diagnosis: Same Procedure(s) Performed: Left total hip arthroplastypress-fitanterior approach Implants: Depuy Corail size 13 collared 125 press-fit femoral stem, 54 mm +1/2 cobalt chrome femoral head, 54 mm [place] acetabular shell with neutral polyethylene liner. A 6.5 mm x 25 mm cancellus screw was also placed. Anesthesia: spinal Surgeon: Yeison Lares Gift Officer #1: Niko Gonzalez Estimated Blood Loss (ml): 150 Pathology: other (Femoral head) Condition: stable Disposition: PACU Indications for Procedure: The patient is a 73-year-old female who presents with progressive left hip pain secondary to osteoarthrosis despite conservative measures. He discussion of the risks and benefits of operative intervention versus continued conservative measures was made with patient. She opted to proceed with surgery. Operative risks to include infection, neurovascular injury, fracture, leg length discrepancy, possible instability, possible component loosening/failure and possible need for subsequent procedures was discussed. Informed consent was obtained. Operative Findings: As below Description of Procedure: The patient was brought to the operating room, and after induction of spinal anesthesia was placed supine on the Maura table. Positioning was checked with fluoroscopy. The left hip was then prepped and draped in a normal fashion. A 12 cm incision was then made starting 2 fingerbreadths distal and 3 finger breaths posterior to the ASIS in line with the proximal femur. The skin was incised sharply. Subcutaneous tissues were divided sharply. Electrocautery was used for hemostasis. The fascia was split in line with skin incision. The interval between the sartorius and tensor fascia sudheer was then bluntly developed. The posterior fascia was opened with electrocautery. The lateral circumflex vessels were identified and cauterized prior to sectioning. A retractor was placed along the superior femoral neck as well as the anterior acetabular rim. A wide capsulotomy was performed. The neck cut was then made at a 45 angle to the shaft approximately 1 1/2 cm above the level of the lesser trochanter. The head was extracted. Attention was then paid towards preparing the acetabular. Anterior and posterior retractors were placed. The remaining capsular labral tissue sharply debrided clearly defining the acetabular margins. I began reaming with a 45 mm reamer taking care to initially medialize then reaming at 45 of abduction and 20 of anteversion. Sequential reaming is performed up to 53 mm. A trial 54 mm acetabular shell was inserted in the same orientation and was fully seated. There was good rim fit and stability. Positioning was checked with fluoroscopy. The final 54 mm acetabular shell was inserted again at 45 of abduction and 20 of anteversion. This was fully seated. There was good rim fit and stability. A 6.5 mm x 25 mm cancellous self screw was placed posterior/superior with good purchase. Again fluoroscopy was used to check the adequacy of placement. A neutral polyethylene liner was gently impacted. Care was taken to avoid any soft tissue interposition. Pulsatile lavage was utilized. Attention was then paid towards preparing the proximal femur. The saddle region was cleared of soft tissue. A canal finder was used to find the femoral canal. Sequential broaching was performed up to size 13 taking care to lateralize proximally. A calcar mill was used to fashion the medial calcar. There was good rotational stability. A 125 neck along with a 36 mm +1.5 head was placed. The hip was gently reduced. Fluoroscopy was used to check the adequacy of positioning along with leg lengths. I felt both were good. The hip was gently dislocated. The trial components were removed. The final size 13 collared 125 press-fit femoral stem was inserted parallel to the posterior cortex. This was fully seated and there was good rotational stability. A 36 mm +1.5 head was placed. This was gently impacted. The hip was then gently reduced. Final fluoroscopic view showed adequate placement implant along with bahai of leg length. Stability was checked with 80 of external rotation and 60 of extension of the right hip. The wound was irrigated with sterile lavage. The fascia was closed with running 0 Vicryl suture. There was minimal drainage therefore a deep drain was not placed. The second dose of IV TXA was given. The subcutaneous tissues were reapproximated interrupted 2-0 Vicryl sutures. The skin was reapproximated with 3-0 subcuticular strata fix suture. Skin tape and adhesive was applied. A sterile dressing was applied. The patient was then awoken from sedation and transferred to recovery room in good condition. Blood loss was estimated at 150 mL. No complications were incurred. Sponge and needle counts were correct at the end of the case. Niko TRINH assisted during the major components is case to include exposure, bone resection, implantation, and closure.
[2023-03-21] MEDS: HYDROmorphone 0.5 MG/0.5 ML SYRINGE IVP PRN ×3 (10:13→10:40)
--- NOTE | 2023-03-21 10:38 | XR ---
EXAMINATION TYPE: XR Hip Limited LT DATE OF EXAM: 03/21/2023 10:26 AM INDICATION: Patient age:Female; 73 years old; Reason for study: Status post hip surgery, assess surgical alignment; PH. COMPARISON: Pelvic radiograph 02/02/2023 TECHNIQUE: The left hip was examined in the frontal projection. FINDINGS: Postsurgical changes from total left hip arthroplasty. Hardware appears intact with appropr iate alignment. There is associated soft tissue gas and edema. No acute fracture or dislocation. IMPRESSION: Postsurgical changes from total left hip arthroplasty. Hardware appears intact with appropriate align ment.
[2023-03-21] MEDS ORDERED: LACTATED RINGERS 1,000 ML IV SCH (11:00)
[2023-03-21] MEDS ORDERED: ONDANSETRON 4 MG/2 ML VIAL IVP PRN (11:05)
--- NOTE | 2023-03-21 12:16 | P.CONS ---
History of Present Illness - Reason for Consult Preoperative complication management - History of Present Illness Patient is admitted for left total hip arthroplasty, patient doesn't have any pain. Patient and if you just nausea vomiting abdominal pain dysuria, coughing. REVIEW OF SYSTEMS: CONSTITUTIONAL: No fever, no malaise, no fatigue. HEENT: No recent visual problems or hearing problems. Denied any sore throat. CARDIOVASCULAR: No chest pain, orthopnea, PND, no palpitations, no syncope. PULMONARY: No shortness of breath, no cough, no hemoptysis. GASTROINTESTINAL: No diarrhea, no nausea, no vomiting, no abdominal pain. NEUROLOGICAL: No headaches, no weakness, no numbness. HEMATOLOGICAL: Denies any bleeding or petechiae. GENITOURINARY: Denies any burning micturition, frequency, or urgency. MUSCULOSKELETAL/RHEUMATOLOGICAL: Denies any joint pain, swelling, or any muscle pain. ENDOCRINE: Denies any polyuria or polydipsia. The rest of the 14-point review of systems is negative. PHYSICAL EXAMINATION: GENERAL: The patient is alert and oriented x3, not in any acute distress. Well developed, well nourished. HEENT: Pupils are round and equally reacting to light. EOMI. No scleral icterus. No conjunctival pallor. Normocephalic, atraumatic. No pharyngeal erythema. No thyromegaly. CARDIOVASCULAR: S1 and S2 present. No murmurs, rubs, or gallops. PULMONARY: Chest is clear to auscultation, no wheezing or crackles. ABDOMEN: Soft, nontender, nondistended, normoactive bowel sounds. No palpable organomegaly. MUSCULOSKELETAL: Deferred to orthopedic surgery EXTREMITIES: No cyanosis, clubbing, or pedal edema. NEUROLOGICAL: Gross neurological examination did not reveal any focal deficits. SKIN: No rashes. Assessment and plan -Left hip arthroplasty pain is well-controlled: PT and OT evaluation possibility of discharge tomorrow -Hypertension patient will be resumed on low-dose of lisinopril which she is on at home -Hyperthyroidism -Hyperlipidemia For above-mentioned chronic medical problems patient will be resumed on appropriate home medications DVT prophylaxis: As per primary service Past Medical History Past Medical History: Cancer, Hearing Disorder / Deafness, Hyperlipidemia, Hypertension, Osteoarthritis (OA), Thyroid Disorder Additional Past Medical History / Comment(s): Breast Cancer 2003, HAD RADIATION. LT EAR [place]. GRAVES DISEASE. HX VERTIGO. . GETS MUSCLE SPASMS IN LEGS IN NOC. AB CAUSES YEAST INFECTIONS. Had 1st Covid vaccine,long haul covid ,gout History of Any Multi-Drug Resistant Organisms: None Reported Past Surgical History: Breast Surgery, Cholecystectomy, Ear Surgery, Hysterectomy, Joint Replacement, Orthopedic Surgery, Tonsillectomy Additional Past Surgical History / Comment(s): Left Lumpectomy X2. LT EAR DRUM REPAIR. RT KNEE SCOPE. MULT EYE SURGERIES. EMERGENCY D&C. LT TKA, BILAT EYE SURGERIES R/T GRAVES DISEASE-HAS STENT IN RT EYE, PAIN CLINIC PROCEDURE. Past Anesthesia/Blood Transfusion Reactions: Postoperative Nausea & Vomiting (PONV) Smoking Status: Former smoker - Past Family History Mother Family Medical History: Cancer Additional Family Medical History / Comment(s): STOMACH CANCER. Sister(s) Family Medical History: Cancer Father Family Medical History: Unable to Obtain Medications and Allergies Home Medications Medication Instructions Recorded Confirmed Type Aspirin 81 mg PO DAILY 11/12/16 03/21/23 History Atorvastatin [Lipitor] 20 mg PO HS 11/12/16 03/21/23 History Levothyroxine Sodium [Synthroid] 137 mcg PO MOTUWETHFR 11/12/16 03/21/23 History Levothyroxine Sodium [Synthroid] 150 mcg PO SUSA 11/12/16 03/21/23 History diazePAM [Valium] 2 mg PO BID PRN 11/12/16 03/21/23 History HYDROcodone/APAP 10-325MG [[place] 1 tab PO TID PRN 07/30/18 03/21/23 History 10-325] lisinopriL [Zestril] 5 mg PO DAILY 07/30/18 03/21/23 History Loratadine [Claritin] 10 mg PO DAILY 07/15/20 03/21/23 History Meclizine [Antivert] 25 mg PO BID 07/15/20 03/21/23 History allopurinoL [Allopurinol] 100 mg PO Q48H 03/15/23 03/21/23 History Allergies Allergy/AdvReac Type Severity Reaction Status Date / Time ibuprofen [From Motrin] Allergy Anaphylaxis Verified 03/21/23 06:19 Sulfa (Sulfonamide Allergy Swelling Verified 03/21/23 06:19 Antibiotics) neomycin AdvReac Unknown eye Verified 03/21/23 06:19 ointment caused itching, burning red eyes Tetracyclines AdvReac Nausea & Verified 03/21/23 06:19 Vomiting PET SCAN DYE Allergy Rash/Hives Uncoded 03/21/23 06:19 Physical Exam Vitals: Vital Signs Temp Pulse Pulse Resp BP BP Pulse Ox 03/21/23 11:25 97.6 F 94 17 146/72 97 03/21/23 10:58 83 16 123/62 99 03/21/23 10:43 76 16 125/64 99 03/21/23 10:28 87 16 134/69 99 03/21/23 09:52 96.8 F L 87 16 97/56 99 03/21/23 06:44 98.8 F 95 18 166/80 97 Intake and Output 03/20/23 03/21/23 03/21/23 22:59 06:59 14:59 Intake Total 100 650 Output Total 150 Balance 100 500 Intake: IV 100 650 Output: Estimated Blood Loss 150 Other: Weight 79.7 kg
[2023-03-21] MEDS: HYDROcodone/APAP 10-325MG 1 EACH TAB PO PRN ×2 (15:59→23:44)
--- NOTE | 2023-03-21 16:27 | XR ---
Intraoperative/procedural fluoroscopic services were provided for total left hip arthroplasty. Total fluoroscopy time is 26.1 seconds with a total of 5 submitted images to PACS. Total DAP 0.9090 Gycm2. Please see the operative note for further details.
[2023-03-21] MEDS: allopurinoL 100 MG TAB PO SCH (16:28)
[2023-03-21] MEDS: LEVOTHYROXINE 137 MCG TAB PO SCH (16:30)
[2023-03-21] MEDS ORDERED: SODIUM CHLORIDE 0.9% 500 ML 250 ML IV ONE (18:24)
[2023-03-21] MEDS: SODIUM CHLORIDE 0.9% 1,000 ML IV SCH (19:01)
[2023-03-21] MEDS: ATORVASTATIN 20 MG TAB PO SCH (21:24)
[2023-03-21] MEDS: diazePAM 2 MG TAB PO PRN (21:24)
[2023-03-21] MEDS: SENNOSIDES-DOCUSATE SODIUM 1 EACH TAB PO SCH (21:24)
[2023-03-22] MEDS: HYDROcodone/APAP 10-325MG 1 EACH TAB PO PRN ×3 (04:54→17:24)
[2023-03-22] MEDS: LEVOTHYROXINE 137 MCG TAB PO SCH (06:11)
[2023-03-22] MEDS: SODIUM CHLORIDE 0.9% 1,000 ML IV SCH ×2 (06:13→17:36)
[2023-03-22] MEDS: LACTATED RINGERS 1,000 ML IV SCH (06:13)
[2023-03-22] MEDS ORDERED: lisinopriL 5 MG TAB PO SCH (09:00)
[2023-03-22] MEDS: LORATADINE 10 MG TAB PO SCH (09:18)
[2023-03-22] MEDS: ASPIRIN 81 MG PO SCH (09:18)
[2023-03-22] MEDS: RIVAROXABAN 10 MG TAB PO SCH (09:18)
--- NOTE | 2023-03-22 10:41 | P.PN ---
Subjective Progress Note Date: 03/22/23 Principal diagnosis: Left hip osteoarthritis Patient was seen at bedside this morning sitting up in chair with legs elevated. Dressing is present over the left hip anteriorly. Patient says physical therapy was by this morning and she did get up to the chair. Patient says she d id have a bout of low blood pressure yesterday. Patient mentions this morning when she got up with therapy from the bed she did feel a bit lightheaded. Patient says her pain seems to be managed well at this time. Patient complains mostly of spasms to the left leg just above the knee. Patient says she does have a walker for when she goes home. Patient says her spouse will be old help her out when she does go home. Patient denies any other changes at this time. Patient says she has urinated since surgery. Patient says she has not had bowel movement yet, however, patient says she has been passing gas. Patient denies chest pain, fever, shortness of breath, nausea, vomiting, change in vision, loss of bowel/bladder control Objective - Vital Signs Vital signs: Vital Signs Temp 98.3 F 03/22/23 06:59 Pulse 84 03/22/23 06:59 Resp 16 03/22/23 06:59 BP 102/63 03/22/23 06:59 Pulse Ox 98 03/22/23 06:59 FiO2 Intake & Output 03/21/23 03/22/23 03/22/23 18:59 06:59 18:59 Intake Total 1050 1190 Output Total 150 Balance 900 1190 Weight 79.7 kg Intake: IV 650 Intake, IV Titration 400 950 Amount Lactated Ringers 1,000 ml 350 @ 50 mls/hr IV .Q20H LINDA Rx#:[id number] Sodium Chloride 0.9% 1, 900 000 ml @ 75 mls/hr IV . [id number] LINDA Rx#:[id number] ceFAZolin 2 gm In Sodium 50 50 Chloride 0.9% 50 ml @ 100 mls/hr IVPB Q8HR LINDA Rx# :[id number] Oral 240 Output: Estimated Blood Loss 150 Other: # Voids 1 1 - Exam Left hip: Incision is clean, dry, and intact. The exofin fusion tape is in good condition. There is minimal soft tissue swelling and ecchymosis surrounding the medial and lateral aspects of the incision. Calf is soft, no tenderness with palpation. Plantar flexion, dorsiflexion, EHL, FHL are intact. Sensory exam to light touch throughout the extremity is intact, dorsal pedis pulses 2+. Assessment and Plan Assessment: 1. Left hip osteoarthritis - Postop day 1 status post left total hip arthroplasty Plan: 1. Left hip osteoarthritis - patient stable at bedside this morning. Patient did work with physical therapy this morning and was able to get to the chair from the bed. We will plan for patient to stay one more night for continued evaluation and medicine due to low blood pressure and additional pain control and work with physical therapy. Patient does have a walker at home. Plan for discharge home tomorrow with health services. 2. Appreciate medical management 3. Pain management - [place] 4. GI prophylaxis - senna 5. DVT prophylaxis - Xarelto 6. PT/OT - weightbearing as tolerated with walker 7. Encourage incentive spirometer use 8. Discharge planning - plan for discharge home tomorrow with health services Time with Patient: Less than 30
[2023-03-22 11:56] LABS: Basophils # (A) 0.04 X 10*3/uL (0.00-0.10); Basophils % (A) 0.6 %; Eosinophils # (A) 0.07 X 10*3/uL (0.04-0.35); Eosinophils % (A) 1.1 %; HCT 32.4 % (37.2-46.3); HGB 10.6 d/dL (12.0-15.0); Lymphocytes # (A) 1.83 X 10*3/uL (0.90-5.00); Lymphocytes % (A) 28.3 %; MCH 29.7 pg (27.0-32.0); MCHC 32.7 d/dL (32.0-37.0); MCV 90.8 FL (80.0-97.0); Mean Platelet Volume 12.3 FL (9.5-12.2); Monocytes # (A) 0.74 X 10*3/uL (0.20-1.00); Monocytes % (A) 11.4 %; NRBC Per 100 WBC 0 X 10*3/uL (0.00-0.01); Neutrophils # (A) 3.77 X 10*3/uL (1.80-7.70); Neutrophils % (A) 58.3 %; Platelet Count 168 X 10*3/uL (140-440); RBC 3.57 X 10*6/uL (4.10-5.20); RDW 13.2 % (11.5-14.5); WBC 6.47 X 10*3/uL (4.50-10.00)
--- NOTE | 2023-03-22 12:45 | P.PN ---
Subjective Progress Note Date: 03/22/23 Patient is admitted for left total hip arthroplasty, patient doesn't have any pain. Patient and if you just nausea vomiting abdominal pain dysuria, coughing. 03/22/2023 Patient's postoperative day #1 total left hip arthroplasty evaluated on the medical floor. Patient's blood pressure was found to be low yesterday in the 60 systolic was placed on normal saline at 75mls/hr overnight with blood pressure improved to 100 systolic. We will recommend at this time to hold lisinopril and also on discharge with close monitoring of blood pressure and follow-up with PCP. Orthopedics recommending a course of oral xarelto 10 mg daily for 35 days. On assessment patient does feel flushed in the face after first of xarelto this was brought to nursing attention. Requested orthostatic blood pressure. Review of Systems Constitutional: Denied any fatigue denied any fever. Cardio vascular: denied any chest pain, palpitations Gastrointestinal: denied any nausea, vomiting, diarrhea Pulmonary: Denied any shortness of breath cough Neurologic denied any new focal deficits All inpatient medications were reviewed and appropriate changes in these medications as dictated in the interval history and assessment and plan. PHYSICAL EXAMINATION: GENERAL: The patient is alert and oriented x3, not in any acute distress. Well developed, well nourished. HEENT: Pupils are round and equally reacting to light. EOMI. No scleral icterus. No conjunctival pallor. Normocephalic, atraumatic. No pharyngeal erythema. No thyromegaly. CARDIOVASCULAR: S1 and S2 present. No murmurs, rubs, or gallops. PULMONARY: Chest is clear to auscultation, no wheezing or crackles. ABDOMEN: Soft, nontender, nondistended, normoactive bowel sounds. No palpable organomegaly. MUSCULOSKELETAL: Deferred to orthopedic surgery EXTREMITIES: No cyanosis, clubbing, or pedal edema. NEUROLOGICAL: Gross neurological examination did not reveal any focal deficits. SKIN: No rashes. Assessment and plan -Left hip arthroplasty pain is well-controlled: Patient is having issues with ambulation and moving the left leg, PT/OT following -Hypertension Patient was hypotensive overnight -Graves disease -Hyperlipidemia -Anxiety/Depression -Former Smoker DVT prophylaxis: As per primary service GI prophylaxis Full Code Plan Patient will continue to be hydrated overnight and recommending to check postural blood pressure changes. Lisinopril is being held at this time. Patient continues on pain management and bowel regimen not passing gas yet after surgery. PT/OT on board. The impression and plan of care has been dictated by Tesha Mims, Nurse Practitioner as directed. Dr. Bertha MD I have performed a history and physical examination and medical decision making of this patient, discussed the same with the dictator, and agree with the dictators assessment and plan as written, documented as a scribe. Based on total visit time, I have performed more than 50% of this visit. Objective - Vital Signs Vital signs: Vital Signs Temp 98.3 F 03/22/23 06:59 Pulse 84 03/22/23 06:59 Resp 16 03/22/23 06:59 BP 102/63 03/22/23 06:59 Pulse Ox 98 03/22/23 06:59 FiO2 Intake & Output 03/21/23 03/22/23 03/22/23 18:59 06:59 18:59 Intake Total 1050 1190 Output Total 150 Balance 900 1190 Weight 79.7 kg Intake: IV 650 Intake, IV Titration 400 950 Amount Lactated Ringers 1,000 ml 350 @ 50 mls/hr IV .Q20H LINDA Rx#:[id number] Sodium Chloride 0.9% 1, 900 000 ml @ 75 mls/hr IV . [id number] LINDA Rx#:[id number] ceFAZolin 2 gm In Sodium 50 50 Chloride 0.9% 50 ml @ 100 mls/hr IVPB Q8HR LINDA Rx# :[id number] Oral 240 Output: Estimated Blood Loss 150 Other: # Voids 1 1 - Labs CBC & Chem 7: 03/22/23 06:39 Assessment and Plan Time with Patient: Less than 30
[2023-03-22 14:47] LABS: T4, Free (Free Thyroxine) 2.15 ng/dL (0.78-2.19)
[2023-03-22] MEDS: ATORVASTATIN 20 MG TAB PO SCH (20:17)
[2023-03-22] MEDS: SENNOSIDES-DOCUSATE SODIUM 1 EACH TAB PO SCH (20:17)
[2023-03-22] MEDS: diazePAM 2 MG TAB PO PRN (20:17)
[2023-03-23] MEDS: HYDROcodone/APAP 10-325MG 1 EACH TAB PO PRN (01:15)
[2023-03-23] MEDS: LEVOTHYROXINE 137 MCG TAB PO SCH (06:14)
[2023-03-23] MEDS: LACTATED RINGERS 1,000 ML IV SCH (06:14)
[2023-03-23] MEDS: ASPIRIN 81 MG PO SCH (07:51)
[2023-03-23] MEDS: RIVAROXABAN 10 MG TAB PO SCH (07:51)
[2023-03-23] MEDS: LORATADINE 10 MG TAB PO SCH (07:51)
[2023-03-23] MEDS: SODIUM CHLORIDE 0.9% 1,000 ML IV SCH (12:14)
[2023-03-23] MEDS: allopurinoL 100 MG TAB PO SCH (12:51)
--- NOTE | 2023-03-23 13:08 | P.CRDCN ---
History of Present Illness History of present illness: HISTORY OF PRESENT ILLNESS: This is a 73-year-old female with a past medical history significant for long haul Covid, syncope, orthostatic hypotension, hypertension, and hyperlipidemia. Patient follows in the office with Dr. Watts. We have been asked to see the percy hernandez in consultation for orthostatic hypotension. Patient examined at the bedside. Patient is status post left total hip arthroplasty on 03/21/2023. Yesterday, the patient was having issues with orthostatic hypotension with systolic blood pressures dropping into the 60s. Patient's lisinopril was discontinued. The patient continues to have repeat orthostatic blood pressures today with beginning blood pressures in the 120s and dropping into the 90s. She reports having dizziness, nausea, and feeling flushed when she stands up. She was unable to work with physical therapy today because of this. The patient does have a history of orthostatic hypotension. She states she has episodes about 2 or 3 times a year. She does report an episode of syncope and June 2022. At the time of examination, she denies chest pain or pressure. She denies shortness of breath. Denies dizziness or lightheadedness while laying in bed. She is currently receiving an IV fluid bolus. * Laboratory data: WBC 6.47. Hemoglobin 10.6. Platelet count 168. TSH 0.015. Free T4 2 0.15. No BMP available at the time of dictation * Current home cardiac medications include lisinopril 5 mg daily and Lipitor 20 mg at night, * Most recent echocardiogram obtained in August 2022 revealed normal ejection fraction, mild MR, mild TR * Patient underwent stress testing and August 2022 with no evidence of stress-induced ischemia REVIEW OF SYSTEMS: At the time of my exam: CONSTITUTIONAL: Denies fever or chills. HEENT: Denies blurred vision, vision changes, or eye pain. Denies hemoptysis CARDIOVASCULAR: Denies chest pain. Denies orthopnea. Denies PND. Denies palpitations RESPIRATORY: Denies shortness of breath. GASTROINTESTINAL: Denies abdominal pain. Denies nausea or vomiting. HEMATOLOGIC: Denies bleeding disorders. GENITOURINARY: Denies any blood in urine. SKIN: Denies pruitis. Denies rash. PHYSICAL EXAM: VITAL SIGNS: Reviewed. GENERAL: Well-developed in no acute distress. HEENT: Head is normocephalic. Pupils are equal, round. Sclerae anicteric. Mucous membranes of the mouth are moist. Neck supple. No JVD or thyromegaly LUNGS: Respirations even and unlabored. Lungs essentially clear to auscultation bilaterally. HEART: Regular rate and rhythm. S1 and S2 heard. Systolic murmur noted ABDOMEN: Soft. Nondistended. Nontender. EXTREMITIES: Normal range of motion. No clubbing or cyanosis. Peripheral pulses intact. No lower extremity edema NEUROLOGIC: Awake and alert. Oriented x 3. ASSESSMENT: Osteoarthritis, status post left total hip arthroplasty, 03/21/2023 Orthostatic hypotension, improving History of orthostatic hypotension with previous syncope History of hypertension Hyperlipidemia Long haul Covid PLAN: Patient with orthostatic hypotension post total hip arthroplasty. Patients lisinopril has been discontinued. Her orthostatics are improved compared to yesterday. She is currently receiving an IV fluid bolus. No changes to the patient's medication regimen at this time. Continue to monitor orthostatic blood pressures and repeat in a.m. Obtain 2-D echo to assess cardiac structure and function. Further recommendations pending patient's course Nurse practitioner note has been reviewed by physician. Signing provider agrees with the documented findings, assessment, and plan of care. Past Medical History Past Medical History: Cancer, Hearing Disorder / Deafness, Hyperlipidemia, Hypertension, Osteoarthritis (OA), Thyroid Disorder Additional Past Medical History / Comment(s): Breast Cancer 2003, HAD RADIATION. LT EAR BARROW. GRAVES DISEASE. HX VERTIGO. . GETS MUSCLE SPASMS IN LEGS IN NOC. AB CAUSES YEAST INFECTIONS. Had 1st Covid vaccine,long haul covid ,gout History of Any Multi-Drug Resistant Organisms: None Reported Past Surgical History: Breast Surgery, Cholecystectomy, Ear Surgery, Hysterectomy, Joint Replacement, Orthopedic Surgery, Tonsillectomy Additional Past Surgical History / Comment(s): Left Lumpectomy X2. LT EAR DRUM REPAIR. RT KNEE SCOPE. MULT EYE SURGERIES. EMERGENCY D&C. LT TKA, BILAT EYE SURGERIES R/T GRAVES DISEASE-HAS STENT IN RT EYE, PAIN CLINIC PROCEDURE. Past Anesthesia/Blood Transfusion Reactions: Postoperative Nausea & Vomiting (PONV) Smoking Status: Former smoker - Past Family History Mother Family Medical History: Cancer Additional Family Medical History / Comment(s): STOMACH CANCER. Sister(s) Family Medical History: Cancer Father Family Medical History: Unable to Obtain Medications and Allergies Home Medications Medication Instructions Recorded Confirmed Type Atorvastatin [Lipitor] 20 mg PO HS 11/12/16 03/21/23 History Levothyroxine Sodium [Synthroid] 137 mcg PO [id number] 11/12/16 03/21/23 History Levothyroxine Sodium [Synthroid] 150 mcg PO SUSA 11/12/16 03/21/23 History diazePAM [Valium] 2 mg PO BID PRN 11/12/16 03/21/23 History HYDROcodone/APAP 10-325MG [[place] 1 tab PO TID PRN 07/30/18 03/21/23 History 10-325] Loratadine [Claritin] 10 mg PO DAILY 07/15/20 03/21/23 History Meclizine [Antivert] 25 mg PO BID 07/15/20 03/21/23 History allopurinoL 100 mg PO Q48H 03/15/23 03/21/23 History Sennosides-Docusate Sodium 2 each PO HS #30 tab 03/22/23 Rx [Senokot-S] Aspirin 325 mg PO BID 30 Days #60 tab 03/23/23 Rx Allergies Allergy/AdvReac Type Severity Reaction Status Date / Time ibuprofen [From Motrin] Allergy Anaphylaxis Verified 03/21/23 06:19 Sulfa (Sulfonamide Allergy Swelling Verified 03/21/23 06:19 Antibiotics) neomycin AdvReac Unknown eye Verified 03/21/23 06:19 ointment caused itching, burning red eyes Tetracyclines AdvReac Nausea & Verified 03/21/23 06:19 Vomiting PET SCAN DYE Allergy Rash/Hives Uncoded 03/21/23 06:19 Physical Exam Vitals: Vital Signs Temp Pulse Resp BP BP Pulse Ox 03/23/23 12:38 97/62 03/23/23 10:23 96 03/23/23 06:55 98.7 F 101 H 18 121/72 97 03/23/23 04:17 99.1 F 03/23/23 02:28 99.9 F H 108 H 03/23/23 01:23 100.3 F H 111 H 18 130/72 95 03/22/23 19:17 98.4 F 74 16 101/61 95 03/22/23 13:40 98.9 F 113 H 18 148/88 98 Intake and Output 03/22/23 03/23/23 03/23/23 22:59 06:59 14:59 Intake Total 750 1080 59 Balance 750 1080 59 Intake: Intake, IV Titration 750 600 Amount Sodium Chloride 0.9% 1, 300 600 000 ml @ 50 mls/hr IV . Q20H [facility] Rx#:[id number] Sodium Chloride 0.9% 1, 450 000 ml @ 75 mls/hr IV . [id number] [facility] Rx#:[id number] Oral 480 59 Other: # Voids 1 1 Results 03/22/23 06:39 Current Medications Generic Name Dose Route Start Last Admin Trade Name Freq PRN Reason Stop Dose Admin Hydrocodone Bitart/Acetaminophen 1 each 03/21/23 09:47 03/23/23 11:54 Hydrocodone/Apap 7.5-325mg 1 Each Tab PO 04/20/23 09:48 1 each Q6H PRN Administration Pain Scale 1-5 Hydrocodone Bitart/Acetaminophen 1 each 03/21/23 09:53 03/23/23 01:15 Hydrocodone/Apap 10-325mg 1 Each Tab PO 04/20/23 09:54 1 each Q6HR PRN Administration Pain Scale 6 to 10 Allopurinol 100 mg 03/21/23 13:00 03/23/23 12:51 Allopurinol 100 Mg Tab PO 100 mg Q48H [facility] Administration Aspirin 81 mg 03/22/23 09:00 03/23/23 07:51 Aspirin 81 Mg PO 81 mg DAILY [facility] Administration Atorvastatin Calcium 20 mg 03/21/23 21:00 03/22/23 20:17 Atorvastatin 20 Mg Tab PO 20 mg HS [facility] Administration Diazepam 2 mg 03/21/23 21:03 03/22/23 20:17 Diazepam 2 Mg Tab PO 2 mg BID PRN Administration sleep Hydromorphone HCl 0.25 mg 03/21/23 09:47 Hydromorphone 0.5 Mg/0.5 Ml Syringe IVP 04/20/23 09:48 Q3HR PRN Pain Scale 4 to 6 Hydromorphone HCl 0.5 mg 03/21/23 09:47 Hydromorphone 0.5 Mg/0.5 Ml Syringe IVP 04/20/23 09:48 Q3HR PRN Pain Scale 7 to 10 Lactated Ringer's 1,000 mls @ 20 mls/hr 03/21/23 05:54 03/23/23 06:14 Lactated Ringers IV 04/20/23 05:55 Not Given .Q24H [facility] Sodium Chloride 1,000 mls @ 50 mls/hr 03/22/23 15:15 03/23/23 12:14 Saline 0.9% IV Not Given .Q20H [facility] Levothyroxine Sodium 137 mcg 03/21/23 12:15 03/23/23 06:14 Levothyroxine 137 Mcg Tab PO 137 mcg [id number] [facility] Administration Levothyroxine Sodium 150 mcg 03/25/23 06:30 Levothyroxine 75 Mcg Tab PO [id number] [facility] Loratadine 10 mg 03/22/23 09:00 03/23/23 07:51 Loratadine 10 Mg Tab PO 10 mg DAILY [facility] Administration Magnesium Hydroxide 2,400 mg 03/21/23 09:47 Magnesium Hydroxide 2,400 Mg/30 Ml Cup PO 04/20/23 09:48 DAILY PRN Constipation Naloxone HCl 0.2 mg 03/21/23 09:47 Naloxone 0.4 Mg/Ml 1 Ml Vial IV 04/20/23 09:48 Q2M PRN Opioid Reversal Ondansetron HCl 4 mg 03/21/23 11:05 03/23/23 01:16 Ondansetron 4 Mg/2 Ml Vial IVP 4 mg Q6HR PRN Administration Nausea And Vomiting Rivaroxaban 10 mg 03/22/23 09:00 03/23/23 07:51 Rivaroxaban 10 Mg Tab PO 04/26/23 09:01 10 mg DAILY [facility] Administration Protocol Senna/Docusate Sodium 2 each 03/21/23 21:00 03/22/23 20:17 Sennosides-Docusate Sodium 1 Each Tab PO 04/20/23 21:01 2 each HS [facility] Administration Intake and Output 03/22/23 03/23/23 03/23/23 22:59 06:59 14:59 Intake Total 750 1080 59 Balance 750 1080 59 Intake: Intake, IV Titration 750 600 Amount Sodium Chloride 0.9% 1, 300 600 000 ml @ 50 mls/hr IV . Q20H [facility] Rx#:[id number] Sodium Chloride 0.9% 1, 450 000 ml @ 75 mls/hr IV . [id number] [facility] Rx#:[id number] Oral 480 59 Other: # Voids 1 1 03/22/23 06:39
[2023-03-23 13:45] LABS: Potassium 3.9 mmol/L (3.5-5.1)
[2023-03-23 13:46] LABS: African American GFR (CKD) >90 (>60 ml/min/1.73 sqM); Anion Gap 4 mmol/L; Blood Urea Nitrogen 10 mg/dL (7-17); Calcium 7.6 mg/dL (8.4-10.2); Carbon Dioxide 24 mmol/L (22-30); Chloride 105 mmol/L (98-107); Glucose 161 mg/dL (74-99); Non-African American GFR(CKD) 85 (>60 ml/min/1.73 sqM); Sodium 133 mmol/L (137-145)
[2023-03-23 15:19] LABS: Appearance,Urine Clear (Clear); Bilirubin,Urine Negative (Negative); Blood,Urine Negative (Negative); Color,Urine Colorless; Glucose,Urine (UA) Negative (Negative); Ketones,Urine Negative (Negative); Leukocyte Esterase,Urine Negative (Negative); Nitrite,Urine Negative (Negative); PH, Urine 6.5 (5.0-8.0); Protein,Urine Negative (Negative); Specific Gravity,Urine 1.004 (1.001-1.035); Urobilinogen,Urine <2.0 mg/dL (<2.0)
--- NOTE | 2023-03-23 15:34 | P.PN ---
Subjective Progress Note Date: 03/23/23 Patient is admitted for left total hip arthroplasty, patient doesn't have any pain. Patient and if you just nausea vomiting abdominal pain dysuria, coughing. 03/22/2023 Patient's postoperative day #1 total left hip arthroplasty evaluated on the medical floor. Patient's blood pressure was found to be low yesterday in the 60 systolic was placed on normal saline at 75mls/hr overnight with blood pressure improved to 100 systolic. We will recommend at this time to hold lisinopril and also on discharge with close monitoring of blood pressure and follow-up with PCP. Orthopedics recommending a course of oral xarelto 10 mg daily for 35 days. On assessment patient does feel flushed in the face after first of xarelto this was brought to nursing attention. Requested orthostatic blood pressure. 03/23/2023 Patient is evaluated today on the medical floor postoperative day #2 left total hip arthroplasty she continues to report some heaviness in her left leg although she is getting up with a walker and has been cleared from with physical therapy. She was unable to afford Xarelto and discussed with orthopedics who is recommending aspirin 325 mg twice a day for 3 days and this has been added to the discharge. Blood pressure has improved up to the 120s systolic however patient does have positive orthostatic blood pressures with her blood pressure dropping to 97/62 with ambulation and she does report that she is feeling dizzy with standing. Her lisinopril has been held and she is to maintain a normal sinus most per hour. We will give patient a 1 L fluid bolus. Her lungs are currently clear and she is saturating well on room air. She does have a T-max of 100.3 overnight this is likely due to postoperative atelectasis however patient is using her incentive spirometer we will check a chest x-ray urinalysis to rule out infection. Discharge is being held due to low blood pressures and cardiac evaluation. Review of Systems Constitutional: Denied any fatigue denied any fever. Cardio vascular: denied any chest pain, palpitations Gastrointestinal: denied any nausea, vomiting, diarrhea Pulmonary: Denied any shortness of breath cough Neurologic denied any new focal deficits. Generalized weakness and dizziness lightheadedness with standing. All inpatient medications were reviewed and appropriate changes in these medications as dictated in the interval history and assessment and plan. PHYSICAL EXAMINATION: GENERAL: The patient is alert and oriented x3, not in any acute distress. Well developed, well nourished. HEENT: Pupils are round and equally reacting to light. EOMI. No scleral icterus. No conjunctival pallor. Normocephalic, atraumatic. No pharyngeal erythema. No thyromegaly. CARDIOVASCULAR: S1 and S2 present. No murmurs, rubs, or gallops. PULMONARY: Chest is clear to auscultation, no wheezing or crackles. ABDOMEN: Soft, nontender, nondistended, normoactive bowel sounds. No palpable organomegaly. MUSCULOSKELETAL: Deferred to orthopedic surgery EXTREMITIES: No cyanosis, clubbing, or pedal edema. NEUROLOGICAL: Gross neurological examination did not reveal any focal deficits. SKIN: No rashes. Assessment and plan -Left hip arthroplasty postoperative day #2 pain is well-controlled: Patient is having issues with ambulation and moving the left leg, PT/OT following -Postoperative hypotension and positive orthostatic changes -Dizziness and lightheadedness secondary to above -Graves disease -Hyperlipidemia -Anxiety/Depression -Former Smoker DVT prophylaxis: As per primary service GI prophylaxis Full Code Plan Patient will continue to be hydrated normal saline at 75 and given a 1L fluid bolus today. Lisinopril is being held at this time. Cardiology consultation and echocardiogram ordered. Check urinalysis and chest xray. Patient continues on pain management and bowel regimen, passing gas but no BM yet. Continue to encourage incentive spirometer 10 x an hour while awake. The impression and plan of care has been dictated by Tesha Mims Nurse Practitioner as directed. Dr. Bertha MD I have performed a history and physical examination and medical decision making of this patient, discussed the same with the dictator, and agree with the dictators assessment and plan as written, documented as a scribe. Based on total visit time, I have performed more than 50% of this visit. Objective - Vital Signs Vital signs: Vital Signs Temp 98.7 F 03/23/23 06:55 Pulse 101 H 03/23/23 06:55 Resp 18 03/23/23 06:55 BP 121/72 03/23/23 06:55 Pulse Ox 97 03/23/23 06:55 FiO2 Intake & Output 03/22/23 03/23/23 03/23/23 18:59 06:59 18:59 Intake Total 750 1080 59 Balance 750 1080 59 Intake: Intake, IV Titration 750 600 Amount Sodium Chloride 0.9% 1, 300 600 000 ml @ 50 mls/hr IV . Q20H [facility] Rx#:[id number] Sodium Chloride 0.9% 1, 450 000 ml @ 75 mls/hr IV . [id number] [facility] Rx#:[id number] Oral 480 59 Other: # Voids 1 1 - Labs CBC & Chem 7: 03/22/23 06:39 03/23/23 13:14 Labs: Abnormal Lab Results - Last 24 Hours (Table) 03/22/23 03/22/23 Range/Units 06:39 06:39 RBC 3.57 L (4.10-5.20) X 10*6/uL Hgb 10.6 L (12.0-15.0) d/dL Hct 32.4 L (37.2-46.3) % MPV 12.3 H (9.5-12.2) FL TSH <0.015 L (0.465-4.680) mIU/L Assessment and Plan Time with Patient: Less than 30
--- NOTE | 2023-03-23 18:04 | CA ---
Transthoracic Echo Report Name: Ramya Castellano Age: 73 Gender: F : 1950 Exam Date: 03/23/2023 14:16 Exam Location: [place] [facility] Ht (in): 65 Wt (lb): 175 Ordering Physician: Emerita Holman Attending/Referring Phys: [id number], [employer] Yang Payton Procedure CPT: Indications: LV function, orthostatic hypotension Cardiac Hx: Technical Quality: Fair Contrast 1: Total Dose (mL): Contrast 2: Total Dose (mL): MEASUREMENTS (Male / Female) Normal Values 2D ECHO LV Diastolic Diameter PLAX 1.1 cm 4.2 - 5.9 / 3.9 - 5.3 cm IVS Diastolic Thickness 1.1 cm 0.6 - 1.0 / 0.6 - 0.9 cm LVPW Diastolic Thickness 3.7 cm 0.6 - 1.0 / 0.6 - 0.9 cm LV Relative Wall Thickness 4.5 RV Internal Dim ED PLAX 2.6 cm LVOT Diameter 2.0 cm Aortic Root Diameter 3.0 cm LA Systolic Diameter LX 2.6 cm 3.0 - 4.0 / 2.7 - 3.8 cm LV Diastolic Volume MOD BP 37.2 cm??? 67 - 155 / 56 - 104 cm??? LV Systolic Volume MOD BP 11.8 cm??? 22 - 58 / 19 - 49 cm??? LV Ejection Fraction MOD BP 68.4 % >= 55 % LV Cardiac Index MOD BP 1264.8 cm???/min???m??? LV Diastolic Volume MOD 4C 42.3 cm??? LV Systolic Volume MOD 4C 10.6 cm??? LV Ejection Fraction MOD 4C 74.9 % LV Cardiac Index MOD 4C 1577.6 cm???/min???m??? LV Diastolic Length 4C 6.4 cm LV Systolic Length 4C 5.4 cm LV Diastolic Volume MOD 2C 30.9 cm??? LV Systolic Volume MOD 2C 12.9 cm??? LV Ejection Fraction MOD 2C 58.3 % LV Cardiac Index MOD 2C 897.1 cm???/min???m??? LV Diastolic Length 2C 6.0 cm LV Systolic Length 2C 5.3 cm LA Volume 36.1 cm??? 18 - 58 / 22 - 52 cm??? DOPPLER AV Peak Velocity 127.5 cm/s AV Peak Gradient 6.5 mmHg LVOT Peak Velocity 109.3 cm/s LVOT Peak Gradient 4.8 mmHg AV Area Cont Eq pk 2.6 cm??? MV Peak Velocity 108.8 cm/s MV Peak Gradient 4.7 mmHg MV Mean Velocity 55.9 cm/s MV Mean Gradient 1.6 mmHg MV Velocity Time Integral 24.5 cm MR Peak Velocity 236.1 cm/s MR Peak Gradient 22.3 mmHg Mitral E Point Velocity 75.2 cm/s Mitral A Point Velocity 97.1 cm/s Mitral E to A Ratio 0.8 MV Deceleration Time 154.1 ms MV E' Velocity 10.4 cm/s Mitral E to MV E' Ratio 7.2 TR Peak Velocity 224.4 cm/s TR Peak Gradient 20.1 mmHg Right Ventricular Systolic Press 25.4 mmHg PV Peak Velocity 102.5 cm/s PV Peak Gradient 4.2 mmHg FINDINGS Left Ventricle Normal LV size and wall thickness. Left ventricular ejection fraction is estimated at 55-60 %.normal left ventricular wall motion. Normal left ventricular diastolic filling pattern. Right Ventricle Normal right ventricular size. RVSP= 30mmhg. Right Atrium Normal right atrial size. Left Atrium Normal left atrial size. Mitral Valve Structurally normal mitral valve. Mild MR. Aortic Valve Trileaflet aortic valve. No aortic valve stenosis or regurgitation. Tricuspid Valve Tricuspid valve not well visualized. Mild TR Pulmonic Valve Pulmonic valve not well visualized. Trace PI. Pericardium Normal pericardium. Aorta Normal size aortic root and proximal ascending aorta. CONCLUSIONS Technically difficult study. 1. Normal left ventricular size and systolic function 2. Mild mitral and tricuspid regurgitation with no evidence of pulmonary hypertension Previewed by: Dr. Elmer Watts MD (Electronically Signed) Final Date: 23 March 2023 18:03
[2023-03-23] MEDS: SENNOSIDES-DOCUSATE SODIUM 1 EACH TAB PO SCH (21:43)
[2023-03-23] MEDS: ATORVASTATIN 20 MG TAB PO SCH (21:43)
[2023-03-23] MEDS: diazePAM 2 MG TAB PO PRN (23:32)
--- NOTE | 2023-03-24 06:37 | P.PN ---
Subjective Progress Note Date: 03/23/23 Principal diagnosis: Left Hip Osteoarthritis Patient was seen and examined this afternoon sitting up in chair with legs elevated. Dressing is present over the left hip anteriorly. Patient reports that her pain in her left hip is managed. She does note that her left thigh feels weak and that she has some spasms and a heaviness feeling to the extremity. Patient has been working with PT and states she feels she was not ready to attempt stairs today. She has been having episodes of decreased blood pressure when ambulating and feeling lightheaded. Patient reports she is unable to afford the copay for Xarelto, recommend Aspirin 325mg BID for 30 days. She says her spouse will be able to help her out when she does go home. Patient denies any other changes at this time. Patient says she has not had bowel movement yet, however, patient says she has been passing gas. Patient denies chest pain, fever, shortness of breath, nausea, vomiting, change in vision, loss of bowel/bladder control Objective - Vital Signs Vital signs: Vital Signs Temp 98.7 F 03/23/23 06:55 Pulse 101 H 03/23/23 06:55 Resp 18 03/23/23 06:55 BP 121/72 03/23/23 06:55 Pulse Ox 96 03/23/23 10:23 FiO2 Intake & Output 03/22/23 03/23/23 03/23/23 18:59 06:59 18:59 Intake Total 750 1080 59 Balance 750 1080 59 Intake: Intake, IV Titration 750 600 Amount Sodium Chloride 0.9% 1, 300 600 000 ml @ 50 mls/hr IV . Q20H [facility] Rx#:[id number] Sodium Chloride 0.9% 1, 450 000 ml @ 75 mls/hr IV . [id number] [facility] Rx#:[id number] Oral 480 59 Other: # Voids 1 1 - Exam Left hip: Incision is clean, dry, and intact. The exofin fusion tape is in good condition. There is minimal soft tissue swelling and ecchymosis surrounding the medial and lateral aspects of the incision. Calf is soft, no tenderness with palpation. Plantar flexion, dorsiflexion, EHL, FHL are intact. Sensory exam to light touch throughout the extremity is intact, dorsal pedis pulses 2+. - Labs CBC & Chem 7: 03/22/23 06:39 03/23/23 13:14 Labs: Abnormal Lab Results - Last 24 Hours (Table) 03/22/23 Range/Units 06:39 TSH <0.015 L (0.465-4.680) mIU/L Assessment and Plan Assessment: 1. Left hip osteoarthritis - Postop day 2 status post left total hip arthroplasty Plan: 2. Appreciate medical management 3. Pain management - [place] 4. GI prophylaxis - senna 5. DVT prophylaxis - Xarelto 6. PT/OT - weightbearing as tolerated with walker 7. Encourage incentive spirometer use 8. Discharge planning - plan for discharge home with health services within the next 24 hrs
[2023-03-24] MEDS: HYDROcodone/APAP 10-325MG 1 EACH TAB PO PRN ×2 (06:54→12:02)
[2023-03-24] MEDS: LEVOTHYROXINE 137 MCG TAB PO SCH (06:59)
--- NOTE | 2023-03-24 08:04 | P.PN ---
Subjective Progress Note Date: 03/24/23 Principal diagnosis: Left Hip Osteoarthritis Patient was seen and examined this morning. Patient is laying comfortably in bed. Dressing is present over the left hip anteriorly. Patient reports that her pain in her left hip is managed. She continues to report pain and weakness in her left thigh. She continues to be having episodes of decreased blood pressure when ambulating and feeling lightheaded. She says her spouse will be able to help her out when she does go home. Patient denies any other changes at this time. Patient says she has not had bowel movement yet, however, patient says she has been passing gas. Patient denies chest pain, fever, shortness of breath, nausea, vomiting, change in vision, loss of bowel/bladder control. Patient is cleared from Orthopedic standpoint for discharge, no further recommendations. Objective - Vital Signs Vital signs: Vital Signs Temp 99.6 F 03/24/23 01:47 Pulse 107 H 03/24/23 01:47 Resp 16 03/24/23 01:47 BP 126/72 03/24/23 01:47 Pulse Ox 91 L 03/24/23 01:47 FiO2 Intake & Output 03/23/23 03/24/23 03/24/23 18:59 06:59 18:59 Intake Total 59 Balance 59 Intake: Oral 59 Other: # Voids 3 1 - Exam Left hip: Incision is clean, dry, and intact. The exofin fusion tape is in good condition. There is minimal soft tissue swelling and ecchymosis surrounding the medial and lateral aspects of the incision. Calf is soft, no tenderness with palpation. Plantar flexion, dorsiflexion, EHL, FHL are intact. Sensory exam to light touch throughout the extremity is intact, dorsal pedis pulses 2+. - Labs CBC & Chem 7: 03/22/23 06:39 03/23/23 13:14 Labs: Abnormal Lab Results - Last 24 Hours (Table) 03/23/23 Range/Units 13:14 Sodium 133 L (137-145) mmol/L Glucose 161 H (74-99) mg/dL Calcium 7.6 L (8.4-10.2) mg/dL Assessment and Plan Assessment: 1. Left hip osteoarthritis - Postop day 3 status post left total hip arthroplasty Plan: 2. Appreciate medical management 3. Pain management - [place] 4. GI prophylaxis - senna 5. DVT prophylaxis - Xarelto, recommend ASA 325mg BID for 30d at discharge. 6. PT/OT - weightbearing as tolerated with walker 7. Encourage incentive spirometer use 8. Discharge planning - plan for discharge home with health services within the next 24 hrs, Patient is cleared from Orthopedic standpoint for discharge.
[2023-03-24 08:08] VITALS: PULSE 90; RESP 18; TEMP 98.7
--- NOTE | 2023-03-24 08:53 | XR ---
EXAMINATION TYPE: XR chest 2V DATE OF EXAM: 03/24/2023 COMPARISON: NONE TECHNIQUE: PA and lateral views submitted. HISTORY: Fever FINDINGS: The lungs are clear and there is no pneumothorax, pleural effusion, or focal pneumonia. Heart size normal and no overt failure. Ectasia of the aorta. Osseous structures demonstrate hypertrophic and degenerative changes of the spine. AC joint arthropat hy. Correlate for emphysema. Surgical clips in the abdomen. IMPRESSION: 1. No acute process.
[2023-03-24 10:00] LABS: African American GFR (CKD) >90 (>60 ml/min/1.73 sqM); Anion Gap 5 mmol/L; Blood Urea Nitrogen 9 mg/dL (7-17); Calcium 7.8 mg/dL (8.4-10.2); Carbon Dioxide 23 mmol/L (22-30); Chloride 104 mmol/L (98-107); Glucose 122 mg/dL (74-99); Non-African American GFR(CKD) >90 (>60 ml/min/1.73 sqM); Sodium 132 mmol/L (137-145)
[2023-03-24] MEDS: LACTATED RINGERS 1,000 ML IV SCH (10:19)
[2023-03-24] MEDS: SODIUM CHLORIDE 0.9% 1,000 ML IV SCH (10:19)
[2023-03-24] MEDS: RIVAROXABAN 10 MG TAB PO SCH (10:24)
[2023-03-24] MEDS: LORATADINE 10 MG TAB PO SCH (10:24)
[2023-03-24] MEDS: ASPIRIN 81 MG PO SCH (10:24)
--- NOTE | 2023-03-24 10:48 | P.PN ---
Subjective HISTORY OF PRESENT ILLNESS: This is a 73-year-old female with a past medical history significant for long haul Covid, syncope, orthostatic hypotension, hypertension, and hyperlipidemia. Patient follows in the office with Dr. Watts. We have been asked to see the patient in consultation for orthostatic hypotension. Patient examined at the bedside. Patient is status post left total hip arthroplasty on 03/21/2023. Yesterday, the patient was having issues with orthostatic hypotension with systolic blood pressures dropping into the 60s. Patient's lisinopril was discontinued. The patient continues to have repeat orthostatic blood pressures today with beginning blood pressures in the 120s and dropping into the 90s. She reports having dizziness, nausea, and feeling flushed when she stands up. She was unable to work with physical therapy today because of this. The patient does have a history of orthostatic hypotension. She states she has episodes about 2 or 3 times a year. She does report an episode of syncope and June 2022. At the time of examination, she denies chest pain or pressure. She denies shortness of breath. Denies dizziness or lightheadedness while laying in bed. She is currently receiving an IV fluid bolus. * Laboratory data: WBC 6.47. Hemoglobin 10.6. Platelet count 168. TSH 0.015. Free T4 2 0.15. No BMP available at the time of dictation * Current home cardiac medications include lisinopril 5 mg daily and Lipitor 20 mg at night, * Most recent echocardiogram obtained in August 2022 revealed normal ejection fraction, mild MR, mild TR * Patient underwent stress testing and August 2022 with no evidence of stress- induced ischemia 03/24/2023 Patient examined this morning at the bedside. Patient denies chest pain or pressure. She denies shortness of breath. Patient underwent chest x-ray this morning which was negative for an acute process. The patient continues to report dizziness upon standing. Orthostatic blood pressures have not been obtained yet this morning. Echocardiogram completed revealing ejection fraction 55-60%, mild MR, mild TR PHYSICAL EXAM: VITAL SIGNS: Reviewed. GENERAL: Well-developed in no acute distress. HEENT: Head is normocephalic. Pupils are equal, round. Sclerae anicteric. Mucous membranes of the mouth are moist. Neck supple. No JVD or thyromegaly LUNGS: Respirations even and unlabored. Lungs essentially clear to auscultation bilaterally. HEART: Regular rate and rhythm. S1 and S2 heard. Systolic murmur noted ABDOMEN: Soft. Nondistended. Nontender. EXTREMITIES: Normal range of motion. No clubbing or cyanosis. Peripheral pulses intact. No lower extremity edema NEUROLOGIC: Awake and alert. Oriented x 3. ASSESSMENT: Osteoarthritis, status post left total hip arthroplasty, 03/21/2023 Orthostatic hypotension, improving History of orthostatic hypotension with previous syncope History of hypertension Hyperlipidemia Long haul Covid PLAN: Continue to hold and hypertensive medications Add Midodrine 5mg daily Obtain orthostatic blood pressures daily. Orthostatic blood pressures have not been obtained yet today. Further recommendations pending patient course Nurse practitioner note has been reviewed by physician. Signing provider agrees with the documented findings, assessment, and plan of care. Objective - Vital Signs Vital signs: Vital Signs Temp 98.7 F 03/24/23 06:57 Pulse 90 03/24/23 06:57 Resp 18 03/24/23 06:57 BP 125/64 03/24/23 06:57 Pulse Ox 92 L 03/24/23 06:57 FiO2 Intake & Output 03/23/23 03/24/23 03/24/23 18:59 06:59 18:59 Intake Total 59 Balance 59 Intake: Oral 59 Other: # Voids 3 1 - Labs CBC & Chem 7: 03/22/23 06:39 03/24/23 07:24 Labs: Abnormal Lab Results - Last 24 Hours (Table) 03/23/23 03/24/23 Range/Units 13:14 07:24 Sodium 133 L 132 L (137-145) mmol/L Glucose 161 H 122 H (74-99) mg/dL Calcium 7.6 L 7.8 L (8.4-10.2) mg/dL
[2023-03-24 11:00] VITALS: BP 138/72
[2023-03-24 11:26] LABS: Basophils # (A) 0.03 X 10*3/uL (0.00-0.10); Basophils % (A) 0.3 %; Eosinophils # (A) 0.16 X 10*3/uL (0.04-0.35); Eosinophils % (A) 1.6 %; HCT 26.5 % (37.2-46.3); HGB 8.9 d/dL (12.0-15.0); Lymphocytes # (A) 1.71 X 10*3/uL (0.90-5.00); MCH 29.8 pg (27.0-32.0); MCHC 33.6 d/dL (32.0-37.0); MCV 88.6 FL (80.0-97.0); Mean Platelet Volume 12.4 FL (9.5-12.2); Monocytes # (A) 1.15 X 10*3/uL (0.20-1.00); Monocytes % (A) 11.4 %; NRBC Per 100 WBC 0 X 10*3/uL (0.00-0.01); Neutrophils # (A) 6.94 X 10*3/uL (1.80-7.70); Neutrophils % (A) 69.1 %; Platelet Count 156 X 10*3/uL (140-440); RBC 2.99 X 10*6/uL (4.10-5.20); RDW 13.1 % (11.5-14.5); WBC 10.05 X 10*3/uL (4.50-10.00)
[2023-03-24] MEDS ORDERED: MIDODRINE 5 MG TAB PO SCH (12:30)
--- NOTE | 2023-03-24 13:27 | P.PN ---
Subjective Progress Note Date: 03/24/23 Patient is admitted for left total hip arthroplasty, patient doesn't have any pain. Patient and if you just nausea vomiting abdominal pain dysuria, coughing. 03/22/2023 Patient's postoperative day #1 total left hip arthroplasty evaluated on the medical floor. Patient's blood pressure was found to be low yesterday in the 60 systolic was placed on normal saline at 75mls/hr overnight with blood pressure improved to 100 systolic. We will recommend at this time to hold lisinopril and also on discharge with close monitoring of blood pressure and follow-up with PCP. Orthopedics recommending a course of oral xarelto 10 mg daily for 35 days. On assessment patient does feel flushed in the face after first of xarelto this was brought to nursing attention. Requested orthostatic blood pressure. 03/23/2023 Patient is evaluated today on the medical floor postoperative day #2 left total hip arthroplasty she continues to report some heaviness in her left leg although she is getting up with a walker and has been cleared from with physical therapy. She was unable to afford Xarelto and discussed with orthopedics who is recommending aspirin 325 mg twice a day for 3 days and this has been added to the discharge. Blood pressure has improved up to the 120s systolic however patient does have positive orthostatic blood pressures with her blood pressure dropping to 97/62 with ambulation and she does report that she is feeling dizzy with standing. Her lisinopril has been held and she is to maintain a normal sinus most per hour. We will give patient a 1 L fluid bolus. Her lungs are currently clear and she is saturating well on room air. She does have a T-max of 100.3 overnight this is likely due to postoperative atelectasis however patient is using her incentive spirometer we will check a chest x-ray urinalysis to rule out infection. Discharge is being held due to low blood pressures and cardiac evaluation. 03/24/2023 Issue is evaluated today she is postoperative day #3 total left hip ar throplasty. Patient is seen up ambulating with a walker transferred to the bedside commode and has reports increased mobility as the day prior. She received a fluid bolus yesterday was continued on hydration overnight and her orthostatic changes are now negative with blood pressure maintaining in the 120s to 130s systolic on standing and sitting. She was evaluated by cardiology and had an echocardiogram completed which is showing an EF of 55-60% with mild mitral regurgitation and tricuspid regurgitation. She had an EKG completed that was normal sinus rhythm with no ST or T-wave changes. Labs today reveal a white count of 10.05, hemoglobin 8.9, sodium of 132, BUN is 9, creatinine 0.61. Her glucose is 122 and calcium is 7.8. She had a normal chest x-ray and normal urinalysis. Cardiology recommended patient to begin midodrine 5 mg daily and continue to hold lisinopril on discharge. Otherwise symptoms of dizziness and lightheadedness have resolved. Review of Systems Constitutional: Denied any fatigue denied any fever. Cardio vascular: denied any chest pain, palpitations Gastrointestinal: denied any nausea, vomiting, diarrhea Pulmonary: Denied any shortness of breath cough Neurologic denied any new focal deficits. Generalized weakness and dizziness lightheadedness with standing. All inpatient medications were reviewed and appropriate changes in these medications as dictated in the interval history and assessment and plan. PHYSICAL EXAMINATION: GENERAL: The patient is alert and oriented x3, not in any acute distress. Well developed, well nourished. HEENT: Pupils are round and equally reacting to light. EOMI. No scleral icterus. No conjunctival pallor. Normocephalic, atraumatic. No pharyngeal erythema. No thyromegaly. CARDIOVASCULAR: S1 and S2 present. No murmurs, rubs, or gallops. PULMONARY: Chest is clear to auscultation, no wheezing or crackles. ABDOMEN: Soft, nontender, nondistended, normoactive bowel sounds. No palpable organomegaly. MUSCULOSKELETAL: Deferred to orthopedic surgery EXTREMITIES: No cyanosis, clubbing, or pedal edema. NEUROLOGICAL: Gross neurological examination did not reveal any focal deficits. SKIN: No rashes. Assessment and plan -Left hip arthroplasty postoperative day #3 pain is well-controlled -Postoperative hypotension and positive orthostatic changes which have resolved. -History of orthostatic hypotension -Dizziness and lightheadedness secondary to above -Graves disease -Hyperlipidemia -Anxiety/Depression -Former Smoker DVT prophylaxis: As per primary service GI prophylaxis Full Code Plan Lisinopril is being held at this time. Cardiology consultation and recommending patient to DC on midodrine 5 mg daily. Does have history of positive orthostatic postural changes and patient has been started on midodrine and lisinopril held on discharge. Patient instructed to check blood pressure at home and keep follow up log. Patient continues on pain management and bowel regimen. Continue to encourage incentive spirometer 10 x an hour while awake. Patient to follow up with PCP Dr. Preston Barrow, Cardiology and orthopedics on discharge. Sodium 132 today patient to repeat labs outpatient in 2 to 3 days and given lab script for DC. Medically she is clear. The impression and plan of care has been dictated by Tesha Mims, Nurse Practitioner as directed. Dr. Bertha MD I have performed a history and physical examination and medical decision making of this patient, discussed the same with the dictator, and agree with the dictators assessment and plan as written, documented as a scribe. Based on total visit time, I have performed more than 50% of this visit. Objective - Vital Signs Vital signs: Vital Signs Temp 98.7 F 03/24/23 06:57 Pulse 90 03/24/23 06:57 Resp 18 03/24/23 06:57 BP 125/64 03/24/23 06:57 Pulse Ox 92 L 03/24/23 06:57 FiO2 Intake & Output 03/23/23 03/24/23 03/24/23 18:59 06:59 18:59 Intake Total 59 Balance 59 Intake: Oral 59 Other: # Voids 3 1 - Labs CBC & Chem 7: 03/24/23 07:24 03/24/23 07:24 Labs: Abnormal Lab Results - Last 24 Hours (Table) 03/23/23 Range/Units 13:14 Sodium 133 L (137-145) mmol/L Glucose 161 H (74-99) mg/dL Calcium 7.6 L (8.4-10.2) mg/dL Assessment and Plan Time with Patient: Less than 30
[2023-03-25] MEDS ORDERED: LEVOTHYROXINE 75 MCG TAB PO SCH (06:30)
--- NOTE | 2023-03-29 11:53 | CDI ---
Documentation Clarification Form Date: 03/29/2023 From: Candice Velez Admit Date: 03/24/2023 Patient Name: Ramya Castellano Visit Number: [id number] Discharge Date: 03/24/2023 ATTENTION: The Clinical Documentation Specialists (CDI) and [facility] Coding Staff appreciate your assistance in clarifying documentation. Please respond to the clarification below the line at the bottom and electronically sign. The CDI & [facility] Coding staff will review the response and follow-up if needed. Please note: Queries are made part of the Legal Health Record. If you have any questions, please contact the author of this message via ITS. Dr. Yeison Lares Postoperative hypotension is documented in the IM PN on 03/24 and patient had Additional clarification is requested regarding the relationship, if any, that exists between the diagnosis and the procedure. Patients Admitting Diagnosis: Left hip severe OA Post-Operative Diagnosis: Left hip severe OA Procedure performed 03/21: L RACHEL [id number] approach History/Risk Factors: 73yo has a h/o orthostatic hypotension and long haul Covid, presented with L hip OA and underwent an elective RACHEL. Clinical Indicators: VS 03/21 @ 0644: 98.8, 95, 18, 166/80 (sitting), 97% on RA 03/21 @ 1800: BP 60/31 03/22 @ 1917: 98.4, 74, 16, 101/61, 95% on RA 03/23 @ 1322: 98.4, 98, 18, 119/72, 98% on RA Per IM PN on 03/23 pt does have positive orthostatic blood pressures with her blood pressure dropping to 97/62 with ambulation and she does report that she is feeling dizzy with standing Treatment: IV fluid bolus, IV fluid @ 75ml/hr, Lisinopril held Consults: What relationship, if any, exists between the diagnosis of postoperative hypotension and the procedure: [ ] is a complication of surgical procedure [ ] is an expected outcome of the surgical procedure [ ] is related to patients history of orthostatic hypotension & not a complication of the procedure [ ] has been ruled out [ x ] Other please specify [ ] Unable to determine Please send this query to internal medicine/cardiology to get their opinion. (Template Last Revised: October 2020) MTDD
--- NOTE | 2023-03-29 16:35 | CDI ---
Documentation Clarification Form Date: 03/29/2023 11:53:00 AM From: Candice Velez Phone: [phone] Admit Date: 03/24/2023 07:25:00 AM Patient Name: Ramya Castellano Visit Number: [id number] Discharge Date: 03/24/2023 01:43:00 PM ATTENTION: The Clinical Documentation Specialists (CDI) and [facility] Coding Staff appreciate your assistance in clarifying documentation. Please respond to the clarification below the line at the bottom and electronically sign. The CDI & [facility] Coding staff will review the response and follow-up if needed. Please note: Queries are made part of the Legal Health Record. If you have any questions, please contact the author of this message via ITS. Dr. Crissy Stone MD Postoperative hypotension is documented in the IM PN on 03/24. Additional clarification is requested regarding the relationship, if any, that exists between the diagnosis and the procedure. Patients Admitting Diagnosis: Left hip severe OA Post-Operative Diagnosis: Left hip severe OA Procedure performed 03/21: L RACHEL [id number] approach History/Risk Factors: 73yo has a h/o orthostatic hypotension and long haul Covid, presented with L hip OA and underwent an elective RACHEL. Clinical Indicators: VS 03/21 @ 0644: 98.8, 95, 18, 166/80 (sitting), 97% on RA 03/21 @ 1800: BP 60/31 03/22 @ 1917: 98.4, 74, 16, 101/61, 95% on RA 03/23 @ 1322: 98.4, 98, 18, 119/72, 98% on RA Per IM PN on 03/23 pt does have positive orthostatic blood pressures with her blood pressure dropping to 97/62 with ambulation and she does report that she is feeling dizzy with standing Treatment: IV fluid bolus, IV fluid @ 75ml/hr, Lisinopril held Consults: IM, cardiology What relationship, if any, exists between the diagnosis of postoperative hypotension and the procedure: [ ] is a complication of surgical procedure [x ] is an expected outcome of the surgical procedure [ ] is related to patients history of orthostatic hypotension & not a complication of the procedure [ ] has been ruled out [ ] Other please specify [ ] Unable to determine (Template Last Revised: October 2020) MTDD
== END 2023-03-24 13:43 | disposition home health service (06) | DRG 470 ==
LOC: OR 05:44 → EDSTATUS 07:30 → 4SSUR 09:52 → OR 03-24 07:25 → 4SSUR 03-24 07:25
PROVIDERS: ADMIT Orthopaedic Surgery; ATTEND Orthopaedic Surgery
PROC: 3E0R3BZ Introduction of Anesthetic Agent into Spinal Canal, Percutaneous Approach (ICD-10-PCS; 2023-03-21)
PROC: 0SRB02A Replacement of Left Hip Joint with Metal on Polyethylene Synthetic Substitute, Uncemented, Open Approach (ICD-10-PCS; principal; 2023-03-21 07:30)
DX: M16.12 Unilateral primary osteoarthritis, left hip (principal); R50.9 Fever, unspecified; I08.1 Rheumatic disorders of both mitral and tricuspid valves; E05.00 Thyrotoxicosis with diffuse goiter without thyrotoxic crisis or storm; F32.A Depression, unspecified; I10 Essential (primary) hypertension; I95.9 Hypotension, unspecified; E78.5 Hyperlipidemia, unspecified; U09.9 Post COVID-19 condition, unspecified; S73.192A Other sprain of left hip, initial encounter; I95.1 Orthostatic hypotension; F41.9 Anxiety disorder, unspecified; R25.2 Cramp and spasm; H91.90 Unspecified hearing loss, unspecified ear; Z96.652 Presence of left artificial knee joint; Z85.3 Personal history of malignant neoplasm of breast; Z92.3 Personal history of irradiation; Z87.39 Personal history of other diseases of the musculoskeletal system and connective tissue; Z87.891 Personal history of nicotine dependence; Z79.82 Long term (current) use of aspirin; Z79.890 Hormone replacement therapy; Z79.899 Other long term (current) drug therapy; Z88.6 Allergy status to analgesic agent; Z88.2 Allergy status to sulfonamides; Z88.8 Allergy status to other drugs, medicaments and biological substances; Z88.1 Allergy status to other antibiotic agents; Z91.041 Radiographic dye allergy status
CPT/HCPCS: 71046; 73501; 80048; 84439; 84443; 85025; 86850; 86900; 86901

== ENCOUNTER → 2023-03-29 | Outpatient (CLI) | payer MEDICARE ==
[2023-03-29 20:15] LABS: BUN/Creat Ratio 16.22 Ratio (12.00-20.00); Blood Urea Nitrogen 14.6 mg/dL (9.0-27.0); Calcium 9.4 mg/dL (8.7-10.3); Carbon Dioxide 24.4 mmol/L (21.6-31.8); Chloride 103 mmol/L (96-109); Glucose 125 mg/dL (70-110); Potassium 4.6 mmol/L (3.5-5.5); Sodium 141 mmol/L (135-145)
== END | disposition home or self-care (01) ==
LOC: LABWHC1 15:05
PROVIDERS: ATTEND Nurse Practitioner Family
DX: E87.1 Hypo-osmolality and hyponatremia (principal)
CPT/HCPCS: 36415; 80048

== ENCOUNTER 2023-05-29 10:38 | Emergency (ER) | payer MEDICARE ==
[2023-05-29 10:48] VITALS: RESP 18; TEMP 97.5
[2023-05-29] MEDS ORDERED: METOCLOPRAMIDE 5 MG/ML 2 ML VIAL IVP STA (11:10)
[2023-05-29] MEDS ORDERED: MECLIZINE 12.5 MG TAB PO STA (11:10)
--- NOTE | 2023-05-29 11:13 | ED ---
General Adult HPI - General Chief complaint: Dizziness Stated complaint: dizziness Time Seen by Provider: 05/29/23 10:55 Source: patient Mode of arrival: ambulatory Limitations: no limitations - History of Present Illness Initial comments: Dictation was produced using Incentive dictation software. please excuse any grammatical, word or spelling errors. Chief Complaint: 73-year-old female with vertigo History of Present Illness: 73-year-old female presents emergency department with vertiginous symptoms. Patient has never had vertigo in the past. She recently had left hip surgery in had physical therapy. She's been having bouts of vertigo since yesterday. Patient states that seems to come on whenever she makes certain movements. Denies any headache. No numbness and paresthesias to the arms or legs. Patient states that when she rests her symptoms improved. Patient has been instructed to hold her blood pressure medications around the time of her recent hip surgery. She has not yet been told to resume her blood pressure medications yet. The ROS documented in this emergency department record has been reviewed and co nfirmed by me. Those systems with pertinent positive or negative responses have been documented in the HPI. All other systems are other negative and/or noncontributory. - Related Data Home Medications Medication Instructions Recorded Confirmed Atorvastatin [Lipitor] 20 mg PO HS 11/12/16 03/21/23 Levothyroxine Sodium [Synthroid] 137 mcg PO MOTUWETHFR 11/12/16 03/21/23 Levothyroxine Sodium [Synthroid] 150 mcg PO SUSA 11/12/16 03/21/23 diazePAM [Valium] 2 mg PO BID PRN 11/12/16 03/21/23 HYDROcodone/APAP 10-325MG [[place] 1 tab PO TID PRN 07/30/18 03/21/23 10-325] Loratadine [Claritin] 10 mg PO DAILY 07/15/20 03/21/23 Meclizine [Antivert] 25 mg PO BID 07/15/20 03/21/23 allopurinoL 100 mg PO Q48H 03/15/23 03/21/23 Previous Rx's Medication Instructions Recorded Sennosides-Docusate Sodium 2 each PO HS #30 tab 03/22/23 [Senokot-S] Aspirin 325 mg PO BID 30 Days #60 tab 03/23/23 HYDROcodone/APAP 10-325MG [[place] 1 tab PO Q4-6H PRN #42 tab 03/24/23 10-325] Midodrine [ProAmatine] 5 mg PO DAILY #30 tablet 03/24/23 Meclizine [Antivert] 25 mg PO TID PRN #15 tab 05/29/23 Allergies Allergy/AdvReac Type Severity Reaction Status Date / Time ibuprofen [From Motrin] Allergy Anaphylaxis Verified 05/29/23 10:46 Sulfa (Sulfonamide Allergy Swelling Verified 05/29/23 10:46 Antibiotics) neomycin AdvReac Unknown eye Verified 05/29/23 10:46 ointment caused itching, burning red eyes Tetracyclines AdvReac Nausea & Verified 05/29/23 10:46 Vomiting PET SCAN DYE Allergy Rash/Hives Uncoded 05/29/23 10:46 Review of Systems ROS Statement: Those systems with pertinent positive or pertinent negative responses have been documented in the HPI. ROS Other: All systems not noted in ROS Statement are negative. Past Medical History Past Medical History: Asthma, Cancer, COPD, Hearing Disorder / Deafness, Hyperlipidemia, Hypertension, Osteoarthritis (OA), Thyroid Disorder Additional Past Medical History / Comment(s): Breast Cancer 2003, HAD RADIATION. LT EAR [place]. GRAVES DISEASE. HX VERTIGO. LT KNEE PAIN. GETS MUSCLE SPASMS IN LEGS IN NOC. AB CAUSES YEAST INFECTIONS. Had 1st Covid vaccine, fatigue only side effect, resolved now. History of Any Multi-Drug Resistant Organisms: None Reported Past Surgical History: Breast Surgery, Ear Surgery, Hysterectomy, Joint Replacement, Orthopedic Surgery, Tonsillectomy Additional Past Surgical History / Comment(s): Left Lumpectomy X2. LT EAR DRUM REPAIR. RT KNEE SCOPE. MULT EYE SURGERIES. EMERGENCY D&C. LT TKA, BILAT EYE SURGERIES R/T GRAVES DISEASE-HAS STENT IN RT EYE, PAIN CLINIC PROCEDURE. Past Anesthesia/Blood Transfusion Reactions: Postoperative Nausea & Vomiting (PONV) Past Psychological History: Anxiety Smoking Status: Former smoker Past Alcohol Use History: None Reported Past Drug Use History: None Reported - Past Family History Mother Family Medical History: Cancer Additional Family Medical History / Comment(s): STOMACH CANCER. Sister(s) Family Medical History: Cancer Father Family Medical History: Unable to Obtain General Exam - General Exam Comments Initial Comments: PHYSICAL EXAM: General Impression: Alert and oriented x3, not in acute distress HEENT: Normocephalic atraumatic, extra-ocular movements intact, pupils equal and reactive to light bilaterally, mucous membranes moist. Cardiovascular: Heart regular rate and rhythm Chest: Able to complete full sentences, no retractions, no tachypnea Abdomen: abdomen soft, non-tender, non-distended, no organomegaly Musculoskeletal: Pulses present and equal in all extremities, no peripheral edema Motor: no focal deficits noted Neurological: CN II-XII grossly intact, no focal motor or sensory deficits noted, nystatin is induced with head turning to the left and a supine position and when immediately placed from laying to sitting. After several seconds her nystagmus with resolve Skin: Intact with no visualized rashes Psych: Normal affect and mood Limitations: no limitations Course Vital Signs 05/29/23 05/29/23 05/29/23 10:42 11:16 12:30 Temperature 97.5 F L Pulse Rate 102 H 87 81 Respiratory 18 18 18 Rate Blood Pressure 203/100 182/93 172/89 O2 Sat by Pulse 99 96 97 Oximetry EKG Findings - EKG Comments: EKG Findings:: My EKG interpretation: Ventricular rate 94, sinus rhythm,. 157, QRS 81, QTc 388. No CT prolongation, no QTC prolongation, no ST or T-wave changes noted. Overall, this EKG is unremarkable Medical Decision Making - Medical Decision Making Was pt. sent in by a medical professional or institution ([facility], [facility] REPAIRER, urgent care, hospital, or correction...) When possible be specific @ -No Did you speak to anyone other than the patient for history (EMS, parent, family, police, friend...)? What history was obtained from this source @ -No Did you review nursing and triage notes (agree or disagree)? Why? @ -I reviewed and agree with nursing and triage notes Were old charts reviewed (outside hosp., previous admission, EMS record, old EKG, old radiological studies, urgent care reports/EKG's, correction records)? Report findings @ -No old charts were reviewed Differential Diagnosis (chest pain, altered mental status, abdominal pain women, abdominal pain men, vaginal bleeding, musculoskeletal, weakness, fever, dyspnea, syncope, headache, dizziness, GI bleed, back pain, seizure, CVA, palpatations, mental health)? @ -Differential Dizziness: Benign paroxysmal positional Vertigo, Menieres disease, otitis media, acoustic neuroma, vertebrobasilar insufficiency, cerebellar stroke, encephalitis, hypovolemic, arrhythmia, coronary artery syndrome, anemia, this is not meant to be an all-inclusive list EKG interpreted by me (3pts min.). @ -see above X-rays interpreted by me (1pt min.). @ -None done CT interpreted by me (1pt min.). @ -None done U/S interpreted by me (1pt. min.). @ -None done What testing was considered but not performed or refused? (CT, X-rays, U/S, labs)? Why? @ -None What meds were considered but not given or refused? Why? @ -None Did you discuss the management of the patient with other professionals (pro fessionals i.e. , PA, KILN REPAIRER, lab, RT, psych nurse, professor of social work, cheese cutter, teacher, assurance officer, case management specialist)? Give summary @ -No Was smoking cessation discussed for >3mins.? @ -No Was critical care preformed (if so, how long)? @ -No Were there social determinants of health that impacted care today? How? (Homelessness, low income, unemployed, alcoholism, drug addiction, transporta tion, low edu. Level, literacy, decrease access to med. care, half-way, rehab)? @ -No Was there de-escalation of care discussed even if they declined (Discuss DNR or withdrawal of care, Hospice)? DNR status @ -No What co-morbidities impacted this encounter? (DM, HTN, Smoking, COPD, CAD, Cancer, CVA, ARF, Chemo, Hep., AIDS, mental health diagnosis, sleep apnea, morbid obesity)? @ -None Was patient admitted / discharged? Hospital course, mention meds given and route, prescriptions, significant lab abnormalities, going to OR and other pertinent info. @ -73-year-old female presents with clinical presentation consistent with benign paroxysmal positional vertigo. Vital signs stable. Patient given Reglan and Antivert with improvement of symptoms on reevaluation at 12:40 PM. Labs are unremarkable. Patient told to follow-up with primary care doctor. Patient prov ided a prescription for Antivert. Return precautions discussed. Undiagnosed new problem with uncertain prognosis? @ -No Drug Therapy requiring intensive monitoring for toxicity (Heparin, Nitro, Insulin, Cardizem)? @ -No Were any procedures done? @ -No Diagnosis/symptom? Acute, or Chronic, or Acute on Chronic? Uncomplicated (without systemic symptoms) or Complicated (systemic symptoms)? @ -BPPV Side effects of treatment? @ -No Exacerbation, Progression, or Severe Exacerbation? @ -No Poses a threat to life or bodily function? How? (Chest pain, USA, OR, pneumonia, PE, COPD, DKA, ARF, appy, cholecystitis, CVA, Diverticulitis, Homicidal, Suicidal, threat to staff... and all critical care pts) @ -yes - Lab Data Result diagrams: 05/29/23 11:24 05/29/23 11:24 Lab Results 05/29/23 05/29/23 Range/Units 11:24 11:24 WBC 6.9 (3.8-10.6) k/uL RBC 4.99 (3.80-5.40) m/uL Hgb 14.3 (11.4-16.0) gm/dL Hct 44.3 (34.0-46.0) % MCV 88.8 (80.0-100.0) fL MCH 28.8 (25.0-35.0) pg MCHC 32.4 (31.0-37.0) g/dL RDW 13.3 (11.5-15.5) % Plt Count 254 (150-450) k/uL MPV 8.8 Neutrophils % 70 % Lymphocytes % 19 % Monocytes % 5 % Eosinophils % 3 % Basophils % 1 % Neutrophils # 4.8 (1.3-7.7) k/uL Lymphocytes # 1.4 (1.0-4.8) k/uL Monocytes # 0.4 (0-1.0) k/uL Eosinophils # 0.2 (0-0.7) k/uL Basophils # 0.1 (0-0.2) k/uL Sodium 141 (137-145) mmol/L Potassium 4.7 (3.5-5.1) mmol/L Chloride 106 (98-107) mmol/L Carbon Dioxide 25 (22-30) mmol/L Anion Gap 10 mmol/L BUN 13 (7-17) mg/dL Creatinine 0.53 (0.52-1.04) mg/dL Est GFR (CKD-EPI)AfAm >90 (>60 ml/min/1.73 sqM) Est GFR (CKD-EPI)NonAf >90 (>60 ml/min/1.73 sqM) Glucose 118 H (74-99) mg/dL Calcium 10.0 (8.4-10.2) mg/dL Disposition Clinical Impression: BPPV (benign paroxysmal positional vertigo) Disposition: HOME SELF-CARE Condition: Good Instructions (If sedation given, give patient instructions): Vertigo (ED) Prescriptions: Meclizine [Antivert] 25 mg PO TID PRN #15 tab PRN Reason: dizziness Is patient prescribed a controlled substance at d/c from ED?: No Referrals: Jaciel Mathias MD [Primary Care Provider] - 1-2 days Time of Disposition: 12:49
[2023-05-29 11:56] LABS: Basophils # (A) 0.1 k/uL (0-0.2); Basophils % (A) 1 %; Eosinophils # (A) 0.2 k/uL (0-0.7); Eosinophils % (A) 3 %; HCT 44.3 % (34.0-46.0); HGB 14.3 gm/dL (11.4-16.0); Lymphocytes # (A) 1.4 k/uL (1.0-4.8); Lymphocytes % (A) 19 %; MCH 28.8 pg (25.0-35.0); MCHC 32.4 g/dL (31.0-37.0); MCV 88.8 fL (80.0-100.0); Mean Platelet Volume 8.8; Monocytes # (A) 0.4 k/uL (0-1.0); Monocytes % (A) 5 %; Neutrophils # (A) 4.8 k/uL (1.3-7.7); Neutrophils % (A) 70 %; Platelet Count 254 k/uL (150-450); RBC 4.99 m/uL (3.80-5.40); RDW 13.3 % (11.5-15.5); WBC 6.9 k/uL (3.8-10.6)
[2023-05-29 12:14] LABS: African American GFR (CKD) >90 (>60 ml/min/1.73 sqM); Anion Gap 10 mmol/L; Blood Urea Nitrogen 13 mg/dL (7-17); Carbon Dioxide 25 mmol/L (22-30); Chloride 106 mmol/L (98-107); Glucose 118 mg/dL (74-99); Non-African American GFR(CKD) >90 (>60 ml/min/1.73 sqM); Potassium 4.7 mmol/L (3.5-5.1); Sodium 141 mmol/L (137-145)
[2023-05-29 12:36] VITALS: BP 172/89; PULSE 81
== END 2023-05-29 13:09 | disposition home or self-care (01) ==
LOC: EC 10:38
DX: H81.12 Benign paroxysmal vertigo, left ear (principal); E78.5 Hyperlipidemia, unspecified; I10 Essential (primary) hypertension; J44.9 Chronic obstructive pulmonary disease, unspecified; E07.9 Disorder of thyroid, unspecified; F41.9 Anxiety disorder, unspecified; Z87.891 Personal history of nicotine dependence; M19.90 Unspecified osteoarthritis, unspecified site; Z79.890 Hormone replacement therapy; Z79.899 Other long term (current) drug therapy; Z88.2 Allergy status to sulfonamides; Z88.6 Allergy status to analgesic agent; Z88.8 Allergy status to other drugs, medicaments and biological substances
CPT/HCPCS: 36415; 80048; 85025; 99284; 96374; J2765

== ENCOUNTER → 2023-07-12 | Outpatient (CLI) | payer MEDICARE ==
--- NOTE | 2023-07-14 08:55 | MM ---
Reason for Exam: Screening (asymptomatic). Last screening mammogram was performed 12 month(s) ago. Patient History: Menarche at age 13. First Full-Term at age 23. Left ovary removed at age 43. Right ovary removed at age 43. Hysterectomy at age 43. Postmenopausal. Breast cancer, left, age 53. Previous chest radiation therapy at age 53. Estrogen for 8 years from age 43 until age 51. Hormonal Contraceptives for 3 years from age 24 until age 43. Tamoxifen, starting at age 54 for 5 years. Cyst Aspiration on the Left side. Lumpectomy on the Left side. Core Biopsy on the Left side. 01/02/2004, Malignant Stereotactic Core Biopsy on the left side. Radiation Therapy, left. Sister had breast cancer, age 57. Prior Study Comparison: 07/06/2020 Bilateral Diagnostic Mammogram, [facility]. 07/07/2021 Bilateral Screening Mammogram, [facility]. 07/11/2022 Bilateral MG 3D screening mammo w/cad, [facility]. Tissue Density: The breast tissue is heterogeneously dense. This may lower the sensitivity of mammography. Findings: Analyzed By CAD. Postoperative changes left breast remain unchanged. Benign calcifications bilaterally. No evidence for right breast mass or suspicious calcifications. Overall Assessment: Benign, BI-RAD 2 Management: Screening Mammogram of both breasts in 1 year. . Patient should continue monthly self-breast exams. A clinical breast exam by your physician is recommended on an annual basis. This exam should not preclude additional follow-up of suspicious palpable abnormalities. Note on Randa scores and lifetime risk: 1. A Randa score greater than 3% is considered moderate risk. If this is the case, consider specialist referral to assess eligibility for a risk reducing agent. 2. If overall lifetime risk for the development of breast cancer is 20% or higher, the patient may qualify for future screening with alternating mammogram and breast MRI. Electronically signed and approved by: Lam Enamorado M.D. Radiologis
== END | disposition home or self-care (01) ==
LOC: RADMAMWWP 10:42
PROVIDERS: ATTEND Internal Medicine Hematology & Oncology
DX: Z12.31 Encounter for screening mammogram for malignant neoplasm of breast (principal); Z78.0 Asymptomatic menopausal state; Z85.3 Personal history of malignant neoplasm of breast; Z80.3 Family history of malignant neoplasm of breast
CPT/HCPCS: 77063; 77067

== ENCOUNTER → 2023-07-27 | Outpatient (CLI) | payer MEDICARE ==
[2023-07-27 11:53] LABS: African American GFR (CKD) >90 (>60 ml/min/1.73 sqM); Blood Urea Nitrogen 20 mg/dL (7-17); Non-African American GFR(CKD) 82 (>60 ml/min/1.73 sqM)
--- NOTE | 2023-07-27 12:57 | CT ---
EXAMINATION TYPE: CT chest w con DATE OF EXAM: 07/27/2023 COMPARISON: Prior chest CT January 06, 2023 HISTORY: lung disease CT DLP: 332.4 mGycm. Automated Exposure Control for Dose Reduction was Utilized. TECHNIQUE: CT scan of the thorax is performed following with IV Contrast, patient injected with 100 mL of Isovue 300. FINDINGS: LUNGS: Persistent roughly 2.0 cm area of groundglass opacity posterior right lower lobe image 34 has a similar appearance to prior study with the adjacent anterior 4 to 5 mm pulmonary nodule. Left lung is clear. No pleural effusion or pneumothorax is seen bilaterally. No peripheral reticulation or fibr otic change. No honeycombing. MEDIASTINUM: There are no greater than 1 cm hilar or mediastinal lymph nodes. No cardiomegaly or pe ricardial effusion is seen. OTHER: Postsurgical change to the medial aspect left breast with clips and hypodense area could refle ct postsurgical seroma and/or scar is redemonstrated. Cholecystectomy clips are again seen. IMPRESSION: Stable nonspecific groundglass focus with adjacent tiny nodule posterior right lower lobe favoring atypical parenchymal scar given interval stability. No new suspicious acute or chronic pulm onary process.
== END | disposition home or self-care (01) ==
LOC: RADCTMAIN 11:15
PROVIDERS: ATTEND Internal Medicine Critical Care Medicine
DX: J84.9 Interstitial pulmonary disease, unspecified (principal); R91.1 Solitary pulmonary nodule
CPT/HCPCS: 82565; 84520; 71260; 36415; Q9967

== ENCOUNTER → 2023-10-12 | Outpatient (CLI) | payer MEDICARE ==
[2023-10-12 16:38] LABS: ALT 19 U/L (8-44); AST 16 U/L (13-35); LDL Cholesterol,Calculated 49.4 mg/dL (0.0-131.0)
== END | disposition home or self-care (01) ==
LOC: LABWHC1 08:07
PROVIDERS: ATTEND Internal Medicine Interventional Cardiology
DX: E78.2 Mixed hyperlipidemia (principal)
CPT/HCPCS: 36415; 80061; 84450; 84460

== ENCOUNTER → 2023-12-02 | Outpatient (CLI) | payer MEDICARE ==
--- NOTE | 2023-12-02 15:40 | MR ---
EXAMINATION TYPE: MR lumbar spine wo con DATE OF EXAM: 12/02/2023 3:18 PM CLINICAL INDICATION:Female, 73 years old with history of M47.816 SPONDYLOSIS W/O MYELOPATHY OR RADICU LOPATH; , Low back pain into both sides but more on right x1 year COMPARISON: None TECHNIQUE: Multi planar, multi sequence imaging was performed utilizing: T1-weighted, T2-weighted, a nd turbo inversion recovery imaging of the lumbar spine. IV Contrast: cc . (None if empty) FINDINGS: Alignment: The lumbar vertebral bodies have preserved heights and alignment. Cord: The conus medullaris and the distal spinal cord appear unremarkable with regards to their signa l intensity and morphology. Bones/Discs: Mild degeneration changes throughout the spine with osteophyte formation and facet joint arthropathy. Intervertebral disc signal is maintained. Perineural cysts at the level of S2 measuring 13 mm slightly on the right T12-L1: No evidence of significant spinal canal stenosis or neural foraminal stenosis. L1-L2: No evidence of significant spinal canal stenosis or neural foraminal stenosis. L2-L3: No evidence of significant spinal canal stenosis or neural foraminal stenosis. L3-L4: No evidence of significant spinal canal stenosis or neural foraminal stenosis. L4-L5: No evidence of significant spinal canal stenosis or neural foraminal stenosis. L5-S1: The disc is rounded posterior morphology without significant spinal canal stenosis. Facet join t arthropathy with mild bilateral neural foraminal stenosis. No significant spinal canal or neural foraminal stenosis in the remainder of the visualized levels. Other findings: None. IMPRESSION: 1. No definitive evidence of disc herniation or significant spinal canal stenosis. 2. Mild disc degeneration with associated osteoarthritic changes.
== END | disposition home or self-care (01) ==
LOC: RADMRIMAIN 14:15
PROVIDERS: ATTEND Orthopaedic Surgery
DX: M47.816 Spondylosis without myelopathy or radiculopathy, lumbar region (principal); M51.36 Other intervertebral disc degeneration, lumbar region
CPT/HCPCS: 72148

== ENCOUNTER 2024-02-16 09:48 | Emergency (ER) | payer MEDICARE ==
[2024-02-16 09:54] VITALS: RESP 18; TEMP 97.9
--- NOTE | 2024-02-16 10:33 | ED ---
General Adult HPI - General Chief complaint: Dizziness Stated complaint: Hypertension/Dizziness Time Seen by Provider: 02/16/24 10:10 Source: patient Mode of arrival: ambulatory Limitations: no limitations - History of Present Illness Initial comments: 74-year-old female presents emergency department with reported lightheadedness. States that she was at physical therapy for her back when she had sudden onset of sensation that she was going to pass out. They took her blood pressure and it was notably high. She has a history of hypertension. States she took her blood pressure medications this morning. She has not missed any doses. No recent changes to her medications. She has mild headache. No visual changes. No unilateral numbness or weakness. No chest pain or difficulty breathing. No other alleviating, precipitating modifying factors - Related Data Home Medications Medication Instructions Recorded Confirmed Levothyroxine Sodium [Synthroid] 137 mcg PO MOTUWETHFR 11/12/16 02/16/24 Levothyroxine Sodium [Synthroid] 150 mcg PO SUSA 11/12/16 02/16/24 diazePAM [Valium] 2 mg PO BID PRN 11/12/16 02/16/24 allopurinoL 100 mg PO Q48H 03/15/23 02/16/24 Aspirin EC [Ecotrin Low Dose] 81 mg PO DAILY 02/16/24 02/16/24 Cetirizine HCl [Zyrtec] 10 mg PO DAILY 02/16/24 02/16/24 Cholecalciferol [Vitamin D3 (25 25 mcg PO DAILY 02/16/24 02/16/24 Mcg = 1000 Iu)] HYDROcodone/APAP 10-325MG [Folcroft 0.5 - 1 tab PO TID PRN 02/16/24 02/16/24 10-325] Losartan Potassium 100 mg PO DAILY 02/16/24 02/16/24 Rosuvastatin [Crestor] 10 mg PO HS 02/16/24 02/16/24 Previous Rx's Medication Instructions Recorded Meclizine [Antivert] 25 mg PO TID PRN #15 tab 05/29/23 Allergies Allergy/AdvReac Type Severity Reaction Status Date / Time ibuprofen [From Motrin] Allergy Anaphylaxis Verified 02/16/24 11:29 Sulfa (Sulfonamide Allergy Swelling Verified 02/16/24 11:29 Antibiotics) neomycin AdvReac Unknown eye Verified 06/28/24 11:29 ointment caused itching, burning red eyes Tetracyclines AdvReac Nausea & Verified 02/16/24 11:29 Vomiting PET SCAN DYE Allergy Rash/Hives Uncoded 02/16/24 11:29 Review of Systems ROS Statement: Those systems with pertinent positive or pertinent negative responses have been documented in the HPI. ROS Other: All systems not noted in ROS Statement are negative. Past Medical History Past Medical History: Asthma, Cancer, COPD, Hearing Disorder / Deafness, Hyperlipidemia, Hypertension, Osteoarthritis (OA), Thyroid Disorder Additional Past Medical History / Comment(s): Breast Cancer 2003, HAD RADIATION. LT EAR MANZANITA. GRAVES DISEASE. HX VERTIGO. LT KNEE PAIN. GETS MUSCLE SPASMS IN LEGS IN NOC. AB CAUSES YEAST INFECTIONS. Had 1st Covid vaccine, fatigue only side effect, resolved now. History of Any Multi-Drug Resistant Organisms: None Reported Past Surgical History: Breast Surgery, Ear Surgery, Hysterectomy, Joint Replacement, Orthopedic Surgery, Tonsillectomy Additional Past Surgical History / Comment(s): Left Lumpectomy X2. LT EAR DRUM REPAIR. RT KNEE SCOPE. MULT EYE SURGERIES. EMERGENCY D&C. LT TKA, BILAT EYE SURGERIES R/T GRAVES DISEASE-HAS STENT IN RT EYE, PAIN CLINIC PROCEDURE. Past Anesthesia/Blood Transfusion Reactions: Postoperative Nausea & Vomiting (PONV) Past Psychological History: Anxiety Smoking Status: Former smoker Past Alcohol Use History: None Reported Past Drug Use History: Marijuana - Past Family History Mother Family Medical History: Cancer Additional Family Medical History / Comment(s): STOMACH CANCER. Sister(s) Family Medical History: Cancer Father Family Medical History: Unable to Obtain General Exam Limitations: no limitations General appearance: alert, in no apparent distress Head exam: Present: atraumatic, normocephalic, normal inspection Eye exam: Present: normal appearance, PERRL, EOMI. Absent: scleral icterus, conjunctival injection, periorbital swelling ENT exam: Present: normal exam, mucous membranes moist Neck exam: Present: normal inspection. Absent: tenderness, meningismus, lymphadenopathy Respiratory exam: Present: normal lung sounds bilaterally. Absent: respiratory distress, wheezes, rales, rhonchi, stridor Cardiovascular Exam: Present: regular rate, normal rhythm, normal heart sounds. Absent: systolic murmur, diastolic murmur, rubs, gallop, clicks GI/Abdominal exam: Present: soft, normal bowel sounds. Absent: distended, tenderness, guarding, rebound, rigid Extremities exam: Present: normal inspection, full ROM, normal capillary refill. Absent: tenderness, pedal edema, joint swelling, calf tenderness Back exam: Present: normal inspection Neurological exam: Present: alert, oriented X3, CN II-XII intact Psychiatric exam: Present: normal affect, normal mood Skin exam: Present: warm, dry, intact, normal color. Absent: rash Course Vital Signs 02/16/24 02/16/24 02/16/24 09:51 09:54 11:05 Temperature 97.9 F Pulse Rate 77 75 76 Respiratory 18 18 18 Rate Blood Pressure 193/92 193/107 148/86 O2 Sat by Pulse 100 100 96 Oximetry 02/16/24 13:00 Temperature Pulse Rate Respiratory Rate Blood Pressure 163/69 O2 Sat by Pulse Oximetry Medical Decision Making - Medical Decision Making Was pt. sent in by a medical professional or institution (, PA, TECHNICAL SOLUTION ARCHITECT, urgent care, hospital, or longterm...) When possible be specific @ -Patient sent in from physical therapy Did you speak to anyone other than the patient for history (EMS, parent, family, police, friend...)? What history was obtained from this source @ -No Did you review nursing and triage notes (agree or disagree)? Why? @ -I reviewed and agree with nursing and triage notes Were old charts reviewed (outside hosp., previous admission, EMS record, old EKG, old radiological studies, urgent care reports/EKG's, longterm records)? Report findings @ -No old charts were reviewed Differential Diagnosis (chest pain, altered mental status, abdominal pain women, abdominal pain men, vaginal bleeding, weakness, fever, dyspnea, syncope, headache, dizziness, GI bleed, back pain, seizure, CVA, palpatations, mental health, musculoskeletal)? @ -Differential near Syncope: Valvular disease, hypertrophic cardiomyopathy, pulmonary embolism, tamponade, tachycardia, bradycardia, UT, hypovolemia, hemorrhage, dissection, anemia, intracranial hemorrhage, seizure, hypoglycemia, carbon monoxide poisoning, this is not meant to be an all-inclusive list. EKG interpreted by me (3pts min.). @ -Yes and demonstrates sinus rhythm with a rate of 75. Parable 152. QRS 81. QTc of 390. No acute ST segment elevations or depressions X-rays interpreted by me (1pt min.). @ -None done CT interpreted by me (1pt min.). @ -None done U/S interpreted by me (1pt. min.). @ -None done What testing was considered but not performed or refused? (CT, X-rays, U/S, labs)? Why? @ -None What meds were considered but not given or refused? Why? @ -Antihypertensives were considered however patient does have returned to normal blood pressure without intervention Did you discuss the management of the patient with other professionals (professionals i.e. , PA, TECHNICAL SOLUTION ARCHITECT, lab, RT, psych nurse, social work coordinator, test eng, teacher, unarmed security officer, case manager specialist)? Give summary @ -No Was smoking cessation discussed for >3mins.? @ -No Was critical care preformed (if so, how long)? @ -No Were there social determinants of health that impacted care today? How? (Homelessness, low income, unemployed, alcoholism, drug addiction, transpor tation, low edu. Level, literacy, decrease access to med. care, long-term, rehab)? @ -No Was there de-escalation of care discussed even if they declined (Discuss DNR or withdrawal of care, Hospice)? DNR status @ -No What co-morbidities impacted this encounter? (DM, HTN, Smoking, COPD, CAD, Cancer, CVA, ARF, Chemo, Hep., AIDS, mental health diagnosis, sleep apnea, morbid obesity)? @ -Hypertension Was patient admitted / discharged? Hospital course, mention meds given and route, prescriptions, significant lab abnormalities, going to OR and other pertinent info. @ -Upon arrival patient seen and evaluated in room 2. Thorough history and physical exam was performed. IV was established. Laboratory studies were conducted. Blood pressure does improve on its own. Patient be discharged home and instructed to keep a log of her blood pressure. Follow-up with your heart doctor for medication changes. Return for any new or worsening symptoms Undiagnosed new problem with uncertain prognosis? @ -No Drug Therapy requiring intensive monitoring for toxicity (Heparin, Nitro, Insulin, Cardizem)? @ -No Were any procedures done? @ -No Diagnosis/symptom? @ -Accelerated hypertension, history of hypertension Acute, or Chronic, or Acute on Chronic? @ -Name acute Uncomplicated (without systemic symptoms) or Complicated (systemic symptoms)? @ -Complicated Side effects of treatment? @ -No Exacerbation, Progression, or Severe Exacerbation? @ -No Poses a threat to life or bodily function? How? (Chest pain, USA, UT, pneumonia, PE, COPD, DKA, ARF, appy, cholecystitis, CVA, Diverticulitis, Homicidal, Suicidal, threat to staff... and all critical care pts) @ -No - Lab Data Result diagrams: 02/16/24 11:03 02/16/24 11:03 Lab Results 02/16/24 02/16/24 02/16/24 Range/Units 11:03 11:03 11:03 WBC 9.0 (3.8-10.6) k/uL RBC 5.26 (3.80-5.40) m/uL Hgb 15.5 (11.4-16.0) gm/dL Hct 47.4 H (34.0-46.0) % MCV 90.2 (80.0-100.0) fL MCH 29.5 (25.0-35.0) pg MCHC 32.7 (31.0-37.0) g/dL RDW 13.5 (11.5-15.5) % Plt Count 270 (150-450) k/uL MPV 10.3 Neutrophils % 68 % Lymphocytes % 19 % Monocytes % 7 % Eosinophils % 2 % Basophils % 1 % Neutrophils # 6.1 (1.3-7.7) k/uL Lymphocytes # 1.7 (1.0-4.8) k/uL Monocytes # 0.6 (0-1.0) k/uL Eosinophils # 0.2 (0-0.7) k/uL Basophils # 0.1 (0-0.2) k/uL PT 9.8 L (10.0-12.5) sec INR 0.9 (<1.2) Sodium 140 (137-145) mmol/L Potassium 4.9 (3.5-5.1) mmol/L Chloride 105 (98-107) mmol/L Carbon Dioxide 29 (22-30) mmol/L Anion Gap 6 mmol/L BUN 21 H (7-17) mg/dL Creatinine 0.68 (0.52-1.04) mg/dL Est GFR (CKD-EPI)AfAm >90 (>60 ml/min/1.73 sqM) Est GFR (CKD-EPI)NonAf 86 (>60 ml/min/1.73 sqM) Glucose 99 (74-99) mg/dL Calcium 10.3 H (8.4-10.2) mg/dL Total Bilirubin 0.5 (0.2-1.3) mg/dL AST 26 (14-36) U/L ALT 18 (4-34) U/L Alkaline Phosphatase 119 (38-126) U/L Troponin I (0.000-0.034) ng/mL Total Protein 7.7 (6.3-8.2) g/dL Albumin 4.7 (3.5-5.0) g/dL Urine Color Urine Appearance (Clear) Urine pH (5.0-8.0) Ur Specific Sontag (1.001-1.035) Urine Protein (Negative) Urine Glucose (UA) (Negative) Urine Ketones (Negative) Urine Blood (Negative) Urine Nitrite (Negative) Urine Bilirubin (Negative) Urine Urobilinogen (<2.0) mg/dL Ur Leukocyte Esterase (Negative) 02/16/24 02/16/24 Range/Units 11:03 11:53 WBC (3.8-10.6) k/uL RBC (3.80-5.40) m/uL Hgb (11.4-16.0) gm/dL Hct (34.0-46.0) % MCV (80.0-100.0) fL MCH (25.0-35.0) pg MCHC (31.0-37.0) g/dL RDW (11.5-15.5) % Plt Count (150-450) k/uL MPV Neutrophils % % Lymphocytes % % Monocytes % % Eosinophils % % Basophils % % Neutrophils # (1.3-7.7) k/uL Lymphocytes # (1.0-4.8) k/uL Monocytes # (0-1.0) k/uL Eosinophils # (0-0.7) k/uL Basophils # (0-0.2) k/uL PT (10.0-12.5) sec INR (<1.2) Sodium (137-145) mmol/L Potassium (3.5-5.1) mmol/L Chloride (98-107) mmol/L Carbon Dioxide (22-30) mmol/L Anion Gap mmol/L BUN (7-17) mg/dL Creatinine (0.52-1.04) mg/dL Est GFR (CKD-EPI)AfAm (>60 ml/min/1.73 sqM) Est GFR (CKD-EPI)NonAf (>60 ml/min/1.73 sqM) Glucose (74-99) mg/dL Calcium (8.4-10.2) mg/dL Total Bilirubin (0.2-1.3) mg/dL AST (14-36) U/L ALT (4-34) U/L Alkaline Phosphatase (38-126) U/L Troponin I <0.012 (0.000-0.034) ng/mL Total Protein (6.3-8.2) g/dL Albumin (3.5-5.0) g/dL Urine Color Colorless Urine Appearance Clear (Clear) Urine pH 7.0 (5.0-8.0) Ur Specific S[place]ag 1.005 (1.001-1.035) Urine Protein Negative (Negative) Urine Glucose (UA) Negative (Negative) Urine Ketones Negative (Negative) Urine Blood Negative (Negative) Urine Nitrite Negative (Negative) Urine Bilirubin Negative (Negative) Urine Urobilinogen <2.0 (<2.0) mg/dL Ur Leukocyte Esterase Negative (Negative) Disposition Clinical Impression: Hypertension Disposition: HOME SELF-CARE Condition: Stable Instructions (If sedation given, give patient instructions): Hypertension (ED) Additional Instructions: Check your blood pressure twice daily. Keep a log. Take your blood pressure medications as they are directed now. Return for any new or worsening symptoms Is patient prescribed a controlled substance at d/c from ED?: No Referrals: Preston Barrow DO [Primary Care Provider] - 1-2 days Time of Disposition: 13:26
[2024-02-16] MEDS: SODIUM CHLORIDE 0.9% 1,000 ML IV ONE (11:08)
[2024-02-16] MEDS: MECLIZINE 12.5 MG TAB PO STA (11:09)
[2024-02-16 11:16] VITALS: PULSE 76
[2024-02-16 11:32] LABS: Basophils # (A) 0.1 k/uL (0-0.2); Basophils % (A) 1 %; Eosinophils # (A) 0.2 k/uL (0-0.7); Eosinophils % (A) 2 %; HCT 47.4 % (34.0-46.0); HGB 15.5 gm/dL (11.4-16.0); Lymphocytes # (A) 1.7 k/uL (1.0-4.8); Lymphocytes % (A) 19 %; MCH 29.5 pg (25.0-35.0); MCHC 32.7 g/dL (31.0-37.0); MCV 90.2 fL (80.0-100.0); Mean Platelet Volume 10.3; Monocytes # (A) 0.6 k/uL (0-1.0); Monocytes % (A) 7 %; Neutrophils # (A) 6.1 k/uL (1.3-7.7); Neutrophils % (A) 68 %; Platelet Count 270 k/uL (150-450); RBC 5.26 m/uL (3.80-5.40); RDW 13.5 % (11.5-15.5)
[2024-02-16 11:33] LABS: INR 0.9 (<1.2); Prothrombin Time 9.8 sec (10.0-12.5)
[2024-02-16 11:45] LABS: ALT 18 U/L (4-34); AST 26 U/L (14-36); African American GFR (CKD) >90 (>60 ml/min/1.73 sqM); Albumin 4.7 g/dL (3.5-5.0); Alkaline Phosphatase 119 U/L (38-126); Anion Gap 6 mmol/L; Blood Urea Nitrogen 21 mg/dL (7-17); Calcium 10.3 mg/dL (8.4-10.2); Carbon Dioxide 29 mmol/L (22-30); Chloride 105 mmol/L (98-107); Glucose 99 mg/dL (74-99); Non-African American GFR(CKD) 86 (>60 ml/min/1.73 sqM); Potassium 4.9 mmol/L (3.5-5.1); Sodium 140 mmol/L (137-145); Total Bilirubin 0.5 mg/dL (0.2-1.3); Total Protein 7.7 g/dL (6.3-8.2)
[2024-02-16 12:30] LABS: Appearance,Urine Clear (Clear); Bilirubin,Urine Negative (Negative); Blood,Urine Negative (Negative); Color,Urine Colorless; Glucose,Urine (UA) Negative (Negative); Ketones,Urine Negative (Negative); Leukocyte Esterase,Urine Negative (Negative); Nitrite,Urine Negative (Negative); Protein,Urine Negative (Negative); Specific Gravity,Urine 1.005 (1.001-1.035); Urobilinogen,Urine <2.0 mg/dL (<2.0)
[2024-02-16 13:08] VITALS: BP 163/69
== END 2024-02-16 13:46 | disposition home or self-care (01) ==
LOC: EC 09:48
DX: I10 Essential (primary) hypertension (principal); Z87.891 Personal history of nicotine dependence; Z88.1 Allergy status to other antibiotic agents; Z88.2 Allergy status to sulfonamides; Z88.6 Allergy status to analgesic agent; Z88.8 Allergy status to other drugs, medicaments and biological substances
CPT/HCPCS: 36415; 80053; 81003; 84484; 85025; 85610; 93005; 96360; 99284

== ENCOUNTER → 2024-03-15 | Outpatient (CLI) | payer MEDICARE ==
--- NOTE | 2024-03-15 14:36 | CT ---
EXAMINATION TYPE: CT pelvis wo con CT DLP: 682 mGycm, Automated exposure control for dose reduction was used. DATE OF EXAM: 03/15/2024 1:17 PM COMPARISON: CT abdomen pelvis most recent from CLINICAL INDICATION:Female, 74 years old with history of M54.50 LOW BACK PAIN; Lower back pain more o n right side. SI joint protocol. TECHNIQUE: Axial CT pelvis wo con;Sagittal and coronal reformats were created on a separate workstat ion. Contrast used: mL of , (none if empty) Oral contrast used: without Oral Contrast (none if empty) FINDINGS: PELVIS BLADDER: Unremarkable REPRODUCTIVE: Unremarkable. MUSCULOSKELETAL: No acute osseous abnormalities. Cartilage and SI joints are fairly well maintained , but there appears to be vacuum joint phenomenon. Mild endplate spondylosis lower lumbar spine. IMPRESSION: 1. SI joint vacuum phenomenon suspected. No periarticular sclerosis.
== END | disposition home or self-care (01) ==
LOC: RADCTMAIN 12:46
PROVIDERS: ATTEND Orthopaedic Surgery
DX: M54.50 Low back pain, unspecified (principal)
CPT/HCPCS: 72192

== ENCOUNTER 2024-04-04 15:56 | Emergency (ER) | payer MEDICARE ==
[2024-04-04] MEDS ORDERED: LABETALOL 5 MG/ML VIAL MDV ONE (18:05)
[2024-04-04] MEDS ORDERED: SODIUM CHLORIDE 0.9% 500 ML BAG ONE (18:08)
[2024-04-04] MEDS ORDERED: ACETAMINOPHEN TAB 500 MG TAB ONE (19:21)
--- NOTE | 2024-05-06 14:17 | XR ---
Site ID [facility] Ramya Ruano ID [id number] Order # Procedure XR chest 2V EXAMINATION TYPE: XR chest 2V DATE OF EXAM: 04/05/2024 8:29 AM CLINICAL INDICATION: HTN COMPARISON: None TECHNIQUE: XR chest 2V Frontal view of the chest. FINDINGS: Lungs/Pleura: There is no evidence of pleural effusion, focal consolidation, or pneumothorax. Pulmonary vascularity: Unremarkable. Heart/mediastinum: Cardiomediastinal silhouette is unremarkable. Musculoskeletal: No acute osseous pathology. Other findings: None IMPRESSION: No acute cardiopulmonary disease/process.
== END 2024-04-04 23:10 | disposition home or self-care (01) ==
LOC: EC 15:56
CPT/HCPCS: 71046; 93005; 96374; 99284

== ENCOUNTER 2024-05-07 06:27 | Day surgery (SDC) | payer MEDICARE ==
[2024-05-02 11:40] VITALS: BMI 29.9
[~2024-05-07 06:27] MED LIST changes: -ACETAMINOPHEN TAB 500 MG TAB PO PRN; +LACTATED RINGERS 1,000 ML IV SCH; -Pre Op ABX Message 1 EACH MISC MISCELLANE ONE; -TRANEXAMIC 1,000 MG/100ML-NACL 1,000 MG in SALINE 1 100ML.BAG IVPB PRN
[2024-05-07 06:49] VITALS: TEMP 97.1
[2024-05-07] MEDS ORDERED: ROPIVACAINE 5MG/ML 20ML VIAL ONE (07:49)
[2024-05-07] MEDS ORDERED: TRIAMCINOLONE ACETONIDE 40 MG/ML 1 ML VIAL ONE (07:49)
--- NOTE | 2024-05-07 07:56 | P.PCN ---
Date of Procedure: 05/07/24 Surgeon: Iron Rodriguez Pathology: none sent Condition: stable Disposition: PACU Description of Procedure: Preoperative diagnoses= sacroiliac joint dysfunction and sacroiliitis on the ri ght side Postoperative diagnoses= same as preoperative diagnosis. Procedure= sacroiliac joint steroid injection under fluoroscopic guidance. Anesthesia= local anesthesia only with lidocaine 1% Estimated blood loss=minimal. Procedure indication= the patient had a history of severe chronic low back pain, diagnosed with sacroiliitis and lumbar sacral facet arthropathy unresponsive to conservative treatment. Procedure description= the patient was seen and identified in the preoperative holding area, risks and benefits and alternative of the procedure and possible complications discussed with the patient, patient signed the consent. an IV was started, and vital signs were monitored and were stable throughout the procedure, patient was placed in the prone position or table and the lumbosacral area was prepped and draped with a sterile fashion, vital signs were closely monitored during the procedure.The sacroiliac joint was identified on the AP view of fluoroscopy then the C-arm was tilted to the contralateral oblique position to superimpose the anterior and posterior joint lines on each other and to have a unified joint line with the target point at the inferior one third of this line. I used 22-gauge 3-1/2 inch Quincke spinal needle for this procedure and after getting into the sacroiliac joint I injected 40 mg of Kenalog +1.5 MLS of Ropivacaine 0.5%. Patient tolerated the procedure well without any complication, The patient returned to supine position after the back was cleaned and a Band- Aid applied, the patient transported to recovery room in stable condition and he was monitored for 30 minutes before she was discharged home in stable condition . patient will follow up with the pain clinic in a few weeks. A copy of the needle placement was saved to the C-arm machine.
[2024-05-07 08:06] VITALS: RESP 18
[2024-05-07 08:18] VITALS: BP 135/81; PULSE 77
--- NOTE | 2024-05-23 10:36 | FL ---
EXAMINATION TYPE: FL guided pain mgmt statistic DATE OF EXAM: 05/07/2024 8:08 AM COMPARISON: Pre Operative Images if available both CT/MRI or plain film CLINICAL INDICATION: Female, 74 years old with history of M46.1; TECHNIQUE: FL guided pain mgmt statistic, multiple fluoroscopic images provided for procedure. Total fluoroscopy time: 16.2 seconds Total submitted images to PACS: 1 DAP: [id number] mGym2 Gycm2 uGym2 cGycm2 or equivalent. FINDINGS: Fluoroscopic images during injection for pain management demonstrate multilevel degeneration changes throughout the spine. No evidence for fracture. No acute process identified. IMPRESSION: 1. No evidence for intraoperative complication. 2. Please see the operative/procedural note for further details. [facility], , 05/23/2024 10:33 AM
== END 2024-05-07 08:35 | disposition home or self-care (01) ==
LOC: ORPAIN 06:27
PROVIDERS: ATTEND Anesthesiology
DX: M46.1 Sacroiliitis, not elsewhere classified (principal); G89.29 Other chronic pain; Z88.6 Allergy status to analgesic agent; Z88.1 Allergy status to other antibiotic agents; Z88.8 Allergy status to other drugs, medicaments and biological substances; Z88.2 Allergy status to sulfonamides; Z79.82 Long term (current) use of aspirin; Z79.899 Other long term (current) drug therapy
CPT/HCPCS: 27096

== ENCOUNTER → 2024-05-07 | Outpatient (CLI) | payer MEDICARE ==
[2024-05-07 15:37] LABS: HCT 43.5 % (37.2-46.3); HGB 14.4 g/dL (12.0-15.0); MCH 29.3 pg (27.0-32.0); MCHC 33.1 g/dL (32.0-37.0); MCV 88.4 FL (80.0-97.0); Mean Platelet Volume 12.7 FL (9.5-12.2); NRBC Per 100 WBC 0 X 10*3/uL (0.00-0.01); Platelet Count 219 X 10*3/uL (140-440); RBC 4.92 X 10*6/uL (4.10-5.20); RDW 13.1 % (11.5-14.5)
[2024-05-07 16:03] LABS: ALT 25 U/L (8-44); AST 19 U/L (13-35); Albumin 4.3 g/dL (3.8-4.9); Albumin/Globulin Ratio 1.72 Ratio (1.60-3.17); Alkaline Phosphatase 108 U/L (41-126); Amylase 92 U/L (23-121); BUN/Creat Ratio 22.29 Ratio (12.00-20.00); Blood Urea Nitrogen 15.6 mg/dL (9.0-27.0); Carbon Dioxide 22.9 mmol/L (21.6-31.8); Chloride 106 mmol/L (96-109); Chol/HDL Ratio 2.75 Ratio; Globulin 2.5 g/dL (1.6-3.3); Glucose 113 mg/dL (70-110); LDL Cholesterol,Calculated 58.4 mg/dL (0.0-131.0); Lipase 23 U/L (14-63); Magnesium 1.9 mg/dL (1.5-2.4); Phosphorus 3.5 mg/dL (2.4-5.1); Potassium 4.1 mmol/L (3.5-5.5); Sodium 141 mmol/L (135-145); Total Bilirubin 0.2 mg/dL (0.3-1.2); Total Protein 6.8 g/dL (6.2-8.2)
[2024-05-07 16:26] LABS: Appearance,Urine Clear (Clear); Bilirubin,Urine Negative (Negative); Blood,Urine Negative (Negative); Color,Urine Yellow (Yellow); Ketones,Urine Negative (Negative); Nitrite,Urine Negative (Negative); Specific Gravity,Urine 1.008 (1.001-1.030); Urobilinogen,Urine 0.2 E.U./DL
== END | disposition home or self-care (01) ==
LOC: LABWHC1 08:41
PROVIDERS: ATTEND Family Medicine
DX: I10 Essential (primary) hypertension (principal); E78.5 Hyperlipidemia, unspecified; E03.9 Hypothyroidism, unspecified
CPT/HCPCS: 36415; 80053; 80061; 81003; 82150; 82728; 82746; 82747; 83036; 83690; 83735; 84100; 84439; 84443; 85027

== ENCOUNTER → 2024-05-22 | Outpatient (CLI) | payer MEDICARE ==
[2024-05-22 08:58] VITALS: BP 145/83; PULSE 70; RESP 17; TEMP 98
--- NOTE | 2024-05-22 14:30 | P.PAINPG ---
PQRS Measure Charge Sheet Comment: A 74 yr old female with a history of severe and chronic LBP secondary to R Sacroiliitis, radiculopathy, spondylosis and facet arthropathy without myelopathy presents today for evaluation s/p R SI injection #1. Pt states she experienced > 50% pain relief x 3 wks s/p procedure. Pain level is provoked at 5 /10 in intensity, constant, predominantly axial, localized in the R lumbar spine, dull in character w occasional shooting towards the buttock. Pain is provoked by sitting for periods > 20 min. Pain is alleviated with injections, PT x 6 wks which ended in Sep 2023, ice, medications ([place]), topical BioFreeze, manual massage, repositioning and rest. She has an upcoming appt w Dr Ennis to explore additional treatment options. Interventional pain procedures completed include R SI x1 (Apr 2024), SINGH C7-T1 x2 (2020), Cervical TPIs x1 (2020) Patient is currently on [place], BioFreeze Gel Patient denies any side effects of the medication(s), denies excessive drowsiness or sleepiness, denies suicidal ideation and reports that the current pain medication is helping to control the pain and improve activities of daily living. Patient denies any motor or sensory deficits. Patient denies any fever or night sweats, denies any change in the bowel movements or urination. Physical Examination: -Constitutional: Cooperative. Not in acute distress . - Neurologic: Cranial nerve II to XII intact. No focal neurological deficits. - Psychatric: Alert & oriented x 3. Matching mood & appropriate affect. J udgment and insight intact. - Musculoskeletal: Cervical spine: Muscle bulk/ tone/ strength in the bilateral upper extremities normal Vertebral body tenderness to palpation over Spurling test positive Distraction test positive Facet loading test positive TTP Thoracic spine Muscle bulk / tone/ strength in the bilateral paraspinal muscles normal Vertebral body tender to palpation over Facet loading test positive TTP Lumbar spine: Motor bulk/ tone/ strength lower extremities , thigh and legs : 5/5 Deep tendon reflexes : Normal Knee Jerk. Normal Ankle Jerk . Vertebral body tenderness to palpation over Chavez Test positive Lumbar Facet Loading Test positive Straight Leg Raise: positive at 30 degrees right side/ left side Gaenslen's Test positive Sacral spine : Severe tenderness over the Sacroiliac joint: right side / left side Range of motion: Flexion of the lumbar spine <60 degrees Range of motion: Extension of the lumbar spine <20 degrees Gaenslen's Test positive right side / left side Ana test: positive right side / left side Thigh Thrust Test positive right side / left side Sacral Thrust Test positive right side / left side Assessment and plan: Chronic LBP secondary to lumbar radiculopathy, spondylosis with facet arthropathy without myelopathy Will follow up w Dr Ennis to explore additional treatment options. All questions answered. I have spent less than 30 minutes on patient care today. Dr Johnson was available by phone for the evaluation of this patient. The time was used to review the medical records including relevant urine studies and Prescription history (MAPs), review of the available imaging, evaluation and examination of the patient, coordination of care with the medical staff and if applicable referring physicians, as well as creation of the medical record PQRS Narrative: Smoking Status Former smoker Hx Alcohol Use (MH) No Home Medications: Ambulatory Orders Levothyroxine Sodium [Synthroid] 137 mcg PO MOTUWETHFR 11/12/16 Levothyroxine Sodium [Synthroid] 150 mcg PO SUSA 11/12/16 diazePAM [Valium] 2 mg PO BID PRN 11/12/16 allopurinoL 100 mg PO Q48H 03/15/23 Meclizine [Antivert] 25 mg PO TID PRN #15 tab 05/29/23 Aspirin EC [Ecotrin Low Dose] 81 mg PO DAILY 02/16/24 Cetirizine HCl [Zyrtec] 10 mg PO DAILY 02/16/24 Cholecalciferol [Vitamin D3 (25 Mcg = 1000 Iu)] 25 mcg PO DAILY 02/16/24 Losartan Potassium 100 mg PO DAILY 02/16/24 Rosuvastatin [Crestor] 10 mg PO HS 02/16/24 HYDROcodone/APAP 7.5-325MG [[place] 7.5-325] 1 tab PO TID PRN 05/02/24 Controlled Substance Measures - Controlled Substance Measures Is patient prescribed a controlled substance at discharge?: No
== END | disposition home or self-care (01) ==
LOC: PNWHC3 08:20
PROVIDERS: ATTEND Specialist
DX: M47.26 Other spondylosis with radiculopathy, lumbar region (principal)
CPT/HCPCS: 99211

== ENCOUNTER → 2024-06-20 | Outpatient (CLI) | payer MEDICARE ==
[2024-06-20 17:08] LABS: ALT 24 U/L (8-44); AST 21 U/L (13-35); Blood Urea Nitrogen 17.4 mg/dL (9.0-27.0); Uric Acid 3.6 mg/dL (2.9-7.7)
== END | disposition home or self-care (01) ==
LOC: LABWHC1 10:08
PROVIDERS: ATTEND Podiatrist
DX: M10.071 Idiopathic gout, right ankle and foot (principal); M10.072 Idiopathic gout, left ankle and foot
CPT/HCPCS: 36415; 82565; 84450; 84460; 84520; 84550

== ENCOUNTER → 2024-06-24 | Outpatient (CLI) | payer MEDICARE ==
[2024-06-25 02:33] LABS: Basophils # (A) 0.08 X 10*3/uL (0.00-0.10); Eosinophils % (A) 2.6 %; HCT 43.4 % (37.2-46.3); HGB 13.8 g/dL (12.0-15.0); Lymphocytes # (A) 2.58 X 10*3/uL (0.90-5.00); Lymphocytes % (A) 33.6 %; MCH 29.4 pg (27.0-32.0); MCHC 31.8 g/dL (32.0-37.0); MCV 92.3 FL (80.0-97.0); Mean Platelet Volume 12.7 FL (9.5-12.2); Monocytes # (A) 0.78 X 10*3/uL (0.20-1.00); Monocytes % (A) 10.1 %; NRBC Per 100 WBC 0 X 10*3/uL (0.00-0.01); Neutrophils # (A) 3.97 X 10*3/uL (1.80-7.70); Neutrophils % (A) 51.7 %; Platelet Count 274 X 10*3/uL (140-440); RDW 13.7 % (11.5-14.5); WBC 7.69 X 10*3/uL (4.50-10.00)
[2024-06-25 03:30] LABS: BUN/Creat Ratio 30.43 Ratio (12.00-20.00); Blood Urea Nitrogen 21.3 mg/dL (9.0-27.0); Glucose 103 mg/dL (70-110)
[2024-06-25 03:31] LABS: ALT 23 U/L (8-44); AST 22 U/L (13-35); Albumin 4.2 g/dL (3.8-4.9); Alkaline Phosphatase 130 U/L (41-126); Calcium 9.4 mg/dL (8.7-10.3); Carbon Dioxide 22.7 mmol/L (21.6-31.8); Chloride 104 mmol/L (96-109); Globulin 2.8 g/dL (1.6-3.3); Potassium 4.3 mmol/L (3.5-5.5); Sodium 140 mmol/L (135-145); Total Bilirubin <0.2 mg/dL (0.3-1.2)
== END | disposition home or self-care (01) ==
LOC: LABWHC1 15:35
PROVIDERS: ATTEND Family Medicine
DX: I10 Essential (primary) hypertension (principal); E03.9 Hypothyroidism, unspecified
CPT/HCPCS: 36415; 80053; 82306; 83036; 84443; 85025; 85610

== ENCOUNTER → 2024-06-25 | Outpatient (CLI) | payer MEDICARE ==
[2024-06-25 19:10] LABS: INR 0.96 sec (0.93-1.11); Prothrombin Time 10.4 sec (9.9-11.9)
== END | disposition home or self-care (01) ==
LOC: LABWHC1 13:24
PROVIDERS: ATTEND Family Medicine
DX: I10 Essential (primary) hypertension (principal); E03.9 Hypothyroidism, unspecified
CPT/HCPCS: 36415; 85610

== ENCOUNTER → 2024-07-12 | Outpatient (CLI) | payer MEDICARE | END | disposition home or self-care (01) | LOC: LABPAT 10:40 | PROVIDERS: ATTEND Orthopaedic Surgery | DX: Z01.818 Encounter for other preprocedural examination (principal); Z22.322 Carrier or suspected carrier of Methicillin resistant Staphylococcus aureus; M13.88 Other specified arthritis, other site | CPT/HCPCS: 86850; 86900; 86901; 87070 ==

== ENCOUNTER → 2024-07-12 | Outpatient (CLI) | payer MEDICARE ==
--- NOTE | 2024-07-12 13:10 | BD ---
EXAMINATION TYPE: Axial Bone Density DATE OF EXAM: 07/12/2024 CLINICAL HISTORY: 74 years old Female. ICD-10 CODE: M8588 DISORDER OF BONE DENSITY , Additional Hist ory: Height: 64 Weight: 182 FRAX RISK QUESTIONS: Family History (Parent hip fracture): yes History of Fracture in Adulthood: yes Secondary Osteoporosis: yes 1. Type 1 Diabetes: 2. Hyperthyroidism: yes, now reversed 3. Menopause before 45: yes RISK FACTORS HISTORY OF: hx of left breast cancer, lumpectomy with radiation, left hip replacement, left tkr, hx of toe fxs, S I Joint out of alignment MEDICATIONS: cholesterol meds, bp meds, hx of radiation treatments Thyroid Medications: yes, since age 25, (49 yrs) EXAM MEASUREMENTS: Bone mineral densitometry was performed using the [employer] System. Bone mineral density as measured about the Lumbar spine is: ----- L1-L4(G/cm2): 1.046 T Score Values are as follows: ----- L1: -1.5 ----- L2: -1.0 ----- L3: -1.3 ----- L4: -0.9 ----- L1-L4: -1.1 Z Score Values are as follows: ----- L1: -0.3 ----- L2: 0.1 ----- L3: -0.1 ----- L4: 0.2 ----- L1-L4: 0.0 Bone mineral density has: Increased 3.5% since study of: 07.11.2022 Bone mineral density about the R hip (g/cm2): 0.705 T Score values are as follows: -----R Neck: -1.0 -----R Total: -2.4 Z Score values are as follows: -----R Neck: 0.5 -----R Total: -1.1 Bone mineral density has: Increased 0.1% since study of: 07.11.2022 FRAX%s: The graph provided illustrates a 21.0% chance for a major osteoporotic fx and a 7.4% chance f or the hips probability for fx in 10 years time. IMPRESSION: Osteopenia (T Score between -2.5 and -1). There is slightly increased risk of fracture and the patient may be considered for treatment. Re-Screen 2-5 years. NOTE: T-SCORE=SD OF THE YOUNG ADULT MEAN. [facility], , 07/12/2024 1:08 PM
== END | disposition home or self-care (01) ==
LOC: RADBDWWP 10:35
PROVIDERS: ATTEND Internal Medicine Hematology & Oncology
DX: M85.89 Other specified disorders of bone density and structure, multiple sites (principal); D05.92 Unspecified type of carcinoma in situ of left breast; J45.21 Mild intermittent asthma with (acute) exacerbation; I10 Essential (primary) hypertension; E10.9 Type 1 diabetes mellitus without complications; E05.90 Thyrotoxicosis, unspecified without thyrotoxic crisis or storm; Z78.0 Asymptomatic menopausal state; Z85.3 Personal history of malignant neoplasm of breast
CPT/HCPCS: 77080

== ENCOUNTER → 2024-07-15 | Outpatient (CLI) | payer MEDICARE ==
--- NOTE | 2024-07-17 07:44 | MM ---
Reason for Exam: Screening (asymptomatic). Last screening mammogram was performed 12 month(s) ago. Patient History: Menarche at age 13. First Full-Term at age 23. Left ovary removed at age 43. Right ovary removed at age 43. Hysterectomy at age 43. Postmenopausal. Breast cancer, left, age 53. Previous chest radiation therapy at age 53. Estrogen for 8 years from age 43 until age 51. Hormonal Contraceptives for 3 years from age 24 until age 43. Tamoxifen, starting at age 54 for 5 years. Cyst Aspiration on the Left side. Lumpectomy on the Left side. Core Biopsy on the Left side. 01/02/2004, Malignant Stereotactic Core Biopsy on the left side. Radiation Therapy, left. Sister had breast cancer, age 57. Prior Study Comparison: 07/07/2021 Bilateral Screening Mammogram, [facility]. 07/11/2022 Bilateral MG 3D screening mammo w/cad, [facility]. 07/12/2023 Bilateral MG 3D screening mammo w/cad, [facility]. Tissue Density: The breasts are heterogeneously dense, which may obscure small masses. Findings: Analyzed By CAD. There is no suspicious group of microcalcifications or new suspicious mass in either breast. Postsurgical changes left breast stable. Chronic nodularity right breast stable. Benign appearing calcifications. Overall Assessment: Benign, BI-RAD 2 Management: Screening Mammogram of both breasts in 1 year. . Patient should continue monthly self-breast exams. A clinical breast exam by your physician is recommended on an annual basis. This exam should not preclude additional follow-up of suspicious palpable abnormalities. Note on Randa scores and lifetime risk: 1. A Randa score greater than 3% is considered moderate risk. If this is the case, consider specialist referral to assess eligibility for a risk reducing agent. 2. If overall lifetime risk for the development of breast cancer is 20% or higher, the patient may qualify for future screening with alternating mammogram and breast MRI. [facility], , 07/17/2024 7:41 AM. Electronically signed and approved by: Danny Geiger M.D. Radiologis
== END | disposition home or self-care (01) ==
LOC: RADMAMWWP 13:57
PROVIDERS: ATTEND Internal Medicine Hematology & Oncology
DX: Z12.31 Encounter for screening mammogram for malignant neoplasm of breast (principal); Z90.722 Acquired absence of ovaries, bilateral; Z78.0 Asymptomatic menopausal state; Z85.3 Personal history of malignant neoplasm of breast; Z80.3 Family history of malignant neoplasm of breast; R92.333 Mammographic heterogeneous density, bilateral breasts
CPT/HCPCS: 77063; 77067

== ENCOUNTER → 2024-07-19 | Day surgery (SDC) | payer MEDICARE ==
[2024-07-15 12:49] VITALS: BMI 30.1
[~2024-07-19] MED LIST changes: +HYDROmorphone (PF) 1 MG/ML ONE; -LACTATED RINGERS 1,000 ML IV SCH; +LIDOCAINE 1% (10MG/ML) FOR IV START INTRADERMA PRN; +LIDOCAINE 1% INJ 10MG/ML (20 ML MDV) ONE; +MIDAZOLAM 2 MG/2 ML VIAL IV PRN; +MIDAZOLAM 2 MG/2 ML VIAL ONE; +ONDANSETRON 4 MG/2 ML VIAL IVP PRN; +PHENYLEPHRINE 10 MG/ML VIAL ONE; +PROPOFOL 10 MG/ML 20 ML VIAL IV ONE; +SUCCINYLCHOLINE CHLORIDE 200 MG/10 ML VIAL IV ONE; +TRANEXAMIC 1,000 MG/100ML-NACL 1,000 MG in SALINE 1 100ML.BAG IVPB PRN; +TRANEXAMIC 1,000 MG/100ML-NACL PREMIX BAG ONE; +fentaNYL (PF) 50 MCG/ML 2 ML AMP IVP PRN; +fentaNYL (PF) 50 MCG/ML 2 ML AMP ONE
[2024-07-19] MEDS: IV FLUID CONTINUATION 1,000 ML IV ONE (06:59)
--- NOTE | 2024-07-19 07:02 | P.HPOR ---
History of Present Illness H&P Date: 07/12/24 .D:Date: 07/12/24 : 01:36pm .T:Title: *RECHECK/PRE-OP H1 KONRAD RAMÍREZ [facility] [address] [place] [address] [place] [address]| PROVIDER: REG RUSSO DO CLINICAL SUMMARY: *Ms. Castellano is a 74-year-old female presenting with right SI joint pain (VAS 4/10) that increases with sitting, asa-pu-iygur transitions, and stairs. She has undergone three right SI joint injections with progressive relief (>50%, 60%, and 100%) Physical exam reveals positive right-sided provocative tests including Dorinda's, FABER4, compression, distraction, and thigh/hip thrust maneuvers? Imaging shows right SI joint sclerosis with degenerative changes and anterior osteophytesMsJeancarlos Castellano is a 74-year-old female presenting with right SI joint pain (VAS 4/10) that increases with sitting, pti-op-[id number] transitions, and stairs. She has undergone three right SI joint injections with progressive reli ef (>50%, 60%, and 100%). Physical exam reveals positive right-sided provocative tests including Dorinda's, FABER4, compression, distraction, and thigh/hip thrust maneuvers. 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 Surgical plan is for a RIGHT sacroiliac joint fusion, minimally invasive lateral approach with IONM and navigation. Risks and benefits discussed as below and patient is willing to proceed with surgery as outlined. ----- DEMOGRAPHICS: Age: 74 year Height: 5'5.5" Weight: 177 lbs BP:/ BMI: 29.01 kg/m2 Occupation: *Retired ------ CC: *right SI Joint pain VAS: * 4 ----- HISTORY: Ms. Castellano presents to the office today, 07/12/24, for *a pre-operative appointment preceding her Right SI Joint fusion scheduled for 07/19/24. Patient continues to reports right SI joint pain that is increased with sitting, sit to stand, and stairs. She has had 3 right SI joint injections wit relief, 1 at the hospital and 2 in office. She is currently taking Silverthorne 7.5, Tylenol, and Aspirin. Patient ambulates independently. * Patient denies any f/c/sob/cp, perineal numbness or tingling, bowel, or bladder incontinence/retention. * The patients past social, medical, family, surgical history, as well as review of systems, have been reviewed. Please refer to the History and Physical form that has been scanned into our electronic medical record system. * 16 points review of systems completed and as stated in HPI, all other systems reviewed are negative. ----- PAST TREATMENTS: PAST IMAGING: -*YES -* TRAUMA RELATED: -*NO -* WORK RELATED: -*NO -* PT IN LAST 6 MONTHS: -*YES -* PHYSICIAN DIRECTED HOME EXERCISE PROGRAM: -*YES -* ACTIVITY MODIFICAITON: -*YES -* MEDICATIONS: -*YES -* ALTERNATIVE INTERVENTIONS (CHIROPRACTIC, ACCUPUNCTURE, MASSAGE, RICE): -*YES -* BRACING: -*NO -* INJECTIONS (SINGH, TF, RFA): -*YES, Right SI Joint injections #1 in office >50% relief #2 in office 60% relief' #3 in office 100% relief ----- MEDICAL HISTORY: Past Medical History: REVIEWED STATED IN CHART * Past Surgical History: REVIEWED STATED IN CHART * Social History: REVIEWED STATED IN CHART SMOKING: * Never smoker ETOH: * None SUBSTANCES: *None Family History: REVIEWED STATED IN CHART Current Medications: DEL none P1 Current Medications: Rx: allopurinoL 100 mg tablet Ref: 0 Instructions: Take 1 tablet QOD Rx: aspirin 81 mg tablet,delayed release Ref: 0 Instructions: take 1 tablet (81 mg) by oral route once daily Rx: Clarinex Ref: 0 Rx: HYDROcodone 10 mg-acetaminophen 325 mg tablet Ref: 0 Instructions: take 1 tablet by oral route every 4-6 hours as needed for pain Rx: levothyroxine 137 mcg tablet Ref: 0 Instructions: take 1 tablet (137 mcg) by oral route 5 X a week Rx: levothyroxine 150 mcg tablet Ref: 0 Instructions: take 1 tablet (150 mcg) by oral route 2 X a week Rx: losartan 100 mg tablet Ref: 0 Instructions: take 1 tablet (100 mg) by oral route once daily Rx: meclizine 25 mg tablet Ref: 0 Instructions: take 1 tablet (25 mg) by oral route 1 times per day as needed Rx: rosuvastatin 10 mg tablet Ref: 0 Instructions: take 1 tablet (10 mg) by oral route once daily Rx: aspirin 81 mg tablet,delayed release Ref: 0 Instructions: take 1 tablet (81 mg) by oral route once daily P1 ----- PHYSICAL EXAM: General: AOX3, NAD, Well hydrate, well nourished HEENT: No lumps or masses Extremities: No color changes, no pooling *Heart: RRR, no murmur, no gallop *Lungs: CTAB, no w/r/r INTEGUMENT: Appearance: * Normal color and turgor Surgical Incisions: *N/A Hairy Patches: ABSENT Dorsal Skin Dimples: Normal [employer] spots: ABSENT PALPATION: TTP Midline: *NO Paracervical: *NO Parathoracic: *NO Paralumbar: *NO SIJ TESTING (Dorinda's, FABER4, Compression, Distraction, Thigh Thrust, Hip Thrust): * TESTED * POSITIVE FINDINGS: * Right Dorinda's, FABER4, Compression, Distraction, Thigh Thrust, Hip Thrust NEGATIVE FINDINGS: * Left Dorinda's, FABER4, Compression, Distraction, Thigh Thrust, Hip Thrust POSTURAL BALANCE: Coronal: *BALANCED Sagittal: *BALANCED Shoulder height: LEVEL Pelvic Girdle: LEVEL ROM AND APPEARANCE: Neck: *UNRESTRICTED * Lumbar: *RESTRICTED * Shoulders: Symmetrical Hips: Symmetrical Knees: Symmetrical Hands: Symmetrical Feet: Symmetrical VASCULAR STATUS: PALPABLE PULSES B/L UE AND LE 2/4 RAD/ULNAR/DP/PT Edema: NONE NEUROLOGICAL EXAMINATION: Mental Status: Awake, alert, fully oriented with normal attention, jade ntration, and memory. Fluent appropriate speech. CRANIAL NERVES: I: Olfactory not assessed. II: Visual acuity normal, no visual field deficit noted with confrontation. III, IV: Normal pupillary reflexes & intact extraocular movements without nystagmus. V, : Intact symmetrical facial sensation. VII: Intact symmetrical facial motor movement: Hearing intact. IX, X: Intact gag, swallow, & normal voice. XI: Sternocleidomastoid, trapezius function intact. XII: Tongue midline with normal movements. TENSIONING: * L'HERMITTE'S SIG:*NEG SPURLUNG'S SIGN:*NEG UPPER EXTREMITY TENSIONING SIGNS: *NEG CUBITAL TUNNEL COMPRESSION:*NEG TINELS AT WRIST:*NEG STRAIGH LEG RAISE:*NEG CONTRALATERAL STRAIGHT LEG RAISE: *NEG MOTOR EXAM (0-5/5, NT) Muscle appearance: *Symmetrical, without signs of atrophy or dystrophy UPPER EXTREMITY RIGHT LEFT Shoulder Abduction *5 *5 Biceps *5 *5 Triceps *5 *5 Wrist Extension *5 *5 Hand Intrinsics *5 *5 Chief Minister *5 *5 LOWER EXTREMITY RIGHT LEFT Hip Flexion *5 *5 Knee Extension *5 *5 Knee Flexion *5 *5 Dorsiflexion *5 *5 Plantarflexion *5 *5 EHL *5 *5 FHL *5 *5 REFLEXES (0-4/2, NT): RIGHT LEFT Bicep 2 2 Brachioradialis 2 2 Triceps 2 2 Patellar 2 2 Achilles 2 2 PATHOLOGICAL REFLEXES: RIGHT LEFT MARLEY'S *ABSENT *ABSENT CLONUS *ABSENT *ABSENT BABINSKI *ABSENT *ABSENT RECTAL TONE: *INTACT/NT SENSATION (0-4, NT): Sensation intact to LT and Pain * C5-T1 distribution BUE * L2-S2 distribution BLE *Exceptions below* DERMATOMAL DEFICIT/RADICULAR PATTERN: *NA GAIT AND FUNCTIONAL EVALUATION: AMBULATORY AID *None ROMBERG'S TEST *INTACT HAND AND FINGER DEXTERITY INTACT *YES DYSDIADOCHOKINESIA EXAM NEG B/L *YES TOE/HEEL WALK INTACT WITH GOOD BALANCE *YES SQUAT AND RISE W/O ASSISTANCE TO 60 DEG KNEE FLEXION *YES SINGLE LEG STANCE *INTACT TRENDELENBURG *NEG ----- IMAGING: Images reviewed and demonstrate RIGHT SIJ sclerosis, with joint space widening and osteophyte formation anteriorly as well as posteriorly. There is sclerosis, subchondral cyst formation and degenerative changes. There are no lesions, fractures or other issues noted. There is no other pathology to explain her current sx. MRI of Lumbar spine, XR of the SI joints and CT of the pelvis are reviewed as well and similar findings are present. ----- IMPRESSION: It was my pleasure to have seen and examined Ramya. I reviewed the patient's clinical syndrome, physical findings, and imaging studies during the appointment today. It is my impression that the patient has a diagnosis of. 1.*Right sacroiliitis severe 2.*Low back pain 3. LEFT Greater trochanteric bursitis ----- DISCUSSION: -*I have discussed with the patient their clinical signs and symptoms, imaging, and treatment options. We have discussed risks, benefits, potential outcomes and natural course as pertains top their issues. The patient understands and would like to proceed as follows below: SURGICAL RECOMMENDATION -*RIGHT SACROILIAC JOINT FUSION, MINIMALLY INVASIVE WITH NAVIGATION Surgical Procedure Risk Review Ramya Castellano is a 74 year old female presenting for evaluation of sudden onset of *RIGHT SI JOINT PAIN, DIFFICULTY WITH AMBUATION AND SINGLE LEG STANCE DIFFICLUTY WITH STAIRS AND PAIN WITH ACITIVYT AND NOW REST. It was my pleasure to have seen and examined Ms. Castellano. In our visit today we have had a chance to go over subjective complaints, physical examination findings and treatments, including the natural course history without intervention and various interventional options. The imaging demonstrates *RIGHT SI JOINT SCLEROSIS, WITH DEGENERATIVE CHANGES, ANTERIOR OSTEOPHYTES, NO OTHER CAUSE FOR HER SX . On physical exam, Ms. Castellano demonstrates *POSITIVE PROVOCATIVE SIGNS ON THE RIGHT WITH PAIN WITH SINGLE LEG STANCE, STARIS, COMPRESSION, THIGH AND HIP THRUST. PAIN RELIEVED WITH INJECTIONS >80% BUT TRANSIENT . I explained to the patient that as her condition progresses it could cause *CONTINUED AND PROGRESSIVE PAIN AND DEBILITY . At this time, based on the patients imaging and physical exam, I recommend surgery in the form or a: *RIGHT SACROILIAC JOINT FUSION . I discussed the risk and benefits of this procedure at length with Ms. Castellano. The patient spouseagreed to consider pursuing the procedure mentioned above. Plan: 1. *RIGHT SACROILIAC JOINT FUSION, MINIMALLY INVASIVE 2. * CLARANCES CONIRMED 3. * Review of surgical risks and benefits as well as an educational packet on the proposed surgical procedure. 4. DEL PRE OP LABS CONFIRMED Risks: All surgical procedures come with inherent risks, including those related to positioning, anesthesia, intraoperative findings, and postoperative complications. It is important to understand that surgery does not come with any guarantee of a successful outcome as complications and adverse events are always possible. The patient was given a handout in office today discussing the surgical procedure and risks associated with the intervention, both of which were discussed with the patient. These risks include but are not limited to the following: ? Experiencing same, different or even worse symptoms in back, neck, arms, or legs compared to before surgery. ? Requiring further surgery or other forms of treatment presently or at some time in the future at same or other levels of the intended spine surgery. ? On an extreme but fortunately relatively rare basis severe complication such as blindness, stroke, heart attack, temporary and/or permanent nerve injury, paralysis, coma, or may occur, sometimes without known explanation. ? Surgical complications may include but are not limited to risk of infection, fluid accumulation in the surgical dissection site, including a seroma or hematoma, that requires additional surgery, wound drainage, bleeding, new numbness or weakness, vision changes/loss, spinal fluid leakage, non-healing and/or infected incision, headaches, difficulty or inability to swallow, hoarseness, hemopneumothorax, pneumothorax, impotence, retrograde ejaculation, vaginal dryness; injury to nerves, spinal cord, blood vessels, lymphatics or ot her vital organs (i.e., bowel injury, injury to the great vessels); heterotopic bone formation; complications related to the hardware such as screws, rods, cages including misplaced hardware, device failure, instrumentation at the wrong spine level, hardware fracture/breakage, or hardware loosening; vertebral failure of the spinal column above or below the newly placed hardware; retained surgical instrumentations or devices and the need for further surgery. ? Medical risks of the planned spine surgery include but are not limited to generalized Infections to the whole body or local areas outside of the surgical site (sepsis), heart attack, bleeding, anaphylaxis, meningitis, seizure, epilepsy, hearing loss, burn leblanc, laceration of the head or other areas of the body, bruising, hypersensitivity of the skin, bladder over distension; allergic reaction; shoulder injury related to positioning; fat, blood and air clots to other areas of the body like heart, lungs, brain; failure of internal organs such as lungs, kidneys, liver and excessive bleeding. If blood transfusions are necessary, note that transfusions may cause intolerance reactions such as anaphylaxis or other complex reactions. Despite best efforts, the results of spine surgery might not heal in terms of bone, soft tissues such as skin, fascia, ligaments, and joints. Additionally, in order to achieve best possible results, spine surgery may be carried out beyond the initially planned levels and involve decompression, fusion including insertion of hardware at levels other than the original intended area of surgical interest change some portions of the procedure in order to ensure the best possible outcomes. With spine surgery and spinal fusion, there are different off label uses of instrumentation (devices, implants and hardware) as well as biological substances (bone morphogenic proteins, demineralized bone matrix) as well as using extra bone from allograft sources (i.e. cadaver bone) or autograft (iliac crest bone, ribs, or the spine itself). The patient has been given information about these practices and their inherent risks and benefits. Konrad Wong Physician Assistants are medically trained surgical providers who function in the outpatient, inpatient, and operating room setting under the direct supervision of the attending surgeon.They assist in the operating room with direct supervision of the attending surgeons. The patient has had a chance to review all the listed information, has been given print outs detailing this information, and has had all his/her questions answered to their satisfaction. It was my pleasure to have seen and examined Ms. Castellano. In our visit today we have had a chance to go over my understanding of our patient's current condition, the natural course history without intervention and various interventional options. Questions were invited and answered, and the patient wishes to proceed as outlined above. I have seen and examined the patient for 25 minutes and we have spent more than 50% of the time in repeat and detailed counseling about the patient's condition, its natural course history with out and as much as can be predicted with surgery and re-review of various surgical treatment options. In conclusion,Ms. Castellano and her spouse/partner requested we proceed with the above suggested surgery and are willing to accept risks and limitations of the suggested surgery as nature of the disease process and our best attempts at treatment for the condition. Thank you again for allowing us to be part of your patient's care. Please don't hesitate to contact me if you have any further questions. Medical Necessity: Surgery is medically necessary due to severe right sacroiliitis with documented failure of conservative treatments including physical therapy, activity modification, and alternative interventions. While SI joint injections provided significant relief, the effects were transient. The patient demonstrates functional limitations with ambulation, single-leg stance, and stairs. Without intervention, the condition is expected to cause continued and progressive pain and debility. The patient has demonstrated appropriate surgical candidacy through positive provocative testing and temporary relief with diagnostic/therapeutic injections. FOLLOW UP: POST-OP PLAN AT NEXT VISIT: * RECHECK PATIENT EDUCATION: Medications Reviewed: YES In our visit today Ms. Castellano and I have had a chance to go over my understanding of the patient's current condition, the natural course history without intervention and various interventional options. Questions were invited and answered, and the patient wishes to proceed as outlined above. I will be sure to keep you updated after Ms. Castellano returns here for further follow-up. Thank you again for your referral. Please do not hesitate to contact me if you have any further questions. Signed and authenticated by: Reg Jones [facility] [address], [address] [address] . This message is confidential, intended only for the named recipient(s) and may contain information that is privileged or exempt from disclosure under applicable law. If you are not the intended recipient(s), you are notified that the dissemination, distribution or copying of this information is prohibited. If you received this message in error, please notify the sender then delete this message. Past Medical History Past Medical History: Asthma, Cancer, COPD, Hearing Disorder / Deafness, Hyperlipidemia, Hypertension, Osteoarthritis (OA), Thyroid Disorder Additional Past Medical History / Comment(s): Hx Breast Cancer 2003, HAD RADIATION. LEFT EAR DEAF. GRAVES DISEASE. HX VERTIGO. LEFT KNEE PAIN. GETS MUSCLE SPASMS IN LEGS AT NIGHT. History of Any Multi-Drug Resistant Organisms: None Reported Past Surgical History: Breast Surgery, Ear Surgery, Hysterectomy, Joint Replacement, Orthopedic Surgery, Tonsillectomy Additional Past Surgical History / Comment(s): Left breast lumpectomy X2, LEFT EAR DRUM REPAIR, RIGHT KNEE SCOPE, MULTIPLE EYE SURGERIES, HAS STENT IN RIGHT EYE, RIGHT EYE TEAR DUCT SURGERY, EMERGENCY D&C, LEFT TOTAL KNEE REPLACEMENT, PAIN CLINIC PROCEDURE. Past Anesthesia/Blood Transfusion Reactions: Previous Problems w/ Anesthesia, Postoperative Nausea & Vomiting (PONV) Additional Past Anesthesia/Blood Transfusion Reaction / Comment(s): Othostatic hypotension after surgery. Smoking Status: Former smoker - Past Family History Mother Family Medical History: Cancer Additional Family Medical History / Comment(s): STOMACH CANCER. Sister(s) Family Medical History: Cancer Father Family Medical History: Unable to Obtain Medications and Allergies Home Medications Medication Instructions Recorded Confirmed Type Levothyroxine Sodium [Synthroid] 137 mcg PO MOTUWETHFRSA 11/12/16 07/15/24 History Levothyroxine Sodium [Synthroid] 150 mcg PO NEAL 11/12/16 07/15/24 History diazePAM [Valium] 2 mg PO BID PRN 11/12/16 07/15/24 History allopurinoL 100 mg PO Q48H 03/15/23 07/15/24 History Meclizine [Antivert] 25 mg PO TID PRN #15 tab 05/29/23 07/15/24 Rx Aspirin EC [Ecotrin Low Dose] 81 mg PO DAILY 02/16/24 07/15/24 History Cetirizine HCl [Zyrtec] 10 mg PO DAILY 02/16/24 07/15/24 History Cholecalciferol [Vitamin D3 (25 25 mcg PO DAILY 02/16/24 07/15/24 History Mcg = 1000 Iu)] Losartan Potassium 100 mg PO DAILY 02/16/24 07/15/24 History Rosuvastatin [Crestor] 10 mg PO HS 02/16/24 07/15/24 History HYDROcodone/APAP 7.5-325MG [Silverthorne 1 tab PO TID PRN 05/02/24 07/15/24 History 7.5-325] Allergies Allergy/AdvReac Type Severity Reaction Status Date / Time ibuprofen [From Motrin] Allergy Anaphylaxis Verified 07/15/24 12:28 Sulfa (Sulfonamide Allergy Swelling Verified 07/15/24 12:28 Antibiotics) neomycin AdvReac Unknown eye Verified 07/15/24 12:28 ointment caused itching, burning red eyes Tetracyclines AdvReac Nausea & Verified 07/15/24 12:28 Vomiting PET SCAN DYE Allergy Rash/Hives Uncoded 07/15/24 12:28 Physical Examination Osteopathic Statement: *. No significant issues noted on an osteopathic structural exam other than those noted in the History and Physical/Consult.
[2024-07-19] MEDS: LACTATED RINGERS 1,000 ML IV SCH (07:06)
[2024-07-19] MEDS: ONDANSETRON 4 MG/2 ML VIAL IVP ONE (07:15)
[2024-07-19] MEDS: ACETAMINOPHEN TAB 500 MG TAB PO PRN (07:16)
[2024-07-19] MEDS: GABAPENTIN 300 MG CAP PO PRN (07:16)
[2024-07-19] MEDS: DEXAMETHASONE SOD PHOSPHATE 4 MG/ML 1 ML VIAL IV ONE (07:16)
[2024-07-19] MEDS: LIDOCAINE 2% INJ 20 MG/ML SQ ONE ×2 (08:30→08:56)
[2024-07-19] MEDS: BUPIVACAINE (PF) 0.25% 30 ML VIAL SQ ONE ×3 (08:30→08:56)
[2024-07-19] MEDS: methylPREDNISolone ACETATE 40 MG/ML 1 ML VIAL INJ ONE ×2 (08:31→08:56)
[2024-07-19] MEDS: BUPIVACAINE (PF) 0.5% 30 ML VIAL SQ ONE (09:01)
[2024-07-19] MEDS: LIDOCAINE 2%-EPI 1:100,000 20 ML VIAL SQ ONE (09:01)
--- NOTE | 2024-07-19 09:30 | P.OP ---
Date of Procedure: 07/19/24 Preoperative Diagnosis: Current Active Problems Sacroiliitis, not elsewhere classified (Acute) Spondylosis without myelopathy or radiculopathy, lumbosacral region (Acute) Greater trochanteric bursitis of left hip (Acute) Postoperative Diagnosis: Current Active Problems Sacroiliitis, not elsewhere classified (Acute) Spondylosis without myelopathy or radiculopathy, lumbosacral region (Acute) Greater trochanteric bursitis of left hip (Acute) Procedure(s) Performed: 1. RIGHT SACROILIAC JOINT FUSION, MINIMALLY INVASIVE 2. USE OF [employer] NAVIGATION FOR THE ASSISTANCE IN ACCURATE SCREW PLACEMENT 3. LEFT GREATER TROCHANTER BURSAL INJECTION WITH CORTICOSTEROID UNDER FLUOROSCOPIC GUIDANCE USE OF IONM Implants: SI BONE TORQ SCREWS X3 10.5mm - - - Anesthesia: GETA Surgeon: Momo Ennis Magento Web Developer #1: Niko Gonzalez (was present and assisted with all aspects of the case frompositionto dressing placment) Estimated Blood Loss (ml): 10 IV fluids (ml): 1,000 Urine output (ml): 0 Pathology: none sent Indications for Procedure: Ms. Castellano is a 74-year-old female presenting with right SI joint pain (VAS 4/10) that increases with sitting, [id number] transitions, and stairs. She has undergone three right SI joint injections with progressive relief (>50%, 60%, and 100%) Physical exam reveals positive right-sided provocative tests including Dorinda's, FABER4, compression, distraction, and thigh/hip thrust maneuvers? 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 Castellano is a 74-year-old female presenting with right SI joint pain (VAS 4/10) that increases with sitting, [id number]-[id number] transitions, and stairs. She has undergone three right SI joint injections with progressive relief (>50%, 60%, and 100%). Physical exam reveals positive right-sided provocative tests including Dorinda's, FABER4, compression, distraction, and thigh/hip thrust maneuvers. 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 Surgical plan is for a RIGHT sacroiliac joint fusion, minimally invasive lateral approach with IONM and navigation. Risks and benefits discussed as below and patient is willing to proceed with surgery as outlined. Description of Procedure: RIGHT SI fusion MIS (GOLD) The patient was seen and examined in the preoperative area. All preoperative protocols were followed. Informed consent was obtained, risks and benefits of the procedure were discussed at length. Risks including bleeding infection damage to the surrounding tissue and risk of reoperation were discussed with the patient. Risk of anesthesia up to and including was discussed with the patient. These are outlined in the risk review. They were willing to accept these risks and all of the risks of surgery. The patient was given a weight- based dose of antibiotics in the form of 2 g Ancef. The patient was seen and evaluated by the anesthesia team who deemed them fit for surgery. The site was marked, the patient was willing to proceed with the procedure. The patient was transferred to the operative suite by the Department of anesthesia. They were then drifted off to sleep by the department anesthesia and GETA was performed. The patient tolerated this well. Once confirmation of lines and ventilation the patient was transferred to a [prone Andre table very carefully]. All bony prominences including wrists, elbows, axilla, chest, hips, and thighs, and feet were padded very well. Special attention was paid to the genitalia and these were padded accordingly. SCDs were placed on bilateral lower extremities and were connected. Arms were well padded and placed [on arm boards up and out in the 90/90 position]. Once in position, again we confirmed good ventilation capabilities and that lines were running appropriately. The patient's lumbopelvic spine was then exposed. 1010s were placed outlining the incision site. Standard alcohol was used to clean the incision site and allowed to dry. C-arm was used to biomark the patient and confirm level for incision which was marked with a skin marker. Operative briefing was performed with all teams and everyone in agreement to proceed. The patient was then prepped and draped in a normal sterile fashion. Timeout was then performed and all parties were in agreement with the procedure to be performed. Skin nicks were made over the PSIS on the left and pins placed into the PSIS for the tracker. Tracker was placed and a 3D Zhiem spin was obtained and registered. Once it was registered it was confirmed to be accurate. Preoperative pelvic CT and SPin were then merged in the Gold system and screws were pre-planned off the field. Once they were optimal we proceeded with placement. Skin incision was then made over the previously marked area over the RIGHT upper buttock region of the patient following the alar lines and mid sacral line. Blunt dissection was then taken down to the ilium. The first pin was then selected and placed optimally within the SI region superiorly using a navigated Jamshidi to find the path across the SIJ according to the pre planned position on navigation. This was then measured and drilled with a navigated tap and a screw placed using a navigated driver utility worker. This was repeated for the remaining two screws following the previously planned paths as described. All screws had excellent purchase and were confirmed to be in good position on AP lateral inlet and outlet views. Neuro monitoring was then used to test the superior screw for L5 and S1 and these tested above 15 mA. No neuro monitoring changes during surgery, no EMG. Final fluoroscopic images then confirmed good placement of hardware. A final 3D C arm spin was then done which confirmed screw placement in detail. We then thoroughly irrigated the wound. Deep fascia was closed with 0 Vicryl superficial closed with 2-0 Vicryl and skin closed with strata fix Monocryl. The wound was then cleaned and dressed with skin glue which was allowed to dry and then a Band-Aid. We then prepped strile the lateral side of the left hip and under fluoroscopic guidance a left greater trochanter injection was done with 18 g spinal needle with 40mg/ml 1ml of Kenolog mixed with 5cc of 0.25% marcaine and 5cc of 2% lidocaine with epi. INjection was done without issues and pt tolerated well. The patient was transferred back to their hospital bed atraumatically. Patient was then awakened and extubated by the department of anesthesia having tolerated the procedure very well with no complications. They were transferred to the postoperative care unit in stable condition.
[2024-07-19 09:45] VITALS: TEMP 96.8
--- NOTE | 2024-07-19 09:49 | FL ---
EXAMINATION TYPE: FL guidance operating room DATE OF EXAM: 07/19/2024 HISTORY: Fluoroscopy time Total dose area product (DAP) in cGy*m?, mGy*cm? (or similar): 1040.32 IMPRESSION: 1. Fluoroscopy time. [facility], , 07/19/2024 9:46 AM
--- NOTE | 2024-07-19 09:53 | FL ---
EXAMINATION TYPE: FL guidance operating room DATE OF EXAM: 07/19/2024 HISTORY: Fluoroscopy time Total dose area product (DAP) in cGy*m?, mGy*cm? (or similar): 17.65 IMPRESSION: 1. Fluoroscopy time. [facility], , 07/19/2024 9:50 AM
--- NOTE | 2024-07-19 09:54 | XR ---
EXAMINATION TYPE: XR Hip Limited LT DATE OF EXAM: 07/19/2024 COMPARISON: NONE CLINICAL INDICATION: Female, 74 years old with history of LT HIP INJECTION; FINDINGS: Fluoroscopy provided to physician performing procedure. See surgical dictation for report. IMPRESSION: See above [facility], , 07/19/2024 9:52 AM
[2024-07-19] MEDS: HYDROmorphone 0.5 MG/0.5 ML SYRINGE IVP PRN (10:22)
[2024-07-19 13:15] VITALS: RESP 18
[2024-07-19 13:44] VITALS: BP 166/83; PULSE 79
== END | disposition home or self-care (01) ==
LOC: OR 06:14
PROVIDERS: ATTEND Orthopaedic Surgery
DX: M46.1 Sacroiliitis, not elsewhere classified (principal); M47.817 Spondylosis without myelopathy or radiculopathy, lumbosacral region; M70.62 Trochanteric bursitis, left hip; M53.3 Sacrococcygeal disorders, not elsewhere classified; M16.11 Unilateral primary osteoarthritis, right hip; I10 Essential (primary) hypertension; E78.5 Hyperlipidemia, unspecified; C50.919 Malignant neoplasm of unspecified site of unspecified female breast; E07.9 Disorder of thyroid, unspecified; J44.89 Other specified chronic obstructive pulmonary disease; H91.90 Unspecified hearing loss, unspecified ear; H81.4 Vertigo of central origin; F41.9 Anxiety disorder, unspecified; Z98.1 Arthrodesis status; Z90.710 Acquired absence of both cervix and uterus; Z88.6 Allergy status to analgesic agent; Z88.2 Allergy status to sulfonamides; Z88.1 Allergy status to other antibiotic agents; Z79.82 Long term (current) use of aspirin; Z79.890 Hormone replacement therapy; Z79.899 Other long term (current) drug therapy
CPT/HCPCS: 72220; 73501; 27279; J1100; J0690; J2405; J1171; J0665 ×2; J1010; J2003

== ENCOUNTER → 2024-10-28 | Outpatient (CLI) | payer MEDICARE ==
[2024-10-28 15:22] LABS: ALT 17 U/L (8-44); AST 19 U/L (13-35); Albumin 4.3 g/dL (3.8-4.9); Albumin/Globulin Ratio 1.72 Ratio (1.60-3.17); Alkaline Phosphatase 115 U/L (41-126); BUN/Creat Ratio 28.29 Ratio (12.00-20.00); Blood Urea Nitrogen 19.8 mg/dL (9.0-27.0); Calcium 9.8 mg/dL (8.7-10.3); Carbon Dioxide 25.8 mmol/L (21.6-31.8); Chloride 103 mmol/L (96-109); Chol/HDL Ratio 2.59 Ratio; Globulin 2.5 g/dL (1.6-3.3); Glucose 118 mg/dL (70-110); LDL Cholesterol,Calculated 56.4 mg/dL (0.0-131.0); Potassium 4.2 mmol/L (3.5-5.5); Sodium 140 mmol/L (135-145); Total Bilirubin 0.4 mg/dL (0.3-1.2); Total Protein 6.8 g/dL (6.2-8.2); Uric Acid 4.1 mg/dL (2.9-7.7)
== END | disposition home or self-care (01) ==
LOC: LABWHC1 08:44
PROVIDERS: ATTEND Internal Medicine Interventional Cardiology
DX: I10 Essential (primary) hypertension (principal); E78.2 Mixed hyperlipidemia
CPT/HCPCS: 36415; 80053; 80061; 84550

== ENCOUNTER → 2024-12-04 | Outpatient (CLI) | payer MEDICARE ==
[2024-12-04 15:58] LABS: T4, Free (Free Thyroxine) 1.88 ng/dL (0.80-1.80)
== END | disposition home or self-care (01) ==
LOC: LABWHC1 11:42
PROVIDERS: ATTEND Family Medicine
DX: E03.9 Hypothyroidism, unspecified (principal)
CPT/HCPCS: 36415; 84439; 84443

== ENCOUNTER → 2025-01-21 | Outpatient (CLI) | payer MEDICARE ==
--- NOTE | 2025-01-25 | MR ---
EXAMINATION TYPE: MR orbits wo/w con DATE OF EXAM: 01/21/2025 5:41 PM COMPARISON: None. CLINICAL INDICATION: Female, 74 years old with history of H57.13 OCULAR PAIN, BILATERAL, Right eye pa in, history of tear duct decompression TECHNIQUE: Multiplanar, multiecho imaging on a 3.0 Angela magnet is performed through the brain. Stud y is performed within 24 hours of arrival to the hospital.Multiplanar, multiecho imaging on a 3.0 Miriam la magnet is performed through the orbits. IV Contrast: 8.5 mL Gadobutrol (None, if empty) FINDINGS: The craniovertebral junction is normal. The pituitary is normal. Globes are symmetrical. Extraocular muscles appear normal. Optic nerves appear unremarkable. Optic ch iasm appears normal. No intraconal or extraconal fat abnormality is present. Lacrimal glands appear u nremarkable. Superior ophthalmic veins appear patent. Normal vascular flow voids are within the [place]. There is some diffuse mucosal thickening within ethmoid air cells. No abnormal enhancement is evident. IMPRESSION: 1. Unremarkable bilateral orbits. [facility], , 01/24/2025 11:58 PM
== END | disposition home or self-care (01) ==
LOC: RADMRIMAIN 16:59
PROVIDERS: ATTEND Ophthalmology
DX: H57.13 Ocular pain, bilateral (principal)
CPT/HCPCS: 70543; A9585

== ENCOUNTER → 2025-03-03 | Outpatient (CLI) | payer MEDICARE ==
[2025-03-03 20:34] LABS: T4, Free (Free Thyroxine) 1.81 ng/dL (0.80-1.80)
== END | disposition home or self-care (01) ==
LOC: LABWHC1 13:19
PROVIDERS: ATTEND Nurse Practitioner Family
DX: E03.9 Hypothyroidism, unspecified (principal)
CPT/HCPCS: 36415; 84439; 84443